=== PATIENT | female | born 1940 | race Caucasian/White ===

== ENCOUNTER 2024-03-09 16:19 | Emergency (ER) | payer MEDICARE, SELFPAY ==
--- NOTE | ~2024-03-09 | CT_ITS ---
EXAMINATION: CT head/brain wo IV con, CT cervical spine wo IV con INDICATION INFORMATION: fell hit head COMPARISON: Noncontrast head CT 12/12/2018 TECHNIQUE: Separate noncontrast CT examinations of the head and cervical spine were performed. Coronal and sagittal images were created for each examination at the technologist workstation. This CT examination was performed using dose optimization techniques as appropriate, variously including the following: *Automated exposure control *Adjustment of mA and/or kV according to patient size (this includes techniques or standardized protocols for targeted exams where dose is matched to indication/reason for exam; i.e. extremities or head) *Use of iterative reconstruction technique DLP: 750.62 mGy-cm FINDINGS: Head: Small left parietal scalp hematoma without subjacent calvarial fracture. The mastoid air cells and visualized portions of the paranasal sinuses are well aerated. There is no evidence of acute intracranial hemorrhage or territorial infarction. No abnormal mass effect or midline shift is seen. [place] to white matter differentiation is well preserved. No extra-axial fluid collections are identified. No hydrocephalus. No significant volume loss. Patchy periventricular and deep white matter hypoattenuation is consistent with mild small vessel ischemic changes. Cervical spine: There is no evidence of acute cervical spine fracture. Vertebral bodies remain normal in height. Exaggeration of the usual cervical lordosis with mild dextroconvex curvature. Mild, grade 1, 2 mm anterolisthesis of C3 on C4 and grade 2, 5 mm anterolisthesis of C4 on C5, likely secondary to moderate to severe left-sided facet arthropathy.. Multilevel loss of disc space height, moderate at C4-C5 and C5-C6. No areas of significant osseous spinal canal narrowing. No pre- or paravertebral soft tissue abnormality is identified. Mild biapical pleural-parenchymal scarring. Visualized portions of the lung apices are otherwise unremarkable. The thyroid gland is unremarkable. CT/CT cervical spine wo IV con IMPRESSION: 1. Small left parietal scalp hematoma without subjacent calvarial fracture. No other acute traumatic abnormality of the brain or cervical spine. 2. Moderate multilevel degenerative cervical spondylosis, most pronounced at C4-C5, where there is moderate anterolisthesis and disc space height loss.
--- NOTE | 2024-03-09 16:35 | ED.FALL ---
HPI - Fall General Chief Complaint: Fall Stated Complaint: fell hit head Time Seen by Provider: 03/09/24 18:26 Source: patient and family Mode of arrival: ambulatory Limitations: no limitations History of Present Illness HPI Narrative: 84 year old female with no significant past medical history presents emergency department, with family, for evaluation after fall. She reports that she hit the side of her head while trying to open a door when she lost her balance causing her to fall to the floor and her head hit the wall which is concrete. Denies LOC or headache. States that she has pain in her posterior head where she has a 'lump'. On baby aspirin but no other anticoagulants. Pertinent positives and negatives discussed in HPI Related Data Allergies Allergy/AdvReac Type Severity Reaction Status Date / Time nut - unspecified [NUTS] Allergy Severe ANAPHYLAXIS Verified 03/09/24 16:42 nitrofurantoin Allergy Unknown ITCHING Verified 03/09/24 16:42 [From MACROBID] Review of Systems Review of Systems: Yes all other systems are reviewed and are negative [facility] Social History Social History Advance Directives: Yes Advance Directives Information Provided: No Advance Directives on File: No Do you have a plan to hurt others: No Plan Physical Exam Vital Signs: Vital Signs: Last Vital Signs Temp 97.8 F 03/09/24 19:23 Pulse 67 03/09/24 19:23 Resp 18 03/09/24 19:23 BP 150/45 H 03/09/24 19:23 Pulse Ox 98 03/09/24 19:23 O2 Del Method Room Air 03/09/24 19:23 BMI result Body Mass Index 15.1 Nursing notes and vital signs reviewed. GENERAL APPEARANCE: A&0 x 4, generally well appearing, no acute distress HENMT: Normal to inspection face symmetrical. Normal external ears, nose. 8 mm superficial laceration at left parietal scalp with controlled bleeding EYE: PERRLA, EOM intact, structures appear normal NECK: Supple without stiffness or restricted ROM. HEART: Normal rate and regular rhythm, normal S1/S2, no M/R/G LUNGS: LS CTA, moving air well. Able to speak in complete sentences. No crackles, wheezes, or rhonchi auscultated BACK: No CVAT, no obvious deformity EXTREMITIES: Moving all extremities without difficulty. Normal capillary refill. NEUROLOGICAL: Alert and oriented, moving all 4 extremities with equal strength. CN not formally tested but appearing grossly intact. Observed to ambulate with normal gait. Cognition normal SKIN: Warm and dry without any lesions, rash, or visible sores Medical Decision Making Medical Decision Making MDM Narrative: Old records reviewed for previous imaging, lab studies, ECGs, and notes and additionally HPI obtained from patient's daughter. Patient was assessed the emergency department with no acute distress or toxicity noted. CT head and C-spine completed, which have independently interpreted, is negative for intracranial injury, fractures, or dislocations. Radiologist remarks on the parietal hematoma without fracturing. Patient's wound cleansed patient educated to keep wound clean and dry to prevent infection. Patient is safe for discharge at this time with plan for [id number] Tylenol and/or NSAID such as ibuprofen or naproxen for fever/discomfort with dosing as per packaging. HPI, PE, diagnostics, and plan discussed with patient and family with no unanswered questions at this time. Strict return precautions given to return to the emergency department with new, worsening, or concerning emergent symptoms. Recommended to follow-up with there primary care provider in 24-48 hours for further treatment and management. Differential Diagnosis Differential Diagnoses: The differential diagnosis associated with the presentation includes But not limited to fall, contusion fracture, dislocation, intracranial hemorrhage or injury, hematoma Independent Interpretation I performed an independent interpretation of an: CT Scan Independent Historian Clinical information obtained from an independent historian. History obtained from or confirmed by: Other Daughter Discharge Plan Discharge Clinical Impression: Fall, Left parietal scalp hematoma Patient Disposition: Home, Self-Care Instructions: Fall Prevention for Older Adults (ED), Scalp Contusion in Adults (ED) Additional Instructions: Your seen in the emergency department for evaluation after a fall. Your head and neck CT scan showed no evidence of bleeding inside the head or neck fractures or dislocations. Please rest and use ice for comfort You are safe for discharge at this time with plan for management of fever or discomfort with [id number] Tylenol and/or NSAID such as ibuprofen or naproxen with dosing as per packaging. Please return to the emergency department with new, worsening, or concerning emergent symptoms. Recommended to follow-up with your primary care provider in 24-48 hours for further treatment and management. Thank you for choosing [facility]. Referrals: [facility] [place]] [facility] [place]] [facility] [place]] Interventions: ED Discharge Assessment Last Done: 03/09/24 19:23 Discharge Date/Time: 03/09/24 19:24 Print Language: Faroese
[2024-03-09 16:36] VITALS: BP 144/87; PULSE 89; RESP 18; TEMP 36.5; O2SAT 99; BMI 15.1
[2024-03-09 18:17] VITALS: BP 146/88; PULSE 74; RESP 18; TEMP 36.6; O2SAT 99
[2024-03-09 18:58] VITALS: BP 150/45; PULSE 67; RESP 18; TEMP 36.6; O2SAT 98
--- NOTE | 2024-03-09 19:22 | PC.NURSE ---
this nurse did not see this patient, the patient was seen and discharged by the provider
[2024-03-09 19:23] VITALS: BP 150/45; PULSE 67; RESP 18; TEMP 36.6; O2SAT 98
== END 2024-03-09 19:24 | disposition home or self-care (01) ==
PROVIDERS: Emergency Provider Emergency Medicine; PCP Family Medicine
DX: S00.03XA Contusion of scalp, initial encounter (principal); W18.30XA Fall on same level, unspecified, initial encounter; Y93.9 Activity, unspecified; Y92.9 Unspecified place or not applicable; Y99.9 Unspecified external cause status
CPT/HCPCS: 70450; 72125; 99282; 99284

== ENCOUNTER 2024-08-21 11:26 | Emergency (ER) | payer MEDICARE, SELFPAY ==
--- NOTE | ~2024-08-21 | CT_ITS ---
EXAMINATION: CT HEAD WITHOUT CONTRAST CT FACIAL BONES WITHOUT CONTRAST CT CERVICAL SPINE WITHOUT CONTRAST CLINICAL INFORMATION: Fall. Right-sided facial pain. Head strike. COMPARISON: CT head from 03/09/2024. TECHNIQUE: Imaging was performed from the skull base to vertex without intravenous administration of contrast. In addition, helical noncontrast CT imaging was acquired through the cervical spine and facial bones and source images were reviewed along with axial reconstructions and sagittal and coronal MPRs. This CT examination was performed using dose optimization techniques as appropriate, variously including the following: *Automated exposure control. *Adjustment of mA and/or kV according to patient size (this includes techniques or standardized protocols for targeted exams where dose is matched to indication/reason for exam; i.e. extremities or head). *Use of iterative reconstruction technique. DLP: 1036 mGy-cm FINDINGS: Head: Chronic lacunar infarcts of the right lentiform nucleus and right thalamus.. No additional loss of kumar-white matter differentiation. No evidence of acute intracranial hemorrhage. Scattered and partially confluent hypoattenuation in the periventricular and deep white matter are consistent with moderate microangiopathy. Proportional prominence of the ventricles and sulcal spaces without evidence of obstructive hydrocephalus. No abnormal mass effect or midline shift. No extra-axial fluid collections. Calcific atherosclerotic disease of the intracranial internal carotid and vertebral arteries. No hyperdense vessel sign. No acute soft tissue or osseous abnormalities. Maxillofacial Bones: No evidence of maxillofacial bone fractures. The zygomatic arches remain intact. No nasal bone fracture. The nasal septum remains midline. No evidence of mandibular or maxillary fracture. The mandibular condyles remain well-seated in their respective temporal articular grooves. Moderate degenerative arthropathy of the left temporal mandibular joint. Normal appearance of the intraconal and extraconal fat. No evidence of traumatic injury to the extraocular musculature or globes. Mild mucosal thickening of the paranasal sinuses. The mastoid air cells and middle ear cavities are clear. No layering fluid collections. The patient is edentulous. Cervical Spine: The atlantooccipital and atlantoaxial articulations remain well aligned. Mild degenerative arthropathy of the atlantodental articulation. Moderate degenerative anterolisthesis of C4 on C5. Otherwise, there is anatomic alignment of the vertebral bodies and posterior elements. No evidence of acute fracture or subluxation. The vertebral body heights are maintained. Advanced degenerative disc disease at C4-C5. Moderate degenerative disc disease at C3-C4 and C5-C6. There is no prevertebral soft tissue swelling. The thyroid gland and remaining cervical soft tissues are within normal limits. The lung apices demonstrate no abnormalities. CT/CT cervical spine wo IV con IMPRESSION: 1. No evidence of acute intracranial hemorrhage or edematous territorial infarction. 2. No evidence of acute fracture or traumatic subluxation of the cervical spine. 3. No evidence of acute fracture of the maxillofacial bones. 4. Moderate underlying microangiopathy and generalized cerebral volume loss. Chronic lacunar infarcts of the right-sided deep nuclei. 5. Moderate multilevel degenerative spondyloarthropathy of the cervical spine. Electronically signed by: Calvin Santos DO 08/21/2024 03:56 PM EDT
[2024-08-21 11:34] VITALS: BP 134/81; PULSE 67; RESP 16; TEMP 36.3; O2SAT 100; BMI 16.8
--- NOTE | 2024-08-21 11:35 | ED.FALL ---
HPI - Fall General Chief Complaint: Head Injury Stated Complaint: Fall - head injury? Time Seen by Provider: 08/21/24 12:10 Source: patient and family Mode of arrival: ambulatory Limitations: no limitations History of Present Illness ED Provider: DOUGLAS HPI Narrative: 84 yo female with PMH of HTN, HLD, GERD, stage IV CKD here with c/o fall about 1.5 weeks ago states she tripped using her walker hit the side of fridge and struck L side of head. No LOC was not on the ground. Has brusing to L side of face. Denies any other injury. Since then has been more confused per family. She has fallen one other time. Family states she has refused to be seen until today. One daughter took her shopping and she was just saying odd things. The family has been more concerned and brought her in today. MD complaint: fall Onset (ago): week(s) (1) Fall from: standing Fall witnessed: no Place fall occurred: home Loss of consciousness: none Prolonged down time: no Symptoms prior to fall: none Context: tripped/slipped Location of injury: head and face Severity: mild Associated symptoms (after fall): confusion Related Data Allergies Allergy/AdvReac Type Severity Reaction Status Date / Time nut - unspecified [NUTS] Allergy Severe ANAPHYLAXIS Verified 08/21/24 11:41 nitrofurantoin Allergy Unknown ITCHING Verified 08/21/24 11:41 [From MACROBID] Review of Systems Review of Systems: Constitutional : No Fever, No Chills, No Fatigue ENT/Mouth : No sore throat, No Rhinorrhea Eyes: No Eye Pain, No Swelling, No Redness Cardiovascular : No Chest Pain, No SOB, No Dyspnea on Exertion Respiratory : No Cough, No Sputum Gastrointestinal : No Nausea, No Vomiting, No Diarrhea, No abdominal Pain Genitourinary : No Dysuria, No Urinary Frequency, No Hematuria, Musculoskeletal : No joint pain, No Myalgias, No Joint Swelling Skin : No Skin Lesions, No rash Neuro : No Weakness, No Numbness, No Dizziness, positive Headache Psych : No Anxiety/Panic, No Depression All other systems reviewed and are negative PMFSH Past Medical History Attestation statement: The following information was validated with the patient. Source: old records reviewed Medical History CKD (chronic kidney disease) stage 4, GFR 15-29 ml/min GERD (gastroesophageal reflux disease) Hyperlipidemia HTN (hypertension) Social History Social History (Updated 08/21/24 @ 13:09 by Leyla Strickland DO) Patient Tobacco Use Status: Tobacco use Unknown Advance Directives: No Advance Directives Information Provided: Yes Physical Exam Vital Signs: Vital Signs: Last Vital Signs Temp 97.4 F 08/21/24 15:30 Pulse 67 08/21/24 15:30 Resp 16 08/21/24 15:30 BP 135/60 08/21/24 15:30 Pulse Ox 99 08/21/24 15:30 O2 Del Method Room Air 08/21/24 15:30 BMI result Body Mass Index 16.8 Appearance: Alert. Oriented X3 - aware of hospital, month and person did have a hard time with time initially but was able to answer. No acute distress. Eyes: L pupils ERRL, R pupil cataract noted ENT: Pharynx normal. L eyebrow old contusion and abrasion noted Neck: Normal inspection. Neck supple. CVS: Normal heart rate and rhythm. Pulses normal. Respiratory: No respiratory distress. Breath sounds normal. Abdomen: Soft and nontender. Back: no trauma noted Skin: Skin warm and dry. Normal skin color. Normal skin turgor. Extremities: No lower extremity edema. Neuro: Oriented X 3. No motor deficit. No sensory deficit. had some difficulty following commands but no deficits noted Course Course Course Narrative: This is an RME: Additional HPI, ROS, PE not included below will be deferred to primary provider. RME assessment and note performed by: Jazzy Jean Baptiste PA-C This is a 84 year old female who presents to the ER with complaints of fall and concerns for abrasion on her left face. Family reports that there is a question of a head injury due to a fall that occurred 1 week ago. Family reports that it is unclear what caused her fall and if she did fall. Family reports that patient had stated that she struck her face on a freezer door however it is unclear if this is the mechanism. She lives at home alone. She is a poor historian. Family reports concerns for confusion. Pt denies any pain, she reports no weakness. She is alert and oriented x3, unsure of the year. Family member reports that she has had frequent falls over the last year. Left orbital ecchymosis and healing superficial abrasion noted. Good strength bilaterally, symmetric smile, no pronator drift, She is ambulatory with steady gait. She does have slumping posture noted on the left however family reports that this is chronic for her Plan: Labs, CT, EKG, further ER evaluation needed Reevaluation(s) Reevaluation #1: baseline Cr 1.75 mild bump today with elevated BUN dose 500 NS Medications Administered Generic Name Dose Route Start Last Admin Trade Name Freq PRN Reason Stop Dose Admin Sodium Chloride 500 mls @ 500 mls/hr 08/21/24 15:47 08/21/24 15:59 Ns IV 08/21/24 16:46 500 mls/hr .Q1H ONE Administration Medical Decision Making Medical Decision Making [facility] Narrative: 84 yo female with PMH of HTN, HLD, GERD, stage IV CKD here with c/o fall about a week ago now family noting confusion at this time will need basic labs, CT head/cspine/face, UA, EKG - her Cr is 2 but she has CKD stage 4 suspect this is her baseline. 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 08/21/24 12:30 08/21/24 12:30 Labs: Lab Results 08/21/24 08/21/24 Range/Units 12:30 12:46 WBC 5.6 (4.8-10.8) X10*3/uL RBC 3.37 L (4.20-5.50) X10*6/uL Hgb 10.8 L (12.0-16.0) g/dl Hct 32.8 L (37.0-47.0) % MCV 97.3 (80.0-98.0) fL MCH 32.0 (27.0-33.0) pg MCHC 32.9 (31.0-35.0) g/dl RDW 13.3 (11.0-16.0) % Plt Count 269 (160-400) X10*3/uL MPV 10.8 (9.4-12.3) fL Immature Gran % (Auto) 0.2 (0.0-0.4) % Neut % (Auto) 60.0 (45-73) % Lymph % (Auto) 27.8 (20-40) % [place] % (Auto) 7.5 (2-11) % Eos % (Auto) 3.4 (0-4) % Baso % (Auto) 1.1 (0-2) % Lymph # (Auto) 1.6 (1.2-4.9) X10*3/uL [place] # (Auto) 0.4 (0.1-1.2) X10*3/uL Eos # (Auto) 0.2 (0.0-0.4) X10*3/uL Baso # (Auto) 0.1 (0.0-0.2) X10*3/uL Abs Immat Gran (auto) 0.01 (0.00-0.03) X10*3/uL Absolute Neuts (auto) 3.4 (2.0-8.3) x10*3/uL Absolute Nucleated RBC 0.000 (0.0-0.012) X10*3/uL Nucleated RBC % (auto) 0.0 (0.0-0.2) /100WBC Sodium 142 (135-145) mmol/L Potassium 5.0 (3.3-5.1) mmol/L Chloride 114 H (96-108) mmol/L Carbon Dioxide 23 (22-29) mmol/L Anion Gap 10 L (12-20) BUN 42 H (9-16) mg/dL Creatinine 2.03 H (0.5-1.4) mg/dL Estim Creat Clear Calc 11.4 Estimated GFR 23 Random Glucose 81 (60-115) mg/dL Calcium 9.5 (8.4-10.2) mg/dL Magnesium 2.4 (1.6-2.6) mg/dL Total Bilirubin 0.2 (0.0-1.0) mg/dL Direct Bilirubin < 0.2 (0.0-0.5) mg/dL AST 28 (5-31) U/L ALT 13 (0-31) U/L Alkaline Phosphatase 68 (39-117) U/L Total Creatine Kinase 49 (26-140) U/L Troponin I High Sens 3.4 (<3.5-17.0) ng/L Total Protein 6.6 (6.5-8.0) g/dL Albumin 4.0 (3.5-5.0) g/dL Urine Color Yellow Urine Appearance Clear Urine pH 5.5 (5.0-9.0) Ur Specific [place] 1.015 (1.005-1.025) Urine Protein Negative (Neg-Trace) mg/dL Urine Glucose (UA) Negative (Negative) mg/dL Urine Ketones Negative (Negative) mg/dL Urine Blood Negative (Negative) Urine Nitrite Negative (Negative) Ur Leukocyte Esterase Negative (Negative) Independent Interpretation I performed an independent interpretation of an: EKG and CT Scan (no trauma) Interpretation: Rate: 64 Rhythm: NSR [place]: left Normal P waves. Normal MANISHA. Normal QRS complex. ST T wave : normal no ANDREA qTC: 404 prior studies: no acute ischemia The study has been interpreted contemporaneously by me. . Radiology Impression Discussion of test interpretation with radiology: I have reviewed the radiologist's reading. Independent Historian Clinical information obtained from an independent historian. History obtained from or confirmed by: Other (daughter) External Record Review External record reviewed: Prior outpatient labs Discharge Plan Discharge Clinical Impression: Acute dehydration Closed head injury Qualifiers: Encounter type: initial encounter Qualified Code(s): S09.90XA - Unspecified injury of head, initial encounter Patient Disposition: Still a Patient Print Language: Kazakh
--- NOTE | 2024-08-21 11:42 | ECG_ITS ---
Test Reason : FALL Blood Pressure : / mmHG Vent. Rate : 064 BPM Atrial Rate : 064 BPM P-R Int : 136 ms QRS Dur : 076 ms QT Int : 392 ms P-R-T Axes : 049 -06 045 degrees QTc Int : 404 ms Normal sinus rhythm Normal ECG When compared with ECG of 06-MAR-2020 09:11, Nonspecific T wave abnormality no longer evident in Lateral leads Referred By: Jazzy Jean Baptiste Electronically Signed By:Alessandro Ge
[2024-08-21 12:36] LABS: MANUAL DIFF FLAG NO
[2024-08-21 12:40] LABS: Basophils Absolute Auto 0.1 X10*3/uL (0.0-0.2); Basophils Percent Auto 1.1 % (0-2); Eosinophils Absolute Auto 0.2 X10*3/uL (0.0-0.4); Eosinophils Percent Auto 3.4 % (0-4); Hematocrit 32.8 % (37.0-47.0); Hemoglobin 10.8 g/dl (12.0-16.0); Imm Gran Abs Auto 0.01 X10*3/uL (0.00-0.03); Imm Gran Pct Auto 0.2 % (0.0-0.4); Lymphocytes Absolute Auto 1.6 X10*3/uL (1.2-4.9); Lymphocytes Percent Auto 27.8 % (20-40); Mean Corpuscular HGB Conc 32.9 g/dl (31.0-35.0); Mean Corpuscular Volume 97.3 fL (80.0-98.0); Mean Platelet Volume 10.8 fL (9.4-12.3); Monocytes Absolute Auto 0.4 X10*3/uL (0.1-1.2); Monocytes Percent Auto 7.5 % (2-11); Neutrophils Absolute Auto 3.4 x10*3/uL (2.0-8.3); Platelet Count 269 X10*3/uL (160-400); Red Blood Count 3.37 X10*6/uL (4.20-5.50); Red Cell Distribution Width 13.3 % (11.0-16.0); White Blood Count 5.6 X10*3/uL (4.8-10.8)
[2024-08-21 12:49] VITALS: BP 134/54; PULSE 59; RESP 14; TEMP 36.6; O2SAT 98
[2024-08-21 12:51] LABS: Alanine Aminotransferase 13 U/L (0-31); Alkaline Phosphatase 68 U/L (39-117); Anion Gap 10 (12-20); Aspartate Amino Transferase 28 U/L (5-31); Bilirubin Direct < 0.2 mg/dL (0.0-0.5); Bilirubin Total 0.2 mg/dL (0.0-1.0); Blood Urea Nitrogen 42 mg/dL (9-16); Calcium 9.5 mg/dL (8.4-10.2); Carbon Dioxide 23 mmol/L (22-29); Chloride 114 mmol/L (96-108); Creatinine Clr Calc Pharmacy 11.4; Estimated Glomerular Filt Rate 23; Glucose Random 81 mg/dL (60-115); Magnesium 2.4 mg/dL (1.6-2.6); Sodium 142 mmol/L (135-145); Total Protein 6.6 g/dL (6.5-8.0)
[2024-08-21 12:53] LABS: Appearance Urine Clear; Color Urine Yellow; Glucose Urine UA Negative (Negative); Leukocyte Esterase Urine Negative (Negative); Nitrite Urine Negative (Negative); PH 5.5 (5.0-9.0); Specific Gravity - Urine 1.015 (1.005-1.025); Urine Blood Negative (Negative); Urine Ketones Negative (Negative); Urine Protein Negative (Neg-Trace)
[2024-08-21 12:58] LABS: Troponin-I High Sensitivity 3.4 ng/L (<3.5-17.0)
[2024-08-21 15:30] VITALS: BP 135/60; PULSE 67; RESP 16; TEMP 36.3; O2SAT 99
[2024-08-21] MEDS: 0.9 % Sodium Chloride 500 ML IV (15:59)
--- NOTE | 2024-08-21 16:16 | PC.NURSE ---
22# placed in patients left FA, plan for patient to stay CM, family and patient aware of plan
--- NOTE | 2024-08-21 17:33 | PC.NURSE ---
Dinner tray ordered. Dunbar, brussel sprouts, and rice pilaf.
[2024-08-21 17:34] VITALS: BP 144/65; PULSE 58; RESP 16; TEMP 35.6; O2SAT 98
[2024-08-21 20:00] VITALS: BP 128/64; PULSE 93; RESP 18; TEMP 36.6; O2SAT 95
[2024-08-21 21:54] VITALS: BP 127/64; PULSE 79; RESP 16; TEMP 36.4; O2SAT 96
--- NOTE | 2024-08-21 23:17 | PC.NURSE ---
This RN received report and took of care of patient at this time.
--- NOTE | 2024-08-22 00:39 | PC.NURSE ---
Pt ambulate to and from the restroom with walker, strong steady gait
--- NOTE | 2024-08-22 02:45 | PC.NURSE ---
Pt asleep, resting comfortably
[2024-08-22 04:47] VITALS: BP 157/65; PULSE 88; RESP 16; TEMP 37; O2SAT 96
[2024-08-22 08:00] VITALS: BP 142/63; PULSE 98; RESP 16; TEMP 36.7; O2SAT 99
--- NOTE | 2024-08-22 08:47 | MHC.EDTECH ---
Pt ate 50% of her breakfast. Apple juice left at bedside
--- NOTE | 2024-08-22 10:02 | PHA.MEDREC ---
Pharmacy Consult ? Medication Reconciliation Pharmacy has reviewed the medication reconciliation completed by nursing.
[2024-08-22 10:23] VITALS: BP 142/63
[2024-08-22] MEDS: Losartan Potassium 50 MG TABLET 100 MG PO (10:23)
[2024-08-22] MEDS: amLODIPine Besylate 5 MG TABLET PO (10:23)
[2024-08-22 10:36] VITALS: BP 142/63; PULSE 98
[2024-08-22] MEDS: Metoprolol Tartrate 50 MG TABLET PO (10:36)
[2024-08-22 11:54] VITALS: BP 139/71; PULSE 73; RESP 18; TEMP 37.2; O2SAT 99
--- NOTE | 2024-08-22 11:58 | MHC.CM.ED ---
Received case management consult overnight. Patient came to the ER after a fall. Work up essentially negative. Physical therapy eval completed. Home with services is recommended. Met with patient and daughter, Paty, in regards to discharge planning. Patient lives alone, ambulates with a rollator and had no services prior to coming to the ER. PCP verified. Copy of HCP verified to be on file. Patient has received physical therapy from [facility] in the past and is requesting referral to their agency. Referral made for physcial therapy. Patient's daughter, Paty will transport patient home. Patient, Paty, Sandy MENSAH and Geno REYES aware. Continue to monitor for d/c needs.
== END 2024-08-22 12:16 | disposition home or self-care (01) ==
PROVIDERS: Physician Assistant Medical; Emergency Provider Emergency Medicine; PCP Family Medicine
DX: E86.0 Dehydration (principal); S09.90XA Unspecified injury of head, initial encounter; W01.198A Fall on same level from slipping, tripping and stumbling with subsequent striking against other object, initial encounter; Z91.81 History of falling; I12.9 Hypertensive chronic kidney disease with stage 1 through stage 4 chronic kidney disease, or unspecified chronic kidney disease; N18.4 Chronic kidney disease, stage 4 (severe); Y93.89 Activity, other specified; Y92.030 Kitchen in apartment as the place of occurrence of the external cause; Y99.9 Unspecified external cause status
CPT/HCPCS: 36415; 70450; 70486; 72125; 80048; 80076; 81003; 82550; 83735; 84484; 85025; 93005; 96360; 97161; 99285

== ENCOUNTER → 2024-08-21 11:42 | Outpatient (BNV) | payer MEDICARE, SELFPAY | PROVIDERS: Emergency Provider Emergency Medicine; PCP Family Medicine; Visit Provider Internal Medicine Cardiovascular Disease | DX: I10 Essential (primary) hypertension (principal) | CPT/HCPCS: 93010 ==

== ENCOUNTER 2024-10-05 17:27 | Inpatient (IN) | payer MEDICARE, SELFPAY ==
[2024-10-05] VITALS (9 sets, daily range): BP systolic 117–165; BP diastolic 54–85; PULSE 75–116; RESP 16–20; TEMP 36.4–36.9; O2SAT 94–100; BMI 15.8
--- NOTE | ~2024-10-05 | CT_ITS ---
EXAMINATION: CT HEAD WITHOUT CONTRAST CLINICAL INFORMATION: Difficulty speaking. COMPARISON: CT head from 08/21/2024. TECHNIQUE: Contiguous axial imaging was performed from the skull base to vertex without intravenous administration of contrast. This CT examination was performed using dose optimization techniques as appropriate, variously including the following: *Automated exposure control. *Adjustment of mA and/or kV according to patient size (this includes techniques or standardized protocols for targeted exams where dose is matched to indication/reason for exam; i.e. extremities or head). *Use of iterative reconstruction technique. DLP: 604 mGy-cm FINDINGS: There is no evidence of acute intracranial hemorrhage or edematous territorial infarction. Landeros-white matter differentiation is preserved. Scattered and partially confluent hypoattenuation in the periventricular and deep white matter are consistent with moderate microangiopathy. Proportional prominence of the ventricles and sulcal spaces without evidence of obstructive hydrocephalus. No abnormal mass effect or midline shift. No extra-axial fluid collections. Calcific atherosclerotic disease of the intracranial internal carotid and vertebral arteries. No hyperdense vessel sign. No acute soft tissue or osseous abnormalities. Mild mucosal thickening of the paranasal sinuses. Mild leftward nasal septal deviation. The mastoid air cells and middle ear cavities are clear. CT/CT head for STROKE IMPRESSION: 1. No evidence of acute intracranial hemorrhage or edematous territorial infarction. 2. Moderate underlying microangiopathy and generalized cerebral volume loss. Electronically signed by: Calvin Santos DO 10/05/2024 05:49 PM [facility]
--- NOTE | ~2024-10-05 | MR_ITS ---
EXAMINATION: MR BRAIN WITHOUT CONTRAST CLINICAL INFORMATION: Slurred speech. COMPARISON: CT head from 10/05/2024. TECHNIQUE: MRI of the brain was obtained using routine sequences without contrast. FINDINGS: No focal restricted diffusion is demonstrated to suggest acute or subacute cerebral ischemia. No evidence of acute or chronic hemorrhagic products on heme-sensitive imaging. Scattered and partially confluent periventricular, deep white matter, and brainstem T2 FLAIR hyperintensities consistent with moderate underlying microangiopathy. Proportional prominence of the ventricles and sulcal spaces without evidence of obstructive hydrocephalus. No abnormal mass effect. No midline shift. Normal appearance of the pituitary gland. Normal positioning of the cerebellar tonsils. Normal arterial and venous vascular flow voids are present. Normal, homogeneous marrow signal. Mild mucosal thickening of the paranasal sinuses. No signal abnormalities within the mastoids. MR/MR head/brain wo con IMPRESSION: 1. No acute intracranial abnormalities. 2. Moderate underlying microangiopathy and generalized cerebral volume loss. Electronically signed by: Calvin Santos DO 10/06/2024 05:35 PM [facility]
[2024-10-05 17:37] LABS: Prothrombin Time Whole Bld POC 12.8 sec (11.1-13.5); ~PT, ~INR - Anti Coag Clinic 1.1 (0.9-1.1)
--- NOTE | 2024-10-05 17:37 | ECG_ITS ---
Test Reason : ?STROKE Blood Pressure : / mmHG Vent. Rate : 094 BPM Atrial Rate : 094 BPM P-R Int : 142 ms QRS Dur : 070 ms QT Int : 326 ms P-R-T Axes : 052 -11 034 degrees QTc Int : 407 ms Normal sinus rhythm Normal ECG When compared with ECG of 21-AUG-2024 12:08, No significant change was found Referred By: Mathew Reece Electronically Signed By:Alessandro Ge
[2024-10-05 17:38] LABS: Glucose, Whole Blood 161 mg/dL (60-115)
--- NOTE | 2024-10-05 17:51 | ED_ITS ---
HPI - Neuro Symptoms/Deficit General Chief Complaint: Stroke Stated Complaint: STROKE ALERT Time Seen by Provider: 10/05/24 17:36 History of Present Illness ED Provider: Shanell ESPAÑA Narrative: The patient is an 84-year-old woman who lives alone in her own apartment. She normally gets around with a walker. Yesterday she was doing fairly well and she went out for lunch with her daughter. Today the daughter spoke on the phone with the patient and she seemed to have very garbled speech. The daughter went to see her and felt that her speech was still somewhat garbled. The daughter wanted her to come to the hospital and initially attempted to bring her by herself but the patient seemed more unsteady on her feet than usual and so her daughter called 911. The patient was called in his a stroke alert. Paramedics said that patient had quite garbled speech when they arrived but that her speech improved EN route to the hospital. The patient was last seemed to be at her baseline yesterday. There is no report of any fever, sweats, chills. The patient denies headache, chest pain, shortness of breath, abdominal pain, nausea, vomiting. Related Data Home Medications ?Medication ?Instructions ?Recorded ?Confirmed amlodipine 5 mg tablet 5 mg PO DAILY 08/22/24 08/22/24 atorvastatin 80 mg tablet 80 mg PO DAILY 08/22/24 08/22/24 losartan 100 mg tablet 100 mg PO DAILY 08/22/24 08/22/24 metoprolol tartrate 50 mg tablet 50 mg PO BID 08/22/24 08/22/24 Allergies Allergy/AdvReac Type Severity Reaction Status Date / Time nut - unspecified [NUTS] Allergy Severe ANAPHYLAXIS Verified 10/05/24 17:41 nitrofurantoin Allergy Unknown ITCHING Verified 10/05/24 17:41 [From MACROBID] Review of Systems 2 Review of Systems: Yes all other systems are reviewed and are negative PENDING SALE TO [facility] Past Medical History Medical History (Updated 10/05/24 @ 20:35 by Mathew Reece MD) Chronic anemia CKD (chronic kidney disease) stage 4, GFR 15-29 ml/min GERD (gastroesophageal reflux disease) Hyperlipidemia HTN (hypertension) Social History Social History (Updated 08/21/24 @ 13:09 by Leyla Strickland DO) Patient Tobacco Use Status: Former Tobacco user Smoked in Last 30 Days: No Use of substances other than those prescribed or required for medical reasons: No Advance Directives: Yes Advance Directives Information Provided: No Advance Directives on File: No Do you have a plan to hurt others: No Plan Nutrition Risks: No Nutritional Risk Physical Exam 2 Vital Signs: Vital Signs: Last Vital Signs Temp 97.6 F 10/05/24 21:50 Pulse 62 10/06/24 01:43 Resp 20 10/06/24 01:43 BP 122/56 L 10/06/24 01:43 Pulse Ox 98 10/06/24 01:43 O2 Del Method Room Air 10/06/24 01:43 BMI result Body Mass Index 15.8 Const: Other: The patient is a small, frail looking 84-year-old. She is awake and alert. She has a very pleasant demeanor. She does not seem in distress. HEENT: Other: No definite facial asymmetry. Tongue is midline. Eyes: Other: Pupils are round equal, lateral gaze is intact bilaterally. Visual gorman are intact to confrontation. Neck: Neck: Yes no JVD Resp: Effort & Inspection: normal respiratory effort Auscultation: clear to auscultation bilaterally Cardio: Rate: regular rate Heart sounds: S2 normal heart sound present GI: Other: Abdomen is soft and nontender Skin: Other: Skin is dry and unremarkable Neuro: Other: The patient is awake and alert. She is pleasant and does not seem to have an obvious neurological deficit. She is poorly oriented however and could not give me her correct age or the correct month. Eye movements are intact. Visual gorman are intact. Her speech does not show dysarthria. She is able to speak fluently but frequently does not seem to be able to find the words he wants to say. This causes a holding to her speech. There may be some minimal right pronator drift. I also felt that her right leg seemed weaker than the left leg. NIH stroke scale is about 5. Extrem: Other: No peripheral edema Medications Administered Generic Name Dose Route Start Last Admin Trade Name Freq PRN Reason Stop Dose Admin Sodium Chloride 3 ml 10/06/24 00:00 10/06/24 01:42 0.9 % Sodium Chloride Flush 3 Ml Syringe IVFLUSH 3 ml QSHIFT CHILO Administration Discontinued Medications Generic Name Dose Route Start Last Admin Trade Name Freq PRN Reason Stop Dose Admin Aspirin 325 mg 10/05/24 19:25 10/05/24 19:58 Aspirin 325 Mg Tablet PO 10/05/24 19:26 325 mg ONCE ONE Administration Metoprolol Tartrate 50 mg 10/05/24 19:33 10/05/24 19:58 Metoprolol Tartrate 50 Mg Tablet PO 10/05/24 19:34 50 mg ONCE ONE Administration Protocol Medical Decision Making Medical Decision Making MDM Narrative: The patient is an 84-year-old woman whose daughter feels has had an abrupt change in her ability to express herself. The daughter says her symptoms were worse before arriving at the hospital. The daughter describes garbled speech. Here in the emergency room the patient's speech is not garbled but she seems poorly oriented and has some trouble with word finding. I think she might have some very slight weakness of the right arm in the right leg. It is possible this is a stroke or TIA syndrome. Noncontrast head CT is negative. The patient is not a thrombolytic therapy candidate because her last known well time was yesterday. The patient has a history of renal disease and so a CT angiogram was deferred. The patient's symptoms has been improving. The patient will be admitted for further care and possible stroke workup. Lab Data 10/05/24 18:05 10/05/24 18:05 Labs: Lab Results 10/05/24 10/05/24 10/05/24 Range/Units 17:29 17:31 18:05 WBC 9.2 (4.8-10.8) X10*3/uL RBC 3.32 L (4.20-5.50) X10*6/uL Hgb 10.5 L (12.0-16.0) g/dl Hct 32.0 L (37.0-47.0) % MCV 96.4 (80.0-98.0) fL MCH 31.6 (27.0-33.0) pg MCHC 32.8 (31.0-35.0) g/dl RDW 13.1 (11.0-16.0) % Plt Count 235 (160-400) X10*3/uL MPV 11.0 (9.4-12.3) fL Immature Gran % (Auto) 0.3 (0.0-0.4) % Neut % (Auto) 70.1 (45-73) % Lymph % (Auto) 18.3 L (20-40) % Reagan % (Auto) 9.2 (2-11) % Eos % (Auto) 1.6 (0-4) % Baso % (Auto) 0.5 (0-2) % Lymph # (Auto) 1.7 (1.2-4.9) X10*3/uL [place] # (Auto) 0.9 (0.1-1.2) X10*3/uL Eos # (Auto) 0.2 (0.0-0.4) X10*3/uL Baso # (Auto) 0.1 (0.0-0.2) X10*3/uL Abs Immat Gran (auto) 0.03 (0.00-0.03) X10*3/uL Absolute Neuts (auto) 6.4 (2.0-8.3) x10*3/uL Absolute Nucleated RBC 0.000 (0.0-0.012) X10*3/uL Nucleated RBC % (auto) 0.0 (0.0-0.2) /100WBC PT 11.3 (10.9-12.4) SEC Whole Blood PT 12.8 (11.1-13.5) sec INR 1.0 (0.9-1.1) Whole Blood INR 1.1 (0.9-1.1) APTT 28.2 (26.0-36.8) SEC Sodium 143 (135-145) mmol/L Potassium 4.9 (3.3-5.1) mmol/L Chloride 110 H (96-108) mmol/L Carbon Dioxide 23 (22-29) mmol/L Anion Gap 15 (12-20) BUN 38 H (9-16) mg/dL Creatinine 1.96 H (0.5-1.4) mg/dL Estim Creat Clear Calc 11.9 Estimated GFR 24 POC Glucose 161 H (60-115) mg/dL Random Glucose 128 H (60-115) mg/dL Calcium 9.4 (8.4-10.2) mg/dL Troponin I High Sens 15.0 D (<3.5-17.0) ng/L Triglycerides 75 (<150) mg/dL Cholesterol 148 (<200) mg/dL LDL Cholesterol, Calc 73 (<100) mg/dL HDL Cholesterol 60 (>40) mg/dL Independent Interpretation I performed an independent interpretation of an: EKG Interpretation: EKG at 17:50 shows normal sinus rhythm at 94 beats per minute. No acute ischemic changes Discharge Plan Discharge Clinical Impression: Altered mental status Patient Disposition: Admitted As Inpatient
[2024-10-05 18:09] LABS: MANUAL DIFF FLAG NO
[2024-10-05 18:13] LABS: Basophils Absolute Auto 0.1 X10*3/uL (0.0-0.2); Basophils Percent Auto 0.5 % (0-2); Eosinophils Absolute Auto 0.2 X10*3/uL (0.0-0.4); Eosinophils Percent Auto 1.6 % (0-4); Hemoglobin 10.5 g/dl (12.0-16.0); Imm Gran Abs Auto 0.03 X10*3/uL (0.00-0.03); Imm Gran Pct Auto 0.3 % (0.0-0.4); Lymphocytes Absolute Auto 1.7 X10*3/uL (1.2-4.9); Lymphocytes Percent Auto 18.3 % (20-40); Mean Corpuscular HGB Conc 32.8 g/dl (31.0-35.0); Mean Corpuscular Hemoglobin 31.6 pg (27.0-33.0); Mean Corpuscular Volume 96.4 fL (80.0-98.0); Monocytes Absolute Auto 0.9 X10*3/uL (0.1-1.2); Monocytes Percent Auto 9.2 % (2-11); Neutrophils Absolute Auto 6.4 x10*3/uL (2.0-8.3); Neutrophils Percent Auto 70.1 % (45-73); Platelet Count 235 X10*3/uL (160-400); Red Blood Count 3.32 X10*6/uL (4.20-5.50); Red Cell Distribution Width 13.1 % (11.0-16.0); White Blood Count 9.2 X10*3/uL (4.8-10.8)
[2024-10-05 18:17] LABS: Prothrombin Time 11.3 SEC (10.9-12.4)
[2024-10-05 18:19] LABS: Partial Thromboplastin Time 28.2 SEC (26.0-36.8)
[2024-10-05 18:25] LABS: Anion Gap 15 (12-20); Blood Urea Nitrogen 38 mg/dL (9-16); Calcium 9.4 mg/dL (8.4-10.2); Carbon Dioxide 23 mmol/L (22-29); Chloride 110 mmol/L (96-108); Cholesterol 148 mg/dL (<200); Creatinine Clr Calc Pharmacy 11.9; Estimated Glomerular Filt Rate 24; Glucose Random 128 mg/dL (60-115); HDL Cholesterol 60 mg/dL (>40); LDL Cholesterol Calculated 73 mg/dL (<100); Potassium 4.9 mmol/L (3.3-5.1); Sodium 143 mmol/L (135-145); Triglycerides 75 mg/dL (<150)
[2024-10-05 18:26] LABS: Stroke Lab Use COMPLETE
--- NOTE | 2024-10-05 19:33 | P.HPHOSP_ITS ---
History of Present Illness Date of Service: 10/05/24 Attending physician on admission: Jm Cole Chief Complaint: Slurred speech Concha Garcia is 84 years old woman with past medical history significant for brain aneurysm (no requiring interventions), hypertension and hyperlipidemia was brought to the emergency department via EMS after she was noted to have slurred speech around 4 pm (today). One of her daughters were talking with her over the phone and noticed the patient had incomprehensible speech. Daughter went to patient's house to check on her and noted that she was also very confused and was unable to walk well. Patient's symptoms resolved upon arrival to the ED. Focal weakness or facial droop was not reported. Patient did not report any pain did not complain of any acute cardiopulmonary or gastrointestinal symptoms. Also, she did not report any headache or dizziness. The patient takes a baby aspirin daily and statin. There is no history of tobacco smoking. In the ED, she was found to have stable vital signs. Last blood pressure is 130/71. Blood workup showed no leukocytosis, hemoglobin is at baseline and platelets are normal. There are no significant electrolyte imbalances. BUN is 38 and creatinine is 1.96 (around baseline). Troponin is 15. LFTs are normal. Head CT scan without contrast showed no acute intracranial hemorrhage or infarction. Head and neck CTA was not performed due to patient's current renal function. ECG showed normal sinus rhythm, heart rate 94 beats per minute and no acute ischemic changes. ED tx: none Review of Systems 2 Review of Systems: All 12 systems were reviewed and normal except as noted in HPI. [facility] Medical History (Updated 10/05/24 @ 19:49 by Jm Cole MD) Chronic anemia CKD (chronic kidney disease) stage 4, GFR 15-29 ml/min GERD (gastroesophageal reflux disease) Hyperlipidemia HTN (hypertension) Social History (Updated 08/21/24 @ 13:09 by Leyla Strickland DO) Patient Tobacco Use Status: Tobacco use Unknown Smoked in Last 30 Days: No Use of substances other than those prescribed or required for medical reasons: No Advance Directives: Yes Advance Directives Information Provided: No Advance Directives on File: No Do you have a plan to hurt others: No Plan Meds Allergies Allergy/AdvReac Type Severity Reaction Status Date / Time nut - unspecified [NUTS] Allergy Severe ANAPHYLAXIS Verified 10/05/24 17:41 nitrofurantoin Allergy Unknown ITCHING Verified 10/05/24 17:41 [From MACROBID] Active Medications: Current Medications Acetaminophen (Acetaminophen 325 Mg Tablet) 975 mg PO Q6H PRN PRN Reason: Pain, Mild (Pain Scale 1-3), fever or headache Aspirin (Aspirin Enteric Coated 81 Mg Tablet.Dr) 81 mg PO DAILY CHILO Calcium Carbonate (Calcium Carbonate 750 Mg Tab.Chew) 750 mg PO Q4H PRN PRN Reason: Heartburn Heparin Sodium (Porcine) (Heparin Sodium,Porcine 5,000 Unit/Ml Vial) 5,000 unit SUBCUT Q12H CHILO Magnesium Hydroxide (Milk Of Magnesia 30 Ml Oral.Susp) 30 ml PO DAILY PRN PRN Reason: Constipation Melatonin (Melatonin 3 Mg Tablet) 6 mg PO BEDTIME PRN PRN Reason: Insomnia Sodium Chloride (0.9 % Sodium Chloride Flush 3 Ml Syringe) 3 ml IVFLUSH QSHIFT CHILO Home Medications ?Medication ?Instructions ?Recorded ?Confirmed ?Last Taken ?Type amlodipine 5 mg tablet 5 mg PO DAILY 08/22/24 08/22/24 Unknown History atorvastatin 80 mg tablet 80 mg PO DAILY 08/22/24 08/22/24 Unknown History losartan 100 mg tablet 100 mg PO DAILY 08/22/24 08/22/24 Unknown History metoprolol tartrate 50 mg tablet 50 mg PO BID 08/22/24 08/22/24 Unknown History Physical Exam 2 Vital Signs and Narrative: Vital Signs: Last Vital Signs Temp 98.3 F 10/05/24 18:26 Pulse 88 10/05/24 19:05 Resp 20 10/05/24 19:05 BP 130/71 10/05/24 19:05 Pulse Ox 100 10/05/24 19:05 O2 Del Method Room Air 10/05/24 19:05 BMI result Body Mass Index 15.8 Constitutional - Awake and Alert, No apparent distress. Cooperative. Pleasant. HEENT - PER, EOMI. Heart - RRR, (+) murmur. Lungs - Normal lung expansion, Normal respiratory effort, No respiratory distress, CTA bilaterally Abdomen - non tender Extremities - no calf tenderness bilaterally, no swelling Musculoskeletal - Normal inspection, normal ROM Skin - Warm/Dry Neurological - Alert & oriented x2, CN III-XII in tact, 4/5 strength BUE and BLE Psychological - Appropriate affect Results Labs 10/05/24 18:05 10/05/24 18:05 Labs: Laboratory Results - last 24 hr 10/05/24 10/05/24 10/05/24 17:29 17:31 18:05 MCV 96.4 MCH 31.6 MCHC 32.8 RDW 13.1 Plt Count 235 MPV 11.0 Immature Gran % (Auto) 0.3 Neut % (Auto) 70.1 Lymph % (Auto) 18.3 L Ross % (Auto) 9.2 Eos % (Auto) 1.6 Baso % (Auto) 0.5 Lymph # (Auto) 1.7 Ross # (Auto) 0.9 Eos # (Auto) 0.2 Baso # (Auto) 0.1 Abs Immat Gran (auto) 0.03 Absolute Neuts (auto) 6.4 Absolute Nucleated RBC 0.000 Nucleated RBC % (auto) 0.0 PT 11.3 Whole Blood PT 12.8 INR 1.0 Whole Blood INR 1.1 APTT 28.2 Anion Gap 15 Estim Creat Clear Calc 11.9 Estimated GFR 24 POC Glucose 161 H Random Glucose 128 H Calcium 9.4 Troponin I High Sens 15.0 D Triglycerides 75 Cholesterol 148 LDL Cholesterol, Calc 73 HDL Cholesterol 60 Imaging Radiologist's Impressions: Impressions Head CT 10/05/24 17:36 IMPRESSION: 1. No evidence of acute intracranial hemorrhage or edematous territorial infarction. 2. Moderate underlying microangiopathy and generalized cerebral volume loss. Electronically signed by: Calvin Santos DO 10/05/2024 05:49 PM EST Assessment and Plan (1) Slurred speech: Status: Acute Plan Concha Garcia is 84 y/o woman with PMHx significant for brain aneurysm (no requiring interventions) presents with: * Slurred speech, suspected TIA. Observation under hospitalist service. Telemetry. Neuro checks every 4 hours. Continue aspirin and statin. Brain MRI without contrast. TTE. Check urinalysis. Neurologic consult. * Essential hypertension. Continue metoprolol and losartan. * Hyperlipidemia. Continue statin (already taking 80 mg of atorvastatin daily). * Chronic anemia. Continue to monitor. * CKD, advanced. Creatinine stable. Avoid nephrotoxic agents. Continue to monitor renal function. * Protein calorie malnutrition. BMI 15.8 kg/m2. Dietary consult. DVT prophylaxis: Heparin Code status: Full Quality Stroke Does the patient have a stroke diagnosis?: No VTE Prior VTE?: No VTE Risk Level:: Medical - moderate - high VTE Device Contraindication: Treatment Not Indicated VTE Drug Contraindication: N/A - Med Ordered
[2024-10-05] MEDS: Aspirin 325 MG TABLET PO (19:58)
[2024-10-05] MEDS: Metoprolol Tartrate 50 MG TABLET PO (19:58)
[2024-10-05 20:24] LABS: Appearance Urine Clear; Color Urine Yellow; Glucose Urine UA Negative (Negative); Leukocyte Esterase Urine Negative (Negative); Nitrite Urine Negative (Negative); PH 5.5 (5.0-9.0); Specific Gravity - Urine 1.015 (1.005-1.025); Urine Blood Negative (Negative); Urine Ketones Negative (Negative); Urine Protein Negative (Neg-Trace)
--- NOTE | 2024-10-05 20:29 | PC.NURSE ---
pt medicated per DEC. UA collected via straight cath. pt tolerated well. family at bedside, food provided per request. call jim w/in reach
[2024-10-06] VITALS (7 sets, daily range): BP systolic 122–149; BP diastolic 56–88; PULSE 62–96; RESP 14–22; TEMP 36.4–37.3; O2SAT 96–99; BMI 16.0
[2024-10-06] MEDS: 0.9 % Sodium Chloride Flush 3 ML SYRINGE IVFLUSH (01:42)
[2024-10-06 05:48] LABS: Hematocrit 32.5 % (37.0-47.0); Hemoglobin 10.6 g/dl (12.0-16.0); Mean Corpuscular HGB Conc 32.6 g/dl (31.0-35.0); Mean Corpuscular Hemoglobin 31.6 pg (27.0-33.0); Platelet Count 231 X10*3/uL (160-400); Red Blood Count 3.35 X10*6/uL (4.20-5.50); White Blood Count 7.4 X10*3/uL (4.8-10.8)
--- NOTE | 2024-10-06 06:00 | ECG_ITS ---
Test Reason : REPEAT Blood Pressure : / mmHG Vent. Rate : 066 BPM Atrial Rate : 066 BPM P-R Int : 116 ms QRS Dur : 072 ms QT Int : 386 ms P-R-T Axes : 021 -07 028 degrees QTc Int : 404 ms Normal sinus rhythm Normal ECG When compared with ECG of 05-OCT-2024 17:50, No significant change was found Referred By: Jm Cole Electronically Signed By:Alessandro Ge
--- NOTE | 2024-10-06 06:03 | PC.NURSE ---
admission note: pt BIBA for slurred speech, confusion and difficulty walking. all altered from baseline per daughter. sx resolved upon arrival to the ED. Head CT scan w/out contrast showed no acute intracranial hemorrhage or infarction. Head and neck CTA was not performed due to pt's renal function. ADMIT: altered speech/suspected TIA. 20g LAC. VSS, NSR on tele. neuros intact. passed nursing swallow exam. pt is A/O x4 but does forget to use call fernandez after being instructed, needs reteaching about purewick, etc. pt is calm and cooperative with care, ambulatory with assist or walker. MRI today
[2024-10-06 06:06] LABS: Anion Gap 14 (12-20); Blood Urea Nitrogen 44 mg/dL (9-16); Calcium 9.4 mg/dL (8.4-10.2); Carbon Dioxide 23 mmol/L (22-29); Chloride 111 mmol/L (96-108); Cholesterol 144 mg/dL (<200); Creatinine Clr Calc Pharmacy 10.8; Estimated Glomerular Filt Rate 22; Glucose Random 99 mg/dL (60-115); HDL Cholesterol 61 mg/dL (>40); LDL Cholesterol Calculated 71 mg/dL (<100); Potassium 5.2 mmol/L (3.3-5.1); Sodium 143 mmol/L (135-145); Triglycerides 64 mg/dL (<150)
--- NOTE | 2024-10-06 07:23 | PC.NURSE ---
patient sitting up eating breakfast, awake and alert. patient VSS, neuros intact, speech clear
[2024-10-06] MEDS: Heparin Sodium,Porcine 5,000 UNIT/ML VIAL 5000 UNIT SUBCUT (08:51)
[2024-10-06] MEDS: Aspirin Enteric Coated 81 MG TABLET.DR PO (08:51)
--- NOTE | 2024-10-06 08:58 | PC.NURSE ---
patient unable to do MRI form, attempted to call family x2 with no answer
--- NOTE | 2024-10-06 09:32 | PHA.MEDREC ---
Addendum entered by Latisha Ang RPh 10/06/24 09:54: reviewed Original Note: Pharmacy Consult ? Medication Reconciliation Pharmacy has completed the medication reconciliation. Spoke to patient to confirm med list. Patient was able to tell me what medications she takes. patient last took her medication 10/05/24.
--- NOTE | 2024-10-06 09:35 | P.PNIM_ITS ---
Subjective Subjective Date of Service: 10/06/24 Interval History: feels back to normal Physical Exam 2 Vital Signs: Vital Signs: Last Vital Signs Temp 98.9 F 10/06/24 07:22 Pulse 85 10/06/24 07:22 Resp 20 10/06/24 07:22 BP 148/67 H 10/06/24 07:22 Pulse Ox 98 10/06/24 07:22 O2 Del Method Room Air 10/06/24 07:22 BMI result Body Mass Index 15.8 General: AO X 3, no acute distress, frail appearing Resp: CTA bilateral, no accessory muscles used CVS: S1,S2,RRR GI: soft, non tender, non distended Neuro: motor grossly intact, alert Objective Data Active Medications Acetaminophen (Acetaminophen 325 Mg Tablet) 975 mg PO Q6H PRN PRN Reason: Pain, Mild (Pain Scale 1-3), fever or headache Aspirin (Aspirin Enteric Coated 81 Mg Tablet.Dr) 81 mg PO DAILY [facility] Last Admin: 10/06/24 08:51 Dose: 81 mg Documented By: KAYLEN Atorvastatin Calcium (Atorvastatin Calcium 80 Mg Tablet) 80 mg PO BEDTIME [facility] Calcium Carbonate (Calcium Carbonate 750 Mg Tab.Chew) 750 mg PO Q4H PRN PRN Reason: Heartburn Heparin Sodium (Porcine) (Heparin Sodium,Porcine 5,000 Unit/Ml Vial) 5,000 unit SUBCUT Q12H [facility] Last Admin: 10/06/24 08:51 Dose: 5,000 unit Documented By: KAYLEN Magnesium Hydroxide (Milk Of Magnesia 30 Ml Oral.Susp) 30 ml PO DAILY PRN PRN Reason: Constipation Melatonin (Melatonin 3 Mg Tablet) 6 mg PO BEDTIME PRN PRN Reason: Insomnia Sodium Chloride (0.9 % Sodium Chloride Flush 3 Ml Syringe) 3 ml IVFLUSH QSHIFT [facility] Last Admin: 10/06/24 07:28 Dose: Not Given Documented By: KAYLEN Non-Admin Reason: See Note Labs 10/06/24 05:40 10/06/24 05:40 Labs: Laboratory Results - last 24 hr 10/05/24 10/05/24 10/05/24 17:29 17:31 18:05 MCV 96.4 MCH 31.6 MCHC 32.8 RDW 13.1 Plt Count 235 MPV 11.0 Immature Gran % (Auto) 0.3 Neut % (Auto) 70.1 Lymph % (Auto) 18.3 L [place] % (Auto) 9.2 Eos % (Auto) 1.6 Baso % (Auto) 0.5 Lymph # (Auto) 1.7 [place] # (Auto) 0.9 Eos # (Auto) 0.2 Baso # (Auto) 0.1 Abs Immat Gran (auto) 0.03 Absolute Neuts (auto) 6.4 Absolute Nucleated RBC 0.000 Nucleated RBC % (auto) 0.0 PT 11.3 Whole Blood PT 12.8 INR 1.0 Whole Blood INR 1.1 APTT 28.2 Anion Gap 15 Estim Creat Clear Calc 11.9 Estimated GFR 24 POC Glucose 161 H Random Glucose 128 H Calcium 9.4 Troponin I High Sens 15.0 D Triglycerides 75 Cholesterol 148 LDL Cholesterol, Calc 73 HDL Cholesterol 60 Urine Color Urine Appearance Urine pH Ur Specific [place] Urine Protein Urine Glucose (UA) Urine Ketones Urine Blood Urine Nitrite Ur Leukocyte Esterase 10/05/24 10/06/24 20:12 05:40 MCV 97.0 MCH 31.6 MCHC 32.6 RDW 13.0 Plt Count 231 MPV 11.0 Immature Gran % (Auto) Neut % (Auto) Lymph % (Auto) [place] % (Auto) Eos % (Auto) Baso % (Auto) Lymph # (Auto) [place] # (Auto) Eos # (Auto) Baso # (Auto) Abs Immat Gran (auto) Absolute Neuts (auto) Absolute Nucleated RBC 0.000 Nucleated RBC % (auto) 0.0 PT Whole Blood PT INR Whole Blood INR APTT Anion Gap 14 Estim Creat Clear Calc 10.8 Estimated GFR 22 POC Glucose Random Glucose 99 Calcium 9.4 Troponin I High Sens Triglycerides 64 Cholesterol 144 LDL Cholesterol, Calc 71 HDL Cholesterol 61 Urine Color Yellow Urine Appearance Clear Urine pH 5.5 Ur Specific [place] 1.015 Urine Protein Negative Urine Glucose (UA) Negative Urine Ketones Negative Urine Blood Negative Urine Nitrite Negative Ur Leukocyte Esterase Negative Assessment and Plan (1) Slurred speech: Status: Acute Plan 84F PMH CKD 4, brain aneurysm, hypertension, hyperlipidemia presented with slurred speech. Slurred speech Rule out TIA/CVA Check MRI, neuro eval Continue aspirin statin Hypertension Permissive hypertension for now Moderate protein calorie malnutrition Encourage p.o. intake DVT prophylaxis with heparin Full code reason for continued hospitalization: Awaiting neuro workup Quality Stroke Does the patient have a stroke diagnosis?: No VTE Prior VTE?: No VTE Risk Level:: Medical - moderate - high VTE Device Contraindication: Treatment Not Indicated VTE Drug Contraindication: N/A - Med Ordered
--- NOTE | 2024-10-06 09:59 | PC.NURSE ---
mri form completed with patients daughter wisam over the phone
[2024-10-06] MEDS: LORazepam 2 MG/ML VIAL 1 MG IVPUSH (11:22)
--- NOTE | 2024-10-06 12:04 | P.CNNE_ITS ---
History of Present Illness Data of Consult Service Date: 10/06/24 Primary Care Provider: Markus Hopper MD HPI Reason for consult: Encephalopathy 84 years old woman who was brought to hospital with change in mental status. Apparently her daughter was communicating with her and found problem with her speech. When she arrived, mother was noted to be confused and talking about things that did not make sense like she was repeatedly saying that water was coming out of her phone. There was no sign of any trauma. She had not taken any new medicine and did not drink alcohol or any other drugs. Review of Systems 2 Review of Systems: No recent cold or flu-like illness PMFSH Past Medical History Medical History (Updated 10/06/24 @ 12:07 by Conrad Reyna MD) Chronic anemia CKD (chronic kidney disease) stage 4, GFR 15-29 ml/min GERD (gastroesophageal reflux disease) Hyperlipidemia HTN (hypertension) Social History Social History (Updated 08/21/24 @ 13:09 by Leyla Strickland DO) Patient Tobacco Use Status: Former Tobacco user Smoked in Last 30 Days: No Use of substances other than those prescribed or required for medical reasons: No Advance Directives: Yes Advance Directives Information Provided: No Advance Directives on File: No Advance Directives Date on File: 10/06/24 Do you have a plan to hurt others: No Plan Nutrition Risks: No Nutritional Risk Meds Allergies Allergy/AdvReac Type Severity Reaction Status Date / Time nut - unspecified [NUTS] Allergy Severe ANAPHYLAXIS Verified 10/05/24 17:41 nitrofurantoin Allergy Unknown ITCHING Verified 10/05/24 17:41 [From MACROBID] Active Medications: Current Medications Acetaminophen (Acetaminophen 325 Mg Tablet) 975 mg PO Q6H PRN PRN Reason: Pain, Mild (Pain Scale 1-3), fever or headache Aspirin (Aspirin Enteric Coated 81 Mg Tablet.) 81 mg PO DAILY [facility] Last Admin: 10/06/24 08:51 Dose: 81 mg Atorvastatin Calcium (Atorvastatin Calcium 80 Mg Tablet) 80 mg PO BEDTIME [facility] Calcium Carbonate (Calcium Carbonate 750 Mg Tab.Chew) 750 mg PO Q4H PRN PRN Reason: Heartburn Heparin Sodium (Porcine) (Heparin Sodium,Porcine 5,000 Unit/Ml Vial) 5,000 unit SUBCUT Q12H [facility] Last Admin: 10/06/24 08:51 Dose: 5,000 unit Lorazepam (Lorazepam 2 Mg/Ml Vial) 1 mg IVPUSH ONCE PRN PRN Reason: mri Last Admin: 10/06/24 11:22 Dose: 1 mg Magnesium Hydroxide (Milk Of Magnesia 30 Ml Oral.Susp) 30 ml PO DAILY PRN PRN Reason: Constipation Melatonin (Melatonin 3 Mg Tablet) 6 mg PO BEDTIME PRN PRN Reason: Insomnia Sodium Chloride (0.9 % Sodium Chloride Flush 3 Ml Syringe) 3 ml IVFLUSH QSHIFT [facility] Last Admin: 10/06/24 07:28 Dose: Not Given Home Medications ?Medication ?Instructions ?Recorded ?Confirmed ?Last Taken ?Type amlodipine 5 mg tablet 5 mg PO DAILY 08/22/24 10/06/24 10/05/24 History atorvastatin 80 mg tablet 80 mg PO DAILY 08/22/24 10/06/24 10/05/24 History losartan 100 mg tablet 100 mg PO DAILY 08/22/24 10/06/24 10/05/24 History metoprolol tartrate 50 mg tablet 50 mg PO BID 08/22/24 10/06/24 10/05/24 History famotidine 20 mg tablet 20 mg PO BID PRN heartburn 10/06/24 10/06/24 Unknown History fluticasone propionate 50 1 spray intranasal DAILY 10/06/24 10/06/24 10/05/24 History mcg/actuation nasal spray,suspension Physical Exam 2 Vital Signs: Vital Signs: Last Vital Signs Temp 98.2 F 10/06/24 11:11 Pulse 78 10/06/24 11:11 Resp 17 10/06/24 11:11 BP 142/61 H 10/06/24 11:11 Pulse Ox 98 10/06/24 11:11 O2 Del Method Room Air 10/06/24 11:11 BMI result Body Mass Index 16.0 Neuro: Other: She is alert and awake with normal spontaneity and fluency of speech. She is following simple commands. Vision was limited. Face was symmetrical. There was no obvious focal arm or leg weakness. Results Labs 10/06/24 05:40 10/06/24 05:40 Labs: Short CBC 10/05/24 10/06/24 Range/Units 18:05 05:40 WBC 9.2 7.4 (4.8-10.8) X10*3/uL Hgb 10.5 L 10.6 L (12.0-16.0) g/dl Hct 32.0 L 32.5 L (37.0-47.0) % Plt Count 235 231 (160-400) X10*3/uL BMP 10/05/24 10/06/24 18:05 05:40 Sodium 143 143 Potassium 4.9 5.2 H Chloride 110 H 111 H Carbon Dioxide 23 23 BUN 38 H 44 H Creatinine 1.96 H 2.17 H Calcium 9.4 9.4 Urine 10/05/24 Range/Units 20:12 Urine Color Yellow Urine Appearance Clear Urine pH 5.5 (5.0-9.0) Ur Specific [place] 1.015 (1.005-1.025) Urine Protein Negative (Neg-Trace) mg/dL Urine Glucose (UA) Negative (Negative) mg/dL MRI of brain did not reveal any acute lesion. Moderate chronic microvascular ischemic changes were noted. Assessment and Plan (1) Altered mental status: Qualifiers: Altered mental status type: transient alteration of awareness Qualified Code(s): R40.4 - Transient alteration of awareness Status: Acute 84 years old woman with transient encephalopathy. MRI did not reveal any acute lesion. Seizure disorder was the probable cause. I recommend an EEG. Procedures Date of Service Date of Service: 10/06/24
--- NOTE | 2024-10-06 16:07 | MHC.CM.PN ---
Addendum entered by Lola Stein 10/06/24 16:24: COPY OF HCP FOUND IN [facility], NOW ON CHART Addendum entered by Lola Stein 10/06/24 16:21: PTS DAUGHTER REPORTS THEY HAVE COMPLETED HCP'S HERE MORE THAN ONCE IN THE PAST, CM UNABLE TO LOCATE ON ON FILE Original Note: PATRICIO MET WITH PTS DAUGHTER, LUCIANA, AT BEDSIDE SHE REPORTS THE PT LIVES ALONE BUT HAS BEEN INCREASINGLY CONFUSED SHE USES A ROLLATOR AT [facility], HOWEVER THEY ARE WAITING FOR PCP TO ORDER A NEW ONE COPY OF HCP REQUESTED PCP: TESHA SHIN OBSERVATION NOTICE DELIVERED DCP TBD: FAMILY DOES NOT BELIEVE PT IS SAFE AT HOME IN HER CURRENT CONDITION REFERRAL MADE TO [facility] TO DETERMINE IF SHE IS ELIGIBLE FOR MH FOR HOME SERVICES/SNF PLACEMENT [facility] INVOLVED AND PROVIDING [facility] ONLY DCP PENDING FURTHER WORK UP / RECOVERY
[2024-10-06] MEDS: Haloperidol Lactate 5 MG/ML VIAL 2.5 MG IM (20:17)
[2024-10-07 03:11] VITALS: BP 132/59; PULSE 98; RESP 14; TEMP 36.6; O2SAT 97
--- NOTE | 2024-10-07 07:00 | EEG_ITS ---
FINDINGS: The waking background activity consists of a moderate voltage, diffuse 6 hertz theta. Photic stimulation is without activation. Hyperventilation was omitted. No sleep stages are identified. IMPRESSION: This is an abnormal EEG due to diffuse background slowing consistent with a diffuse encephalopathic process. MD ELISEO Ruiz/COMPAL / [id number]
[2024-10-07 08:00] VITALS: BP 121/60; PULSE 106; RESP 16; TEMP 36.6; O2SAT 94
--- NOTE | 2024-10-07 09:12 | P.DS_ITS ---
DS: Providers Provider Date of Service: 10/07/24 Date of admission: 10/05/24 19:26 Date of discharge: 10/07/24 Primary care physician: Markus Hopper MD Consults: 10/05/24 19:30 Consult to Neurology Routine Consulting Provider: Conrad Reyna Reason for consultation: Slurred speech Has provider been notified: No 10/07/24 02:17 Consult to Wound Care Routine Reason for consultation: coccyx, redness with skin starting to split. DS: Diagnosis Discharge Diagnosis (1) Altered mental status: Status: Acute DS: Summary Hospital Course Hospital Course: from initial hpi: Concha Garcia is 84 years old woman with past medical history significant for brain aneurysm (no requiring interventions), hypertension and hyperlipidemia was brought to the emergency department via EMS after she was noted to have slurred speech around 4 pm (today). One of her daughters were talking with her over the phone and noticed the patient had incomprehensible speech. Daughter went to patient's house to check on her and noted that she was also very confused and was unable to walk well. Patient's symptoms resolved upon arrival to the ED. Focal weakness or facial droop was not reported. Patient did not report any pain did not complain of any acute cardiopulmonary or gastrointestinal symptoms. Also, she did not report any headache or dizziness. The patient takes a baby aspirin daily and statin. There is no history of tobacco smoking. In the ED, she was found to have stable vital signs. Last blood pressure is 130/71. Blood workup showed no leukocytosis, hemoglobin is at baseline and platelets are normal. There are no significant electrolyte imbalances. BUN is 38 and creatinine is 1.96 (around baseline). Troponin is 15. LFTs are normal. Head CT scan without contrast showed no acute intracranial hemorrhage or infarction. Head and neck CTA was not performed due to patient's current renal function. ECG showed normal sinus rhythm, heart rate 94 beats per minute and no acute ischemic changes. ED tx: none hospital course: Patient was observed for slurred speech. MRI ruled out TIA, was seen by Neurology who recommended EEG to rule out seizure, this was done and report should be followed up outpatient. Was seen by physical therapy recommended short term rehab to which she will be discharged. For hypertension her meds were held to allow for permissive hypertension while ruling out CVA. For moderate protein calorie malnutrition p.o. intake was encouraged. Time Attestation Discharge Coordination Time (in mins): 35 Quality: Safe Use of Opioids Does Pt have an Active Cancer Diagnosis on the Problem List?: No Quality: Stroke Does the patient have a stroke diagnosis?: No Physical Exam Vital Signs: Vital Signs: Last Vital Signs Temp 97.9 F 10/07/24 08:00 Pulse 106 H 10/07/24 08:00 Resp 16 10/07/24 08:00 BP 121/60 10/07/24 08:00 Pulse Ox 94 10/07/24 08:00 O2 Del Method Room Air 10/07/24 08:00 BMI result Body Mass Index 16.0 General: AO X 3, no acute distress, frail appearing Resp: CTA bilateral, no accessory muscles used CVS: S1,S2,RRR GI: soft, non tender, non distended Neuro: motor grossly intact, alert Psych: appropriate affect, poor insight Neuro: Other: She is alert and awake with normal spontaneity and fluency of speech. She is following simple commands. Vision was limited. Face was symmetrical. There was no obvious focal arm or leg weakness. Discharge Plan Discharge Anticipated Discharge Date/Time: 10/07/24 09:10 Discharge Diagnosis: slurred speech, ?seizure [facility] - [facility] Week Conrad Reyna MD [Physician] - 1 Week Markus Hopper MD [Primary Care Provider] - 1 Week Discharge Medications: Continued atorvastatin 80 mg tablet 80 mg PO DAILY amlodipine 5 mg tablet 5 mg PO DAILY metoprolol tartrate 50 mg tablet 50 mg PO BID losartan 100 mg tablet 100 mg PO DAILY famotidine 20 mg tablet 20 mg PO BID PRN (Reason: heartburn) fluticasone propionate 50 mcg/actuation spray,suspension 1 spray intranasal DAILY Diet: Advance to usual diet Activity on Discharge: As tolerated Stand Alone Forms: Patient Portal Discharge page Print Language: Niuean Other Ambulatory Orders: EEG electroencephalogram (Routine) Timeframe: 1 Day Facility: [facility] - Location: Radiology Ordered By: Nilson Hammer Care Plan Goals: diagnose cause of ams Health Concerns: episode of ams Plan of Treatment: outpatient EEG, follow up neuro Assessment: see above
--- NOTE | 2024-10-07 09:14 | W.MHC.F2F ---
Service Date Service Date: 10/07/24 Encounter Date of encounter: 10/07/24 Reasons for Services Signs and symptoms assessed: frail appearing, difficulty ambulating Reason for correction: medication management, medication treatment and teach disease management Reason for physical therapy: home safety and mobility and therapeutic exercises Homebound: Leaving the home is medically contraindicated at this time without the asist of a device and/or another person due th the listed conditions above and below. Reason homebound: unsteady gait / fall risk Certification: Based on the above findings, I certify that this patient is confined to the home and needs intermittent correction care, physical therapy and/or speech therapy, or continues to need occupational therapy. The patient is under my care, and I have initiated the establishment of the plan of care. The patient will be followed by a physician who will periodically review the plan of care. Time Spent With Patient Time: Total time managing care of this patient today ____ minutes.
[2024-10-07] MEDS: Aspirin Enteric Coated 81 MG TABLET.DR PO (09:15)
[2024-10-07] MEDS: Heparin Sodium,Porcine 5,000 UNIT/ML VIAL 5000 UNIT SUBCUT ×2 (09:15→19:58)
[2024-10-07] MEDS: 0.9 % Sodium Chloride Flush 3 ML SYRINGE IVFLUSH ×3 (09:15→19:56)
[2024-10-07] MEDS: Milk of Magnesia 30 ML ORAL.SUSP PO (09:23)
[2024-10-07] MEDS: Ibuprofen 400 MG TABLET PO (09:23)
--- NOTE | 2024-10-07 09:40 | MHC.CM.PN ---
Patient has been medically cleared for dc to home today, with services. A referral has been made to [facility], who has been made aware of today's dc.
[2024-10-07 11:26] VITALS: BP 142/67; PULSE 105; RESP 18; TEMP 36.4; O2SAT 96
--- NOTE | 2024-10-07 13:01 | MHC.SP.ADU ---
Referring provider: Jm Virk Reason for Referral: Speech/Language Cognition Eval Type of Treatment: 16883 Standardized Cognitive Performance Testing, per hour Date of Plan of Treatment: 10/07/24 Onset of Symptoms/Illness: 10/05/24 Date Treatment Started: 10/07/24 Medical Diagnosis: Transient encephalopathy Primary Speech Language Diagnosis: R41.841 Cognitive communication disorder Secondary Speech Language Diagnosis: History 84 y/o woman PMH significant for brain aneurysm (no requiring interventions), HTN, HLD brought to ED via EMS d/t episode of slurred speech, confusion and difficulty ambulating. Symptoms resolved upon arrival to ED. MD notes: Focal weakness or facial droop was not reported. Patient did not report any pain did not complain of any acute cardiopulmonary or gastrointestinal symptoms. Also, she did not report any headache or dizziness. The patient takes a baby aspirin daily and statin. There is no history of tobacco smoking. In the ED, she was found to have stable vital signs. Last blood pressure is 130/71. Blood workup showed no leukocytosis, hemoglobin is at baseline and platelets are normal. There are no significant electrolyte imbalances. Head CT scan without contrast showed no acute intracranial hemorrhage or infarction. ECG showed normal sinus rhythm, heart rate 94 beats per minute and no acute ischemic changes. Medical History: Other: PMH significant for brain aneurysm (no requiring interventions), HTN, HLD Recent Hospitalizations: No Respiratory Needs: Room Air Patient Orientation: Alert & Oriented x 4 Social History: Current Living Situation: pt lives alone in independent 55+ community Assistive Devices in use: Comment: Past Speech Language Therapy: none reported Other Therapies Seen in Current Calendar Year: none reported Other: Swallowing History: Dysphagia Specific: Within Functional Limits Comments: Pre-eval Risk for Aspiration: Reduced Cognition Pre-evaluation Dietary Consistencies: Pre-eval Liquid Intake: Pre-eval Medication Intake: Pt passed SN bedside swallow screen Reported Speech, Language, Cognition difficulties: Understanding Memory Problem Solving Comments: Pt alert and oriented x4, youngest daughter at bedside. During orientation questions, pt responded immediately with efficiency: she knew her name, current month, current year, where she lived, where she is right now, and why she is here. Pt unable to identify day of the week, and experienced episode of anomia in naming her daughter. With semantic cue (first letter of daughter's name), pt stated Gabrielle! Pt able to recall 1/3 words in STM task. Pt identified correct numerical value for simple addition (related to shopping) but was unable to subtract (in determining change). Pt phrase length, use of grammatical constructions and prosodic features of connected speech WFL. Auditory comprehension decreased d/t mildly delayed processing speed. Pt aware she needed repetitions when she missed auditory information and asked for clarification. Pt exhibited excellent attention in structured and unstructured communication tasks. Pt used sarcasm and humor appropriately, with good association of self to others. Education provided to pt daughter on recommendations for intermittent supervision, specifically in situations where pt may experience difficulties secondary to mild cognitive deficits (i.e. getting change at the store, understanding complex/new information). Recc for direct intervention discussed. MD notified. Pt and dtr in agreement with recc POC. No further visits indicated inpatient. Quality of Life: Pt resides in 55+ independent community. Family discussing options with hospital team as pt may require more supervision d/t physical and cognitive challenges. [employer] intervention indicated at time of d/c d/t nature of cognitive/communication difficulties. Patient Stated Goal of Speech-Language Therapy: Assessment Speech Production: Aphasic: Fluent Clinical Impression: Intact Observations: Informal Voice Assessment: Voice Loudness: Normal Voice Nasal Resonance: Normal Voice Oral Resonance: Normal Voice Phonatory-based Quality: Normal Voice Pitch: Normal Voice Other Observations: Clinical Impression: Intact Clinicial Observations: Tests of Speech & Lang Adults: BDAE Clinical Impression: Impaired Observations: conversational and expository speech WFL auditory comprehension mildly to moderately impaired, characterized by slowed processing speed oral expression mildly to moderately impaired, characterized by anomia syntax, morphology, phonology and semantics WFL Tests of Cognition: Clinical Impression: Observations: Mini Mental Status Exam: Mild deficit Augmentative and Alternative Communication: Did Not Test Observations: Impressions and Recommendations Summary: Impact on Daily Function/Activity Limitations: Daily Activities: Moderate Interpersonal Interactions: Education: Employment: Community: Moderate Prognosis for Improvement: Good Comment: Recommendation for Speech Therapy: Speech Therapy through [facility] Speech Therapy through Rehab Facility Recommended Referrals to be Discussed with Primary Care Provider: Patient Education: Yes Completed: Yes, education recc to be ongoing as needed Patient/Caregiver Education: Described Results of Evaluation Family/Caregivers expressed understanding of results Patient requires further education on strategies Comments/Barriers to Learning: Gang Supervisor Pipe Lines Clinican/Clinical Fellow: No Supervisory Statement: N/A Speech Language Pathologist: Candace Pandya M.S., [facility]
--- NOTE | 2024-10-07 13:33 | MHC.CM.PN ---
Per MD, family is not comfortable with Patient returning home. PT did recommend STR VS 22/05; CM will begin a SNF bed search for STR.
[2024-10-07 13:53] VITALS: BMI 16.0
--- NOTE | 2024-10-07 14:00 | MHC.CLN ---
PT IS MODERATELY MALNOURISHED PT WITH MILDLY DEPLETED SUBCUTANEOUS FAT AND MUSCLE MASS WITH BMI 16 AND POOR PO INTAKE CARDIAC DIET RECOMMEND ADDING ENSURE BID TO INCREASE KCALS SUPP TO PROVIDE 700KCALS, 40G PROTEIN MONITOR PO INTAKE AND ENCOURAGE SUPPLEMENT SEE ALSO FULL CLINICAL NUTRITION ASSESSMENT
--- NOTE | 2024-10-07 14:02 | P.PNIM_ITS ---
Subjective Subjective Date of Service: 10/07/24 Interval History: confused Physical Exam 2 Vital Signs: Vital Signs: Last Vital Signs Temp 97.6 F 10/07/24 11:26 Pulse 105 H 10/07/24 11:26 Resp 18 10/07/24 11:26 BP 142/67 H 10/07/24 11:26 Pulse Ox 96 10/07/24 11:26 O2 Del Method Room Air 10/07/24 11:26 BMI result Body Mass Index 16.0 Neuro: Other: She is alert and awake with normal spontaneity and fluency of speech. She is following simple commands. Vision was limited. Face was symmetrical. There was no obvious focal arm or leg weakness. Objective Data Active Medications Acetaminophen (Acetaminophen 325 Mg Tablet) 975 mg PO Q6H PRN PRN Reason: Pain, Mild (Pain Scale 1-3), fever or headache Aspirin (Aspirin Enteric Coated 81 Mg Tablet.) 81 mg PO DAILY [facility] Last Admin: 10/07/24 09:15 Dose: 81 mg Documented By: SAGE Atorvastatin Calcium (Atorvastatin Calcium 80 Mg Tablet) 80 mg PO BEDTIME [facility] Last Admin: 10/06/24 20:25 Dose: Not Given Documented By: HARMONY Non-Admin Reason: Patient Refused Calcium Carbonate (Calcium Carbonate 750 Mg Tab.Chew) 750 mg PO Q4H PRN PRN Reason: Heartburn Heparin Sodium (Porcine) (Heparin Sodium,Porcine 5,000 Unit/Ml Vial) 5,000 unit SUBCUT Q12H [facility] Last Admin: 10/07/24 09:15 Dose: 5,000 unit Documented By: SAGE Lorazepam (Lorazepam 2 Mg/Ml Vial) 1 mg IVPUSH ONCE PRN PRN Reason: mri Last Admin: 10/06/24 11:22 Dose: 1 mg Documented By: AKRAN Magnesium Hydroxide (Milk Of Magnesia 30 Ml Oral.Susp) 30 ml PO DAILY PRN PRN Reason: Constipation Last Admin: 10/07/24 09:23 Dose: 30 ml Documented By: SAGE Melatonin (Melatonin 3 Mg Tablet) 6 mg PO BEDTIME PRN PRN Reason: Insomnia Sodium Chloride (0.9 % Sodium Chloride Flush 3 Ml Syringe) 3 ml IVFLUSH QSHIFT [facility] Last Admin: 10/07/24 09:15 Dose: 3 ml Documented By: SAGE Labs 10/06/24 05:40 10/06/24 05:40 Assessment and Plan (1) Slurred speech: Status: Acute Plan 84F PMH CKD 4, brain aneurysm, hypertension, hyperlipidemia presented with slurred speech. Slurred speech mri negative neuro recommending eeg likely unspecified dementia with acute delerium check b12, folate, tsh monitor Hypertension amlodipine Moderate protein calorie malnutrition Encourage p.o. intake, ensure DVT prophylaxis with heparin Full code reason for continued hospitalization: delerium Quality Stroke Does the patient have a stroke diagnosis?: No VTE Prior VTE?: No VTE Risk Level:: Medical - moderate - high VTE Device Contraindication: Treatment Not Indicated VTE Drug Contraindication: N/A - Med Ordered
--- NOTE | 2024-10-07 14:04 | HO.WOUND ---
Wound Consult: Initial 84yr old?female admitted to [facility] on 10/05/24 - See progress notes and H&P for detailed history.? Wound consult placed for Sacrum.? Patient agreeable to assessment and photo documentation.? Patient denies pain and tenderness to the area. Sacrum / Coccyx Etiology: Stage 1 Pressure Injury ??Present on Admission Measurements: 3cm x 2cm x 0cm Wound Bed: pink nonblanchable intact tissue Drainage / Odor: none Edges: ? defined Melissa wound: intact ? No Induration, Fluctuance or Warmth noted Pain: denies Goals of Treatment: ? Foam dressing and off load pressure with Q2hr turns Recommendations: 1. Turn and Reposition every 2 hours and as needed for patient comfort.? Use pillows or wedges to support off loading positions. 2. Off Load all bony prominences with use of pillows and heel boots if needed.? Apply Preventative foams where needed. ? 3. Monitor for incontinence and moisture control, use barrier creams when needed for prevention and treatment. 4. Provide adequate and supplemental nutrition.? 5. Order low air loss mattress. 6. When applicable maintain blood glucose levels per Providers order. 7. Sacrum / Coccyx - Routine cleansing. Apply sacral foam dressing peel back and assess skin, change every 3 days and PRN. Re-consult wound care Nurse for wound deterioration or wound changes.
--- NOTE | 2024-10-07 14:13 | MHC.CM.PN ---
Patient has been changed to INPATIENT. CM attempted to call Daughter/HCP/Rbecca @ [phone], but reached Daughter/Jeanne instead; IMM was addressed with Jeanne(original to be mailed certified letter to Jeanne and a copy has been placed on the chart).
[2024-10-07 16:00] VITALS: BP 124/63; PULSE 103; RESP 18; TEMP 36.5; O2SAT 96
[2024-10-07 19:26] VITALS: BP 126/65; PULSE 107; RESP 16; TEMP 37.1; O2SAT 96
[2024-10-07] MEDS: Metoprolol Tartrate 50 MG TABLET PO (19:52)
[2024-10-07] MEDS: Atorvastatin Calcium 80 MG TABLET PO (19:54)
[2024-10-07] MEDS: Acetaminophen 325 MG TABLET 975 MG PO (19:54)
[2024-10-07 23:49] VITALS: BP 119/57; PULSE 73; RESP 16; TEMP 37; O2SAT 96
[2024-10-08 02:55] VITALS: BP 130/60; PULSE 63; RESP 16; TEMP 36.5; O2SAT 97
[2024-10-08 07:25] VITALS: BP 146/64; PULSE 73; RESP 18; TEMP 37.1; O2SAT 97
[2024-10-08 08:10] LABS: Hematocrit 30.3 % (37.0-47.0); Hemoglobin 10.1 g/dl (12.0-16.0); Mean Corpuscular HGB Conc 33.3 g/dl (31.0-35.0); Mean Corpuscular Hemoglobin 32.4 pg (27.0-33.0); Mean Corpuscular Volume 97.1 fL (80.0-98.0); Mean Platelet Volume 11.4 fL (9.4-12.3); Platelet Count 228 X10*3/uL (160-400); Red Blood Count 3.12 X10*6/uL (4.20-5.50); Red Cell Distribution Width 12.9 % (11.0-16.0); White Blood Count 6.1 X10*3/uL (4.8-10.8)
[2024-10-08] MEDS: Heparin Sodium,Porcine 5,000 UNIT/ML VIAL 5000 UNIT SUBCUT ×2 (08:44→20:05)
[2024-10-08] MEDS: Metoprolol Tartrate 50 MG TABLET PO ×2 (08:45→20:04)
[2024-10-08] MEDS: Losartan Potassium 50 MG TABLET 100 MG PO (08:45)
[2024-10-08] MEDS: Aspirin Enteric Coated 81 MG TABLET.DR PO (08:45)
[2024-10-08] MEDS: amLODIPine Besylate 5 MG TABLET PO (08:45)
[2024-10-08] MEDS: 0.9 % Sodium Chloride Flush 3 ML SYRINGE IVFLUSH ×3 (08:45→23:57)
[2024-10-08 08:50] LABS: Anion Gap 14 (12-20); Blood Urea Nitrogen 44 mg/dL (9-16); Calcium 9.1 mg/dL (8.4-10.2); Carbon Dioxide 21 mmol/L (22-29); Chloride 110 mmol/L (96-108); Creatinine Clr Calc Pharmacy 12.8; Estimated Glomerular Filt Rate 26; Glucose Random 95 mg/dL (60-115); Potassium 4.7 mmol/L (3.3-5.1); Sodium 140 mmol/L (135-145)
--- NOTE | 2024-10-08 08:51 | P.PNIM_ITS ---
Subjective Subjective Date of Service: 10/08/24 Interval History: more oriented today, no complaints Physical Exam 2 Vital Signs: Vital Signs: Last Vital Signs Temp 98.8 F 10/08/24 07:25 Pulse 73 10/08/24 07:25 Resp 18 10/08/24 07:25 BP 146/64 H 10/08/24 07:25 Pulse Ox 97 10/08/24 07:25 O2 Del Method Room Air 10/08/24 07:25 BMI result Body Mass Index 16.0 General: AO X 3, no acute distress, frail appearing Resp: CTA bilateral, no accessory muscles used CVS: S1,S2,RRR GI: soft, non tender, non distended Neuro: motor grossly intact, alert Psych: appropriate affect, poor insight Objective Data Active Medications Acetaminophen (Acetaminophen 325 Mg Tablet) 975 mg PO Q6H PRN PRN Reason: Pain, Mild (Pain Scale 1-3), fever or headache Last Admin: 10/07/24 19:54 Dose: 650 mg Documented By: HARMONY Comments: pt. requesting on two tablets. Amlodipine Besylate (Amlodipine Besylate 5 Mg Tablet) 5 mg PO DAILY [facility]; Protocol Last Admin: 10/08/24 08:45 Dose: 5 mg Documented By: SAGE Aspirin (Aspirin Enteric Coated 81 Mg Tablet.) 81 mg PO DAILY [facility] Last Admin: 10/08/24 08:45 Dose: 81 mg Documented By: SAGE Atorvastatin Calcium (Atorvastatin Calcium 80 Mg Tablet) 80 mg PO BEDTIME [facility] Last Admin: 10/07/24 19:54 Dose: 80 mg Documented By: HARMONY Calcium Carbonate (Calcium Carbonate 750 Mg Tab.Chew) 750 mg PO Q4H PRN PRN Reason: Heartburn Heparin Sodium (Porcine) (Heparin Sodium,Porcine 5,000 Unit/Ml Vial) 5,000 unit SUBCUT Q12H [facility] Last Admin: 10/08/24 08:44 Dose: 5,000 unit Documented By: SAGE Lorazepam (Lorazepam 2 Mg/Ml Vial) 1 mg IVPUSH ONCE PRN PRN Reason: mri Last Admin: 10/06/24 11:22 Dose: 1 mg Documented By: KARAN Losartan Potassium (Losartan Potassium 50 Mg Tablet) 100 mg PO DAILY [facility]; Protocol Last Admin: 12/10/24 08:45 Dose: 100 mg Documented By: SAGE Magnesium Hydroxide (Milk Of Magnesia 30 Ml Oral.Susp) 30 ml PO DAILY PRN PRN Reason: Constipation Last Admin: 10/07/24 09:23 Dose: 30 ml Documented By: SAGE Melatonin (Melatonin 3 Mg Tablet) 6 mg PO BEDTIME PRN PRN Reason: Insomnia Metoprolol Tartrate (Metoprolol Tartrate 50 Mg Tablet) 50 mg PO BID [facility]; Protocol Last Admin: 10/08/24 08:45 Dose: 50 mg Documented By: SAGE Sodium Chloride (0.9 % Sodium Chloride Flush 3 Ml Syringe) 3 ml IVFLUSH QSHIFT [facility] Last Admin: 10/08/24 08:45 Dose: 3 ml Documented By: SAGE Labs 10/08/24 07:25 10/08/24 07:25 Labs: Laboratory Results - last 24 hr 10/08/24 07:25 MCV 97.1 MCH 32.4 MCHC 33.3 RDW 12.9 Plt Count 228 MPV 11.4 Absolute Nucleated RBC 0.000 Nucleated RBC % (auto) 0.0 Anion Gap 14 Estim Creat Clear Calc 12.8 Estimated GFR 26 Random Glucose 95 Calcium 9.1 Assessment and Plan (1) Slurred speech: Status: Acute Plan 84F PMH CKD 4, brain aneurysm, hypertension, hyperlipidemia presented with slurred speech. Slurred speech mri negative neuro recommending eeg likely unspecified dementia with acute delerium check b12, folate, tsh monitor delerium improved today Hypertension amlodipine Moderate protein calorie malnutrition Encourage p.o. intake, ensure DVT prophylaxis with heparin Full code dispo - SNF preferred reason for continued hospitalization: safe dispo Quality Stroke Does the patient have a stroke diagnosis?: No VTE Prior VTE?: No VTE Risk Level:: Medical - moderate - high VTE Device Contraindication: Treatment Not Indicated VTE Drug Contraindication: N/A - Med Ordered
[2024-10-08 09:06] LABS: TSH reflex Free T4 0.96 uIU/mL (0.32-4.0)
[2024-10-08 09:20] LABS: Folate 11.6 ng/mL (> or = 4.0); Vitamin B12 638 pg/mL (200-900)
[2024-10-08 10:55] VITALS: BP 123/58; PULSE 77; RESP 18; TEMP 36.9; O2SAT 96
--- NOTE | 2024-10-08 11:40 | MHC.CM.PN ---
This CM met with the pt and her 2 daughters present at bedside to discuss discharge plan. Per pt and her daughters they would like her to go to a rehab prior to returning home. Local facilities reviewed with pt and family. Their first choice is [facility] and [facility]. They would not like her going to [facility] [place]. Referrals placed accordingly, awaiting a STR bed offer.
--- NOTE | 2024-10-08 12:52 | MHC.SL.SOA ---
Referring Provider: Jm Virk Reason for Referral: Speech/Language Cognition Eval Date of Plan of Treatment:10/07/24 Onset of Symptoms/Illness:10/05/24 Date Treatment Started:10/07/24 Medical Diagnosis:Transient encephalopathy Primary Speech Language Diagnosis:R41.841 Cognitive communication disorder Reason for Visit:57387 Individual Treatment Subjective: Pt is in her room with her Daughter's present. She is openly agreeable to participate in Cognitive Screening. Objective: Pt participate in the MoCA - Blind Form. We attempted the Basic Form, however Pt left her glasses at home. She scored a 6 out of 22. The criterion cut-off is 19. Assessment: Her score is well below and concerning for Dementia process over an above Mild Cognitive Impairment. This will help guide her disposition planning and approaches to rehabilitation at her next level of care. It should be noted that the MoCA forms are not a replacement for a full neuropsychological exam, however they have been shown to identify patient's who are at increased risk for progressive memory loss. Notes: Pt presents with mild to moderate receptive and expressive language deficits but is stimulable to compensatory techniques to promote improved processing and word retrieval. Recc direct STAFF M[employer] WAR[employer] OFFICER intervention after d/c to support pt and caregiver use of strategies in functional communication. Plan: Goal # : Pt will participate in on-going diagnostic treatment to inform treatment goals at her next level of care. Status of Goal: New Goal Seen by: Graduate/Clinical Fellow: No Supervisory Statement: f_Reg Query Last Value , MHC.AU.SIGNATUR Speech Language Pathologist: Nicholas Gaona M.A., CCC-STAFF [employer] OFFICER
[2024-10-08] MEDS: Ibuprofen 400 MG TABLET PO (15:04)
[2024-10-08 16:00] VITALS: BP 122/65; PULSE 102; RESP 18; TEMP 36.7; O2SAT 96
[2024-10-08] MEDS: Acetaminophen 325 MG TABLET 975 MG PO (16:37)
[2024-10-08 19:13] VITALS: BP 116/56; PULSE 81; RESP 18; TEMP 36.3; O2SAT 96
[2024-10-08] MEDS: Atorvastatin Calcium 80 MG TABLET PO (20:04)
[2024-10-09] VITALS (7 sets, daily range): BP systolic 94–122; BP diastolic 50–59; PULSE 63–105; RESP 14–20; TEMP 36.1–36.8; O2SAT 96–98
[2024-10-09] MEDS: Aspirin Enteric Coated 81 MG TABLET.DR PO (08:38)
[2024-10-09] MEDS: Metoprolol Tartrate 50 MG TABLET PO ×2 (08:38→21:31)
[2024-10-09] MEDS: Losartan Potassium 50 MG TABLET 100 MG PO (08:38)
[2024-10-09] MEDS: amLODIPine Besylate 5 MG TABLET PO (08:39)
[2024-10-09] MEDS: Heparin Sodium,Porcine 5,000 UNIT/ML VIAL 5000 UNIT SUBCUT ×2 (08:39→21:32)
[2024-10-09] MEDS: 0.9 % Sodium Chloride Flush 3 ML SYRINGE IVFLUSH ×3 (08:40→23:43)
--- NOTE | 2024-10-09 10:32 | MHC.CLN ---
F/U PT IS MODERATELY MALNOURISHED SEE FULL CLINICAL NUTRITION ASSESSMENT DATED 10/07/24 WT STABLE DIET RX: CARDIAC DIET-CAN LIBERALIZE TO INCREASE VARIETY AND IMPROVE PO INTAKE IF NEEDED PT RECEIVING ENSURE BID TO INCREASE KCALS SUPP PROVIDES 700KCALS, 40G PROTEIN MONITOR PO INTAKE AND ENCOURAGE SUPPLEMENT
--- NOTE | 2024-10-09 10:54 | MHC.CM.PN ---
Per ROUNDS, Patient is not yet medically cleared for dc (EGD results are pending); STR is the goal and CM will follow.
--- NOTE | 2024-10-09 12:19 | P.PNIM_ITS ---
Subjective Subjective Date of Service: 10/09/24 Interval History: Seen and evaluated this morning feels comfortable, less confused bedtime Denies any weakness or speech problem no other events Review of Systems Review of Systems: Yes all other systems are reviewed and are negative Physical Exam 2 Vital Signs: Vital Signs: Last Vital Signs Temp 97.0 F 10/09/24 04:00 Pulse 86 10/09/24 07:44 Resp 20 10/09/24 07:44 BP 121/51 L 10/09/24 07:44 Pulse Ox 98 10/09/24 07:44 O2 Del Method Room Air 10/09/24 07:44 BMI result Body Mass Index 16.0 Const: Other: Constitutional : Awake, interactive, not in distress Neck : Normal inspection, Supple Cardiovascular : RRR, no JVP, no lower extremity edema Respiratory : good bilateral air entry, no crackles, wheezes or rhonchi Gastrointestinal: soft, lax, Normal bowel sounds, Non tender Skin : Warm, Dry Neurological : Alert & oriented to time and place, No focal deficit Objective Data Active Medications Acetaminophen (Acetaminophen 325 Mg Tablet) 975 mg PO Q6H PRN PRN Reason: Pain, Mild (Pain Scale 1-3), fever or headache Last Admin: 10/08/24 16:37 Dose: 975 mg Documented By: SAGE Amlodipine Besylate (Amlodipine Besylate 5 Mg Tablet) 5 mg PO DAILY [facility]; Protocol Last Admin: 10/09/24 08:39 Dose: 5 mg Documented By: ABENA Aspirin (Aspirin Enteric Coated 81 Mg Tablet.) 81 mg PO DAILY [facility] Last Admin: 10/09/24 08:38 Dose: 81 mg Documented By: ABENA Atorvastatin Calcium (Atorvastatin Calcium 80 Mg Tablet) 80 mg PO BEDTIME [facility] Last Admin: 10/08/24 20:04 Dose: 80 mg Documented By: RIKA Calcium Carbonate (Calcium Carbonate 750 Mg Tab.Chew) 750 mg PO Q4H PRN PRN Reason: Heartburn Heparin Sodium (Porcine) (Heparin Sodium,Porcine 5,000 Unit/Ml Vial) 5,000 unit SUBCUT Q12H [facility] Last Admin: 10/09/24 08:39 Dose: 5,000 unit Documented By: ABENA Lorazepam (Lorazepam 2 Mg/Ml Vial) 1 mg IVPUSH ONCE PRN PRN Reason: mri Last Admin: 10/06/24 11:22 Dose: 1 mg Documented By: KARAN Losartan Potassium (Losartan Potassium 50 Mg Tablet) 100 mg PO DAILY [facility]; Protocol Last Admin: 10/09/24 08:38 Dose: 100 mg Documented By: ABENA Magnesium Hydroxide (Milk Of Magnesia 30 Ml Oral.Susp) 30 ml PO DAILY PRN PRN Reason: Constipation Last Admin: 10/07/24 09:23 Dose: 30 ml Documented By: SAGE Melatonin (Melatonin 3 Mg Tablet) 6 mg PO BEDTIME PRN PRN Reason: Insomnia Metoprolol Tartrate (Metoprolol Tartrate 50 Mg Tablet) 50 mg PO BID [facility]; Protocol Last Admin: 10/09/24 08:38 Dose: 50 mg Documented By: ABENA Sodium Chloride (0.9 % Sodium Chloride Flush 3 Ml Syringe) 3 ml IVFLUSH QSHIFT [facility] Last Admin: 10/09/24 08:40 Dose: 3 ml Documented By: ABENA Labs 10/08/24 07:25 10/08/24 07:25 Assessment and Plan (1) Altered mental status: Status: Acute (2) Slurred speech: Status: Acute (3) Physical deconditioning: Status: Acute Plan 84F PMH CKD 4, brain aneurysm, hypertension, hyperlipidemia presented with slurred speech. Slurred speech mri negative neuro input appreciated EEG showing general slowing but no seizure activity PT\OT eval unspecified dementia with acute delerium normal b12, folate, tsh delerium improved redirection Hypertension amlodipine Moderate protein calorie malnutrition Encourage p.o. intake, ensure DVT prophylaxis with heparin Full code dispo - SNF preferred reason for continued hospitalization: safe dispo Quality Stroke Does the patient have a stroke diagnosis?: No VTE Prior VTE?: No VTE Risk Level:: Medical - moderate - high VTE Device Contraindication: Treatment Not Indicated VTE Drug Contraindication: N/A - Med Ordered
--- NOTE | 2024-10-09 14:05 | MHC.SP.ADU ---
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 Symptoms resolved upon arrival to ED. MD notes: Focal weakness or facial droop was not reported. Patient did not report any pain did not complain of any acute cardiopulmonary or gastrointestinal symptoms. Also, she did not report any headache or dizziness. The patient takes a baby aspirin daily and statin. There is no history of tobacco smoking. In the ED, she was found to have stable vital signs. Last blood pressure is 130/71. Blood workup showed no leukocytosis, hemoglobin is at baseline and platelets are normal. There are no significant electrolyte imbalances. Head CT scan without contrast showed no acute intracranial hemorrhage or infarction. ECG showed normal sinus rhythm, heart rate 94 beats per minute and no acute ischemic changes. Medical History: Other: PMH significant for brain aneurysm (no requiring interventions), HTN, HLD Medication List: Recent Hospitalizations: No Respiratory Needs: Room Air Patient Orientation: Alert & Oriented x 4 Social History: Employment Status: Highest level of education obtained: Current Living Situation: Assistive Devices in use: Comment: Past Speech Language Therapy: Other Therapies Seen in Current Calendar Year: Other: Swallowing History: Dysphagia Specific: Within Functional Limits Comments: Pre-eval Risk for Aspiration: Reduced Cognition Pre-evaluation Dietary Consistencies: Pre-eval Liquid Intake: Pre-eval Medication Intake: Reported Speech, Language, Cognition difficulties: Understanding Memory Problem Solving At time of eval, recc for direct intervention discussed. MD notified. Pt and dtr in agreement with recc POC. MoCA administered 10/08, results falling in the mild to moderate range for dementia. SAMPLE CUTTER tx 10/09: Pt with 80% accurate with word finding, 70% accurate processing verbal information at the word level, 60% accurate in identifying/describing assoications at the phrase level, and 50% accurate in abstract reasoning at the sentence level. Pt oriented to self, situation, persons in the room and recalled some events surrounding moments prior to hospitalization. Quality of Life: Pt resides in 55+ independent community. Family discussing options with hospital team as pt may require more supervision d/t physical and cognitive challenges. SAMPLE CUTTER intervention indicated at time of d/c d/t nature of cognitive/communication difficulties. Patient Stated Goal of Speech-Language Therapy: Assessment Speech Production: Aphasic: Fluent Clinical Impression: Intact Observations: Informal Voice Assessment: Voice Loudness: Normal Voice Nasal Resonance: Normal Voice Oral Resonance: Normal Voice Phonatory-based Quality: Normal Voice Pitch: Normal Voice Other Observations: Clinical Impression: Intact Clinicial Observations: Tests of Speech & Lang Adults: BDAE Clinical Impression: Impaired Observations: conversational and expository speech WFL auditory comprehension mildly to moderately impaired, characterized by slowed processing speed oral expression mildly to moderately impaired, characterized by anomia syntax, morphology, phonology and semantics WFL Tests of Cognition: Clinical Impression: Observations: Mini Mental Status Exam: Mild deficit Augmentative and Alternative Communication: Did Not Test Observations: Impressions and Recommendations Summary: Impact on Daily Function/Activity Limitations: Daily Activities: Moderate Interpersonal Interactions: Education: Employment: Community: Moderate Prognosis for Improvement: Good Comment: Recommendation for Speech Therapy: Speech Therapy through [facility] Speech Therapy through Rehab Facility Frequency/Duration: Date Range for Service Requested: Time to Reassess: Instrument Man Goals: Short Term Goals: Goal # : Pt will participate in on-going diagnostic treatment to inform treatment goals at her next level of care. Goal Status: Goal Continued Goal# : Goal Status: Goal # : Goal Status: Goal # : Goal Status: Recommended Referrals to be Discussed with Primary Care Provider: Patient Education: Completed: Yes Patient/Caregiver Education: Described Results of Evaluation Family/Caregivers expressed understanding of results Patient requires further education on strategies Comments/Barriers to Learning: Position Description Manager Clinican/Clinical Fellow: No Supervisory Statement: N/A Speech Language Pathologist: Candace Pandya M.S., [facility]
[2024-10-09] MEDS: Atorvastatin Calcium 80 MG TABLET PO (21:32)
[2024-10-10 03:31] VITALS: BP 122/57; PULSE 70; RESP 18; TEMP 36.5; O2SAT 97
[2024-10-10 08:00] VITALS: BP 132/69; PULSE 69; RESP 20; TEMP 36.2; O2SAT 95
[2024-10-10] MEDS: Metoprolol Tartrate 50 MG TABLET PO (08:35)
[2024-10-10] MEDS: amLODIPine Besylate 5 MG TABLET PO (08:36)
[2024-10-10] MEDS: Heparin Sodium,Porcine 5,000 UNIT/ML VIAL 5000 UNIT SUBCUT (08:36)
[2024-10-10] MEDS: Aspirin Enteric Coated 81 MG TABLET.DR PO (08:36)
[2024-10-10] MEDS: Losartan Potassium 50 MG TABLET PO (08:36)
[2024-10-10] MEDS: 0.9 % Sodium Chloride Flush 3 ML SYRINGE IVFLUSH (08:37)
--- NOTE | 2024-10-10 10:28 | PM.DS ---
DS: Providers Provider Date of Service: 10/10/24 Date of admission: 10/07/24 14:02 Date of discharge: 10/10/24 Primary care physician: Markus Hopper MD Consults: 10/05/24 19:30 Consult to Neurology Routine Consulting Provider: Conrad Reyna Reason for consultation: Slurred speech Has provider been notified: No 10/07/24 02:17 Consult to Wound Care Routine Reason for consultation: coccyx, redness with skin starting to split. DS: Diagnosis Discharge Diagnosis (1) Altered mental status: Status: Acute (2) Slurred speech: Status: Acute (3) Physical deconditioning: Status: Acute (4) Dementia: Status: Acute DS: Summary Hospital Course Hospital Course: from initial hpi: Concha Garcia is 84 years old woman with past medical history significant for brain aneurysm (no requiring interventions), hypertension and hyperlipidemia was brought to the emergency department via EMS after she was noted to have slurred speech around 4 pm (today). One of her daughters were talking with her over the phone and noticed the patient had incomprehensible speech. Daughter went to patient's house to check on her and noted that she was also very confused and was unable to walk well. Patient's symptoms resolved upon arrival to the ED. Focal weakness or facial droop was not reported. Patient did not report any pain did not complain of any acute cardiopulmonary or gastrointestinal symptoms. Also, she did not report any headache or dizziness. The patient takes a baby aspirin daily and statin. There is no history of tobacco smoking. In the ED, she was found to have stable vital signs. Last blood pressure is 130/71. Blood workup showed no leukocytosis, hemoglobin is at baseline and platelets are normal. There are no significant electrolyte imbalances. BUN is 38 and creatinine is 1.96 (around baseline). Troponin is 15. LFTs are normal. Head CT scan without contrast showed no acute intracranial hemorrhage or infarction. Head and neck CTA was not performed due to patient's current renal function. ECG showed normal sinus rhythm, heart rate 94 beats per minute and no acute ischemic changes. hospital course: Patient was observed for slurred speech. MRI ruled out TIA, was seen by Neurology who recommended EEG which was done showing no evidence of seizure activity. Was seen by physical therapy recommended short term rehab to which she will be discharged. For hypertension her meds were held to allow for permissive hypertension while ruling out CVA. For moderate protein calorie malnutrition p.o. intake was encouraged. Time Attestation Discharge Coordination Time (in mins): 42 Quality: Safe Use of Opioids Does Pt have an Active Cancer Diagnosis on the Problem List?: No Quality: Stroke Does the patient have a stroke diagnosis?: No Physical Exam Vital Signs: Vital Signs: Last Vital Signs Temp 97.2 F 10/10/24 08:00 Pulse 69 10/10/24 08:00 Resp 20 10/10/24 08:00 BP 132/69 10/10/24 08:00 Pulse Ox 95 10/10/24 08:00 O2 Del Method Room Air 10/10/24 08:00 BMI result Body Mass Index 16.0 Const: Other: Constitutional : Awake, interactive, not in distress Neck : Normal inspection, Supple Cardiovascular : RRR, no JVP, no lower extremity edema Respiratory : good bilateral air entry, no crackles, wheezes or rhonchi Gastrointestinal: soft, lax, Normal bowel sounds, Non tender Skin : Warm, Dry Neurological : Alert & oriented to time and place, No focal deficit DS: Data Imaging MRI - head: Radiologist's impression: ITS Impressions Head CT 10/05/24 17:36 IMPRESSION: 1. No evidence of acute intracranial hemorrhage or edematous territorial infarction. 2. Moderate underlying microangiopathy and generalized cerebral volume loss. Electronically signed by: Calvin Santos DO 10/05/2024 05:49 PM EST RP Brain MRI 10/06/24 06:00 IMPRESSION: 1. No acute intracranial abnormalities. 2. Moderate underlying microangiopathy and generalized cerebral volume loss. Electronically signed by: Calvin Santos DO 10/06/2024 05:35 PM EST RP Discharge Plan Discharge Anticipated Discharge Date/Time: 10/10/24 10:28 Patient Disposition: Xfer SNF Discharge Diagnosis: slurred speech, ?seizure [facility]errals[facility] [Outside[facility] - 1 Week [facility] [Outside] - 1 Week Conrad Reyna MD [Physician] - 1 Week Markus Hopper MD [Primary Care Provider] - 1 Week Discharge Medications: Continued atorvastatin 80 mg tablet 80 mg PO DAILY amlodipine 5 mg tablet 5 mg PO DAILY metoprolol tartrate 50 mg tablet 50 mg PO BID losartan 100 mg tablet 100 mg PO DAILY famotidine 20 mg tablet 20 mg PO BID PRN (Reason: heartburn) fluticasone propionate 50 mcg/actuation spray,suspension 1 spray intranasal DAILY Discharge Orders: Discharge Order (Routine); Ordered 10/10/24 Ordered By: Jaycob Costello Diet: Advance to usual diet Activity on Discharge: As tolerated Stand Alone Forms: Patient Portal Discharge page Print Language: Swedish Care Plan Goals: diagnose cause of ams dementia with delerium No evidence of seizure Health Concerns: episode of ams Plan of Treatment: follow up neuro rehab Assessment: see above
--- NOTE | 2024-10-10 10:48 | MHC.CM.PN ---
Second IMM given 10/10. Pt is medically cleared for discharge to STR today. Pt and her family have accepted a STR bed offer at [facility], she will transport there via BLS/[facility].
[2024-10-10 12:00] VITALS: BP 125/58; PULSE 77; RESP 20; TEMP 36.9; O2SAT 99
== END 2024-10-10 13:50 | disposition skilled nursing facility (03) | DRG 92 ==
LOC: HO.ED 20:35 → HO.EDOVER 20:46 → HO.IMC 10-06 09:00
PROVIDERS: Internal Medicine; Admitting Provider Internal Medicine; Emergency Provider Emergency Medicine; PCP Family Medicine; Visit Provider Student in an Organized Health Care Education/Training Program
DX: R47.81 Slurred speech (principal); E44.0 Moderate protein-calorie malnutrition; N18.4 Chronic kidney disease, stage 4 (severe); Z68.1 Body mass index [BMI] 19.9 or less, adult; F05 Delirium due to known physiological condition; I12.9 Hypertensive chronic kidney disease with stage 1 through stage 4 chronic kidney disease, or unspecified chronic kidney disease; F03.90 Unspecified dementia, unspecified severity, without behavioral disturbance, psychotic disturbance, mood disturbance, and anxiety; Z87.891 Personal history of nicotine dependence; Z79.51 Long term (current) use of inhaled steroids; Z79.899 Other long term (current) drug therapy
CPT/HCPCS: 36415; 70450; 70551; 80048; 80061; 81003; 82607; 82746; 82947; 84443; 84484; 85025; 85027; 85610; 85730; 92507; 93005; 95816; 96125; 97112; 97116; 97162; 97166; 97530; 99222; 99285; J1630; J1644; J2060

== ENCOUNTER → 2024-10-05 17:37 | Outpatient (BNV) | payer MEDICARE, SELFPAY | PROVIDERS: Admitting Provider Internal Medicine; Emergency Provider Emergency Medicine; PCP Family Medicine; Visit Provider Internal Medicine Cardiovascular Disease | DX: G45.9 Transient cerebral ischemic attack, unspecified (principal) | CPT/HCPCS: 93010 ==

== ENCOUNTER → 2024-10-05 18:39 | Outpatient (BNV) | payer MEDICARE, SELFPAY | PROVIDERS: Emergency Provider Emergency Medicine; PCP Family Medicine; Visit Provider Internal Medicine | DX: R47.81 Slurred speech (principal) | CPT/HCPCS: 99222; 99232 ==

== ENCOUNTER 2024-10-05 19:26 | Outpatient (BNV) | payer MEDICARE, SELFPAY | END 2024-10-06 06:00 | PROVIDERS: Admitting Provider Internal Medicine; Emergency Provider Emergency Medicine; PCP Family Medicine; Visit Provider Internal Medicine Cardiovascular Disease | DX: G45.9 Transient cerebral ischemic attack, unspecified (principal) | CPT/HCPCS: 93010 ==

== ENCOUNTER → 2024-10-05 19:26 | Outpatient (BNV) | payer MEDICARE, SELFPAY | PROVIDERS: Admitting Provider Internal Medicine; Emergency Provider Emergency Medicine; PCP Family Medicine; Visit Provider Psychiatry & Neurology Neurology | DX: R40.4 Transient alteration of awareness (principal) | CPT/HCPCS: 99222 ==

== ENCOUNTER 2024-11-21 08:20 | Emergency (ER) | payer MEDICARE, SELFPAY ==
--- NOTE | ~2024-11-21 | XR_ITS ---
EXAMINATION: XR SACRUM AND COCCYX CLINICAL INFORMATION: pain, s/p fall COMPARISON: None available. TECHNIQUE: 2 views of the sacrum and 2 views of the coccyx were obtained. FINDINGS: There are no fractures. No bone, joint or soft tissue abnormality is demonstrated. XR/XR sacrum coccyx min 2V IMPRESSION: Unremarkable sacrum examination. Electronically signed by: Samson Coelho MD 11/21/2024 10:27 AM [facility]
--- NOTE | ~2024-11-21 | XR_ITS ---
EXAMINATION: XR LUMBOSACRAL SPINE CLINICAL INFORMATION: fall COMPARISON: None available. Correlation made with CT abdomen and pelvis 03/06/2020. TECHNIQUE: Three views of the lumbosacral spine. FINDINGS: Diffuse osteopenia. Moderate right convex scoliosis, apex at L3. No acute fracture, acute compression deformity, or suspicious bone lesion evident. Mild concavity of the superior endplate of L3 appears chronic. Sagittal alignment evaluation is limited due to mild rotation and scoliosis. There appears to be a minimal degenerative anterolisthesis of L4 on L5. Significant disc degeneration present L1-2 and L2-3. Normal facet alignment with degenerative facet changes most notable L4-S1. Sacrum appears grossly intact. SI joints appear normal. Soft tissues demonstrate vascular calcifications diffusely. There is a stent in the right heart. XR/XR lumbar spine 2-3V IMPRESSION: 1. No acute fracture or subluxation identified. Osteopenia. 2. Moderate right convex scoliosis with degenerative spondylosis. Electronically signed by: Mason Burgos MD 11/21/2024 10:24 AM [facility]
--- NOTE | ~2024-11-21 | XR_ITS ---
Examination: Left hip with AP pelvis. 3 views. CLINICAL INDICATION: Fall. COMPARISON: None. FINDINGS: AP pelvis: There is normal symmetry of bilateral hip joints and SI joints with maintained joint space. There is no fracture involving the pelvic bones. There is a small radiopaque density in the soft tissues inferior to right ischium. There is moderate stool in the right colon. Left hip: 2 views of left hip reveal no visible acute fracture, dislocation or subluxation seen. The soft tissues are normal. XR/XR hip LT w PEL 1V IMPRESSION: No acute fracture or dislocation left hip or AP pelvis. There is a small radiopaque foreign body in the soft tissues inferior to right ischium. Electronically signed by: Samson Coelho MD 11/21/2024 10:26 AM J[facility]US
[2024-11-21 08:22] VITALS: BP 162/79; PULSE 75; RESP 16; TEMP 36.1; O2SAT 96; BMI 25.4
--- NOTE | 2024-11-21 10:42 | ED_ITS ---
HPI - Fall General Chief Complaint: Fall Stated Complaint: fall Time Seen by Provider: 11/21/24 09:29 History of Present Illness HPI Narrative: Patient complains of left hip pain and low back pain after a fall last night where she fell onto her lower back from standing as she was trying to ambulate with her walker, she did not hit her head she has no neck pain no extremity pains outside of the hip, and is able to bear weight and ambulate with her walker She was awake and alert for the whole time she had no preceding symptoms of dizziness headache chest pain palpitations or shortness of breath, no syncope no feeling faint Related Data Home Medications ?Medication ?Instructions ?Recorded ?Confirmed amlodipine 5 mg tablet 5 mg PO DAILY 08/22/24 10/06/24 atorvastatin 80 mg tablet 80 mg PO DAILY 08/22/24 10/06/24 losartan 100 mg tablet 100 mg PO DAILY 08/22/24 10/06/24 metoprolol tartrate 50 mg tablet 50 mg PO BID 08/22/24 10/06/24 famotidine 20 mg tablet 20 mg PO BID PRN heartburn 10/06/24 10/06/24 fluticasone propionate 50 1 spray intranasal DAILY 10/06/24 10/06/24 mcg/actuation nasal spray,suspension Allergies Allergy/AdvReac Type Severity Reaction Status Date / Time nut - unspecified [NUTS] Allergy Severe ANAPHYLAXIS Verified 11/21/24 08:22 nitrofurantoin Allergy Unknown ITCHING Verified 11/21/24 08:22 [From MACROBID] [facility] Past Medical History Source: nursing notes reviewed Medical History (Updated 11/21/24 @ 10:44 by ERIC William) Chronic anemia CKD (chronic kidney disease) stage 4, GFR 15-29 ml/min GERD (gastroesophageal reflux disease) Hyperlipidemia HTN (hypertension) Social History Social History (Updated 08/21/24 @ 13:09 by Leyla Strickland DO) Patient Tobacco Use Status: Former Tobacco user Smoked in Last 30 Days: No Use of substances other than those prescribed or required for medical reasons: No Advance Directives: Yes Advance Directives on File: Yes Advance Directives Date on File: 10/06/24 Do you have a plan to hurt others: No Plan service: No Physical Exam Vital Signs: Vital Signs: Last Vital Signs Temp 96.9 F 11/21/24 08:22 Pulse 75 11/21/24 08:22 Resp 16 11/21/24 08:22 BP 162/79 H 11/21/24 08:22 Pulse Ox 96 11/21/24 08:22 O2 Del Method Room Air 11/21/24 08:22 BMI result Body Mass Index 25.4 General appearance is cheerful cooperative no acute distress Head is normocephalic atraumatic Neck is supple with full range motion nontender The chest had no chest wall tenderness no rib tenderness no respiratory distress Abdomen soft nontender The back had very mild paraspinal soft tissue tenderness on both sides in the lower lumbar area and in the upper buttock area on the left, but no focal bony tenderness The extremities is full range of motion x4 including left leg left hip left knee left ankle, there was no discomfort with full range of motion Other extremities are normal Neuro exam motor is 5/5 x4 sensation in distal extremities is intact and symmetrical, interaction comprehension and expression were normal Course Course Course Narrative: Well-appearing patient with full range of motion in the left hip who normally ambulates with a walker had fall last night and is bearing weight home X-rays of left hip pelvis lumbar spine and sacrum were all negative for acute fracture and patient is discharged home Discharge Plan Discharge Clinical Impression: Fall, Back strain Patient Disposition: Home, Self-Care Additional Instructions: X-rays of your hip and lower back were without signs of broken bone, there was some arthritis On exam you move the hip easily and fully Follow with primary doctor as needed Return any time any worse condition or any concerns Prescriptions: No Action atorvastatin 80 mg tablet 80 mg PO DAILY amlodipine 5 mg tablet 5 mg PO DAILY metoprolol tartrate 50 mg tablet 50 mg PO BID losartan 100 mg tablet 100 mg PO DAILY famotidine 20 mg tablet 20 mg PO BID PRN (Reason: heartburn) fluticasone propionate 50 mcg/actuation spray,suspension 1 spray intranasal DAILY Print Language: Romanian
[2024-11-21 11:01] VITALS: BP 162/79; PULSE 75; RESP 16; TEMP 36.1; O2SAT 96
== END 2024-11-21 11:02 | disposition home or self-care (01) ==
PROVIDERS: Emergency Provider Emergency Medicine; PCP Family Medicine
DX: S39.012A Strain of muscle, fascia and tendon of lower back, initial encounter (principal); W18.30XA Fall on same level, unspecified, initial encounter; Y93.9 Activity, unspecified; Y92.9 Unspecified place or not applicable; Y99.9 Unspecified external cause status; M25.552 Pain in left hip; I12.9 Hypertensive chronic kidney disease with stage 1 through stage 4 chronic kidney disease, or unspecified chronic kidney disease; N18.4 Chronic kidney disease, stage 4 (severe); K21.9 Gastro-esophageal reflux disease without esophagitis; Z79.899 Other long term (current) drug therapy
CPT/HCPCS: 72100; 72220; 73502; 99283; 99284

== ENCOUNTER 2024-12-08 08:49 | Emergency (ER) | payer MEDICARE, SELFPAY ==
--- NOTE | ~2024-12-08 | CT_ITS ---
CLINICAL HISTORY: posterior neck tenderness CT cervical spine without contrast Comparison: CT/AK/SR - CT CERVICAL SPINE WO IV CON - 08/21/24 12:00 EDT Findings: No evidence of cervical spine fracture. Vertebral body heights are maintained. The usual cervical lordosis is maintained. Similar degenerative anterolisthesis of C3 on C4 and C4 on C5. No other spondylolisthesis or facet dislocation. Mild cervical discogenic degenerative disease which is most conspicuous at C4-C5 and C5-C6. No significant osseous spinal canal narrowing. In combination with multilevel uncovertebral and facet osteoarthritis, this results in degenerative neural foraminal narrowing. The prevertebral soft tissues are not abnormally thickened. Mild biapical pulmonary scarring without focal consolidation. Calcific atherosclerosis, including mild to moderate bilateral carotid bulb calcifications. IMPRESSION: No acute cervical spine findings. This document has been electronically signed by: Carson Vogt DO on 12/08/2024 11:26:31
--- NOTE | ~2024-12-08 | CT_ITS ---
CLINICAL HISTORY: fall head injury CT head without contrast Comparison: CT/SR - CT HEAD FOR STROKE - 10/05/24 17:38 EST Findings: No acute intracranial hemorrhage or midline shift. The kumar-white matter differentiation is maintained. Bilateral carotid siphon and vertebrobasilar calcifications. Mild generalized cerebral involutional change. Moderate burden chronic small-vessel white matter ischemic change. Similar subcentimeter hypodensity within the right lentiform nucleus which may represent a prominent perivascular space or old lacunar infarct. The paranasal sinuses and mastoid air cells are clear. Cerumen/debris within the external auditory canals, right more than left. The calvarium is intact. Left temporomandibular joint osteoarthritis. IMPRESSION: No acute intracranial findings. This document has been electronically signed by: Carson Vogt DO on 12/08/2024 11:14:05
[2024-12-08 08:56] VITALS: BP 146/92; PULSE 96; O2SAT 97
--- NOTE | 2024-12-08 09:08 | ED.GENADULT ---
HPI - General Adult General Chief complaint: Fall Stated complaint: FALL DEMENTIA Time Seen by Provider: 12/08/24 09:08 History of Present Illness ED Provider: Shanell ESPAÑA narrative: The patient is an 84-year-old woman who lives alone. She lives in an apartment in an elderly housing complex. She was on the phone with her daughter today when suddenly her daughter heard the patient yelling ?I fell, I fell. The patient says that she fell off a chair. The daughter hypothesis is that the patient might have been using the chair to cruise around the kitchen and the chair may have fallen over and the patient may have fallen. There does not seem to have been loss of consciousness since the patient was on the phone at the time of the fall and yelled immediately. The daughter called 911 and the patient was brought to the hospital. The patient has obvious bruising to the left upper lip. She has had no mental status changes. Related Data Home Medications ?Medication ?Instructions ?Recorded ?Confirmed amlodipine 5 mg tablet 5 mg PO DAILY 08/22/24 10/06/24 atorvastatin 80 mg tablet 80 mg PO DAILY 08/22/24 10/06/24 losartan 100 mg tablet 100 mg PO DAILY 08/22/24 10/06/24 metoprolol tartrate 50 mg tablet 50 mg PO BID 08/22/24 10/06/24 famotidine 20 mg tablet 20 mg PO BID PRN heartburn 10/06/24 10/06/24 fluticasone propionate 50 1 spray intranasal DAILY 10/06/24 10/06/24 mcg/actuation nasal spray,suspension Allergies Allergy/AdvReac Type Severity Reaction Status Date / Time nut - unspecified [NUTS] Allergy Severe ANAPHYLAXIS Verified 12/08/24 09:22 nitrofurantoin Allergy Unknown ITCHING Verified 12/08/24 09:22 [From MACROBID] Review of Systems Review of Systems: Yes all other systems are reviewed and are negative PMFSH Past Medical History Medical History (Updated 12/08/24 @ 11:35 by Mathew Reece MD) Chronic anemia CKD (chronic kidney disease) stage 4, GFR 15-29 ml/min GERD (gastroesophageal reflux disease) Hyperlipidemia HTN (hypertension) Social History Social History (Updated 08/21/24 @ 13:09 by Leyla Strickland DO) Patient Tobacco Use Status: Former Tobacco user Advance Directives: Yes Advance Directives on File: Yes Advance Directives Date on File: 10/11/24 service: No Physical Exam ED Vital Signs: Vital Signs - 24 hr 12/08/24 09:15 12/08/24 09:21 Temperature 97.6 F 97.6 F Pulse Rate 73 73 Respiratory Rate 16 16 Blood Pressure 177/78 H 177/78 H Pulse Oximetry 100 100 Oxygen Delivery Method Room Air Room Air BMI result Body Mass Index 15.7 Const Other: The patient is a frail looking 84-year-old who was awake and alert. GCS 15. She has obvious bruising to to the skin above the left upper lip. HENMT Other: The patient has bruising in the region of the left upper lip. There is no intraoral laceration. No intraoral swelling. No significant soft tissue swelling associated with the bruising. Normal excursion of the jaw. Eyes Other: No signs of trauma around the eyes. Pupils are round equal, conjunctivae are clear, extraocular movements are intact, eyelids are unremarkable. Neck Other: The patient was moving her neck easily and without apparent discomfort but when I palpated her posterior C-spine she reported focal tenderness in the mid C spine. Chest Other: No chest wall tenderness. Resp Effort & Inspection: normal respiratory effort Auscultation: clear to auscultation bilaterally Cardio Rate: regular rate Rhythm: regular rhythm Heart sounds: S1 normal heart sound present and S2 normal heart sound present GI Other: Abdomen is soft and nontender Skin Other: There is bruising to the skin of the face in the region of the left upper lip. Skin is intact. Otherwise the skin is dry and unremarkable. Neuro Other: The patient is awake and alert with a GCS of 15. Cranial nerves are grossly intact. She moves her extremities symmetrically. No focal finding. Extrem Other: The patient can move her arms and her legs easily and without pain. Medical Decision Making Medical Decision Making MDM Narrative: The patient is an 84-year-old female who comes to the emergency room after having sustained what I suspect was a mechanical fall. She was conscious at the time and was on the phone talking to her daughter at the time of the fall. She either slipped off a chair or was using the chair to steady herself when the chair fell. She clearly landed on her face. She has a bruising in the region of the left upper lip. No other obvious signs of trauma although she has reported tenderness with palpation of the posterior C-spine. A head CT and a cervical spine CT are negative. She does not seem show other signs of injuries. She does not seem ill otherwise. The patient's daughter was concerned that the patient has had several falls recently. She lives in an elderly housing complex but has little supports in her apartment. Family is considering moving the patient into assisted living and the patient seems open to that idea. However at the moment I think she is safe for discharge. Discharge Plan Discharge Clinical Impression: Fall, Contusion of face Patient Disposition: Home, Self-Care Additional Instructions: Your testing today does not show any dangerous injury. Please continue your regular medications. Please follow up soon with your regular doctor. Please consider moving into an assisted living facility or other place where you may have more help than you currently have. Return to the emergency room if worse. Prescriptions: No Action atorvastatin 80 mg tablet 80 mg PO DAILY amlodipine 5 mg tablet 5 mg PO DAILY metoprolol tartrate 50 mg tablet 50 mg PO BID losartan 100 mg tablet 100 mg PO DAILY famotidine 20 mg tablet 20 mg PO BID PRN (Reason: heartburn) fluticasone propionate 50 mcg/actuation spray,suspension 1 spray intranasal DAILY Referrals: Markus Hopper MD [Primary Care Provider] - (fall) Print Language: Egyptian
[2024-12-08 09:15] VITALS: BP 177/78; PULSE 73; RESP 16; TEMP 36.4; O2SAT 100
[2024-12-08 09:21] VITALS: BP 177/78; PULSE 73; RESP 16; TEMP 36.4; O2SAT 100; BMI 15.7
--- OUTSIDE RECORDS SUMMARY | 2024-12-08 09:36 | XMS_ITS | Encounter Summary ---
Author Organization [facility] Address [address] [place] [address] Care Team Providers Care Petroleum Geologist Name Role Phone Markus Hopper MD Primary Care Pr ovider Encounter Details Date Type Department Care Team (Late st Contact Info) Description 12/02/2024 Telephone Adult Medicine [address] [phone] Markus Hopper MD [address] [place] [id number] Social History Tobacco Use Types Packs/Day Years Used Date Smoking Tobacco: Former Cigarettes 0.1 12 0 10/30/1955 - 10/30/1967 Smokeless Tobacco: Never Alcohol Use Standard Drinks/Week Comments No 0 (1 standard drink = 0.6 oz pur e alcohol) Comments Unknown Sex and Gender Information Value Date Recorded Sex Assigned at Not on file Legal Sex Female 8:44 PM EST Gender Identity Not on file Sexual Orientation Not on file documented as of this encounter Ordered Prescriptions Prescription Sig Dispense Quantity Refills Last Filled Start Date End Date losartan (Cozaar) 50 mg tabletIndications: Primary hypertension Take 1 tablet (50 mg total) by mouth 1 (one) time each day. 90 each 1 12/02/2024 05/31/2025 documented in this encounter Progress Notes * Lydia Stephens RN - 12/03/2024 8:43 AM EST Called and spoke to pt's daughter Paty. She was informed per Dr. Hopper; BP readings reviewed and elevated. Will recommend increasing the losartan to 50 mg daily. She can take#2 of the 25mg until she runs out. I have sent her the 50 mg tablet. Continue the same dose of metoprolol Follow-up in 1 month for blood pressure check. An appointment was made for the pt to be seen in the office on 01/03/25 at 12:[address] Hopperfor a BP check. She is in agreement with this plan. * Markus Hopper MD - 12/02/2024 6:25 PM EST Bp readings reviewed and elevated. Will recommend increasing the losartan to 50 mg daily. She can take#2 of the 25mg until she runs out. I have sent her the 50 mg tablet. Continue the same dose of metoprolol Follow-up in 1 month for blood pressure check. thank you documented in this encounter Plan of Treatment Upcoming Encounters Date Type Department Care Team (Late st Contact Info) Description 12/20/2024 2:15 PM EST Appointment Radiology Department - [address] [phone] 01/03/2025 12:30 PM EST Office Visit Adult Medicine [address] [phone] Markus Hopper MD [address] [place] [address] 01/21/2025 11:00 AM EDT Ancillary Procedure [facility] - [address] [place] [address] 02/11/2025 3:45 PM EDT Office Visit Orthopedic Surgery - [place] [address] [phone] Placido Marinelli, DPM [address] [phone] documented as of this encounter Visit Diagnoses Diagnosis Primary hypertension- Primary Unspecified essential hypertension documented in this encounter Discontinued Medications Medication Sig Discontinue Reason Start Date End Da te losartan (Cozaar) 25 mg tabletIndications:Primary hypertension Take 1 tablet (25 mg total) by mouth at bedtime. 11/11/2024 12/02/2024 documented as of this encounter Care Teams Petroleum Geologist Relationship Specialty Start Date End Date Markus Hopper MD [address] [place] [phone] PCP - General 12/23/22 documented as of this encounter
--- OUTSIDE RECORDS SUMMARY | 2024-12-08 09:36 | XMS_ITS | Encounter Summary ---
Author Organization [facility] Address [address] [place] [address] Care Team Providers Care Traffic Officer Name Role Phone Markus Hopper MD Primary Care Pr ovider Reason for Visit * Reason Onset Date Comments Hypertension 12/02/2024 Encounter Details Date Type Department Care Team (Late Contact Info) Description 12/02/2024 Telephone Adult Medicine [address] [phone] Markus Hopper MD [address] [place] [phone] Hypertension Social History Tobacco Use Types Packs/Day Years [...] on file documented as of this encounter Progress Notes * Mayra Wilson RN - 12/03/2024 8:57 AM EST Please see additional encounter dated 12/02/2024 for follow-up. Encounter closed. * Mayra Wilson RN - 12/02/2024 1:33 PM EST [employer] message forwarded to Dr. Hopper. * Mayra Wilson RN - 12/02/2024 11:48 AM EST Call to Paty, sending through [employer]. * Markus Hopper MD - 12/02/2024 11:45 AM EST Please find out what the specific BP readings are for the past 2 weeks. thanks * Mayra Wilson RN - 12/02/2024 11:29 AM EST Spoke with Paty, Pt's daughter. Pt's BP has been slowly increasing over the past couple weeks. Paty states Pt does not have symptoms from this. Paty is asking if Dr. Hopper would like to adjust medications. Forwarding to Dr. Hopper for review and consideration. * Ariana Caceres - 12/02/2024 9:39 AM EST Patient call requires triage: Symptoms patient is presenting: patient daughter Paty is calling for patient (health care proxy)- states her mothers blood pressure has been slowly creeping up - states she has monitored her the past 2wks and the lowest it has been is 148/69 and the highest 161/78 and 163/76 which was last night and this morning - states Losartan was decreased recently to 25mg and wonders if an adjustment to m edication maybe needed How long has patient had these symptoms?: past two weeks For ALL patients calling to schedule any appointment (routine, sick visit, follow up, consult, etc.) in the outpatient setting please ask the following questions: Do you have fever of higher than 101, sore throat with difficulty swallowing or severe shortness ofbreath? no If YES to any of these above symptoms, send a message to triage and do not book. Red dot. If no, an audio or video visit should be booked. Have you had close contact with someone with Coronavirus in the last 14 days? no Have you traveled abroad? no Have you traveled recently to another state outside of [place], [place], [place], [place], [place], [place], [place]? no o If yes, did you quarantine for 14 days or have a negative covid test? yes If yes to any of the above, patient is not to be scheduled in office until after 14 day quarantine or negative covid test. If pain or injury related was it due to an accident at work or from a motor vehicle accident? If yes, date of accident/Injury: No If yes, gather 3rd republican insurance information Third Democrat Information: not applicable PCP: Markus Hopper MD Payor: MEDICARE / Plan: MEDICARE PART A & B / Product Type: Medicare / documented in this encounter Plan of Treatment Upcoming Encounters Date Type Department Care Team (Late st Contact Info) Description 12/20/2024 2:15 PM EST Appointment Radiology Department [address] [phone] 01/03/2025 12:30 PM EST Office Visit Adult Medicine [address] [phone] Markus Hopper MD [address] [place] [address] 01/21/2025 11:00 AM EDT Ancillary Procedure [facility] [address] [place] [phone] 02/11/2025 3:45 PM EDT Office Visit Orthopedic Surgery - [place] [address] [phone] Placido Marinelli, DPM [address] [phone] documented as of this encounter Visit Diagnoses Not on filedocumented in this encounter Care Teams Traffic Officer Relationship Specialty Start Date End Date Markus Hopper MD [address] [place] [phone] PCP - General 12/23/22 documented as of this encounter
--- OUTSIDE RECORDS SUMMARY | 2024-12-08 09:36 | XMS_ITS | Encounter Summary ---
Author Organization [facility] Address [address] [place] [address] Care Team Providers Care Retail Pharmacist Name Role Phone Markus Hopper MD Primary Care Pr ovider Encounter Details Date Type Department Care Team (Latest Contact Info) Description 11/11/2024 12:12 PM EST - 11/11/2024 11:59 PM [facility] Hospital Encounter XRAY - [address] [place] [phone] Acute pain of left knee Discharge Disposition: Home or Self Care Social History Tobacco Use Types Packs/Day Years [...] on file documented as of this encounter Medications at Time of Discharge acetaminophen (Tylenol 8 Hour) 650 mg 8 hr tablet Take 1 tablet (650 mg total) by mouth every 8 (eight) hours if needed for mild pain. Do not crush, chew, or split. 180 tablet 09/02/2024 aspirin 81 mg EC tablet Take 1 Tab by mouth daily. 06/15/2011 cholecalciferol (VITAMIN D-3) 25 mcg (1,000 unit) capsule None Entered famotidine (Pepcid) 20 mg tablet Take 1 tablet (20 mg total) by mouth 2 (two) times a day if needed for heartburn. 180 each 1 09/02/2024 metoprolol tartrate (LOPRESSOR) 50 mg tablet TAKE 1 TABLET BY MOUTH TWICE A DAY 06/24/2024 nutritional drink (Ensure MAX Protein) liquid Take 1 Bottle by mouth 3 times daily (with meals). 01/19/2024 triamcinolone (KENALOG) 0.1 % ointment Apply small amounts to affected area every 12 hours. Do not use for more than 14 days at a time 01/19/2024 Vitamin C tablet Take 1 Tablet by mouth daily. atorvastatin (LIPITOR) 80 mg tablet Take 1 Tablet by mouth daily. 01/19/2024 losartan (Cozaar) 25 mg tabletIndications: Primary hypertension Take 1 tablet (25 mg total) by mouth at bedtime. 90 each 1 11/11/2024 documented as of this encounter Discharge Disposition Disposition Code Departure Means Destination Home or Self Care documented in this encounter Plan of Treatment Upcoming Encounters Date Type Department Care Team (Late st Contact Info) Description 12/20/2024 2:15 PM EST Appointment Radiology Department [address] [phone] 01/03/2025 12:30 PM EST Office Visit Adult Medicine [address] [phone] Markus Hopper MD [address] [place] [phone] 01/21/2025 11:00 AM EDT Ancillary Procedure [facility] [address] [facility] [address] [place] [id number] 02/11/2025 3:45 PM EDT Office Visit Orthopedic Surgery - [place] [address] [facility] [address] [place] [phone] Placido Marinelli, TAMEKA [address] [facility] [address] [place] [address] documented as of this encounter Procedures Procedure Name Priority Date/Time Associated Diagnosis Comments XR KNEE 4+ VIEWS LEFT Routine 11/11/2024 12:25 PM EST Acute pain of left knee documented in this encounter Results * XR Knee 4+ Views Left (11/11/2024 12:25 PM EST) Anatomical Region Laterality Modality Lower Extremities, Knee [facility] 11/11/2024 5:43 PM EST Impressions 11/11/2024 5:43 PM EST No fracture or dislocation. -------- FINAL REPORT -------- Dictated By: Dakota Miranda Dictated Date: 11/11/2024 17:43 ET Assigned Physician: Dakota Miranda Reviewed and Electronically Signed By: Dakota Miranda Signed Date: 11/11/2024 17:43 ET Workstation ID: [id number] Transcribed By: Self Edit Transcribed Date: 11/11/2024 17:43 ET Narrative 11/11/2024 5:43 PM EST XR KNEE 4+ VIEWS LEFT Reason: left knee pain Comparison: None FINDINGS: No fracture. ??Normal alignment. ??Normal joint spaces. ??No suprapatellar joint effusion. Procedure Note Dakota Miranda MD - 11/11/2024 XR KNEE 4+ VIEWS LEFT Reason: left knee pain Comparison: None FINDINGS: No fracture. Normal alignment. Normal joint spaces. No suprapatellarjoint effusion. IMPRESSION: No fracture or dislocation. -------- FINAL REPORT -------- Dictated By: Dakota Miranda Dictated Date: 11/11/2024 17:43 ET Assigned Physician: Dakota Miranda Reviewed and Electronically Signed By: Dakota Miranda Signed Date: 11/11/2024 17:43 ET Workstation ID: [id number] Transcribed By: Self Edit Transcribed Date: 11/11/2024 17:43 ET Markus Hopper MD IMG XR PROCEDURE S Final Result documented in this encounter Visit Diagnoses Diagnosis Acute pain of left knee documented in this encounter Care Teams Retail Pharmacist Relationship Specialty Start Date End Date Markus Hopper MD [address] [place] [phone] PCP - General 12/23/22 documented as of this encounter
--- OUTSIDE RECORDS SUMMARY | 2024-12-08 09:36 | XMS_ITS | Encounter Summary ---
Author Organization [facility] Address [address] [place] [address] Care Team Providers Care Securities Vault Supervisor Name Role Phone Markus Hopper MD Primary Care Pr ovid Reason for Referral * Consultation (Routine) - Authorized Specialty Diagnoses / Procedures Referred By Atiya padron Referred To Contact Gastroenterology Diagnoses Colitis Markus Hopper MD [address] [place] [id number] Phone: tel: fax: Gastroenterology [facility] 175 [facility] 175 [facility] [address] [place] [address] Phone: tel: fax: Referral ID Status Reason Start Date Expiration Date Visits Requested Visits Authorized [id number] Authorized Specialty Services Required 11/12/2024 11/12/2025 1 1 * Imaging (Routine) - Authorized Specialty Diagnoses / Procedures Referred By Atiya padron Referred To Contact Radiology Diagnoses Thyroid condition Procedures US Head Neck Soft Tissue Markus Hopper MD [address] [place] [address] Phone: tel: fax: [address] Phone: tel: Referral ID Status Reason Start Date Expiration Date V isits Requested Visits Authorized [id number] Authorized 11/12/2024 11/12/2025 1 1 * Consultation (Routine) - Authorized Specialty Diagnoses / Procedures Referred By Atiya t Referred To Contact Nephrology Diagnoses Stage 3b chronic kidney disease (CMS/HCC) Markus Hopper MD [address] [place] [address] Phone: tel: fax: [address] Phone: tel: fax: Referral ID Status Reason Start Date Expiration Date Visits Requested Visits Authorized [id number] Authorized Specialty Services Required 11/11/2024 11/11/2025 1 1 * Consultation (Routine) - Authorized Specialty Diagnoses / Procedures Referred By Atiya padron Referred To Contact Cardiology Diagnoses Ischemic cardiomyopathy Markus Hopper MD [address] [place] [address] Phone: tel: fax: [facility] - [address] [place] [address] [place] [phone] Phone: tel: fax: Referral ID Status Reason Start Date Expiration Date Visits Requested Visits Authorized [id number] Authorized Specialty Services Required 11/11/2024 11/11/2025 1 1 * Imaging (Routine) - Authorized Specialty Diagnoses / Procedures Referred By Atiya padron Referred To Contact Cardiology Diagnoses Ischemic cardiomyopathy Procedures Transthoracic echocardiogram (TTE) complete with PRN contrast, bubble, strain, and 3D order panel UT TTE W 2D IMAGE COMPLETE W DOPPLER ECHO & COLOR FLOW DOPPLER ECHO UT NATE 2D COMPLETE W/CONTRAST OR W & WO CONTRAST WITH DOPPLER Markus Hopper MD [address] [place] [address] Phone: tel: fax: [facility] Referral ID Status Reason Start Date Expiration Date V isits Requested Visits Authorized [id number] Authorized 11/11/2024 11/11/2025 1 1 * Consultation (Routine) - Closed Specialty Diagnoses / Procedures Referred By Atiya padron Referred To Contact Neurology Diagnoses Mild vascular dementia without behavioral disturbance, psychotic disturbance, mood disturbance, or anxiety (CMS/HCC) Markus Hopper MD [address] [place] [address] Phone: tel: fax: Geoff Schwarz MD [address] [place] [phone] Phone: tel: fax: Referral ID Status Reason Start Date Expiration Date V isits Requested Visits Authorized [id number] Closed Specialty Services Required 11/11/2024 11/11/2025 1 1 Reason for Visit * Reason Comments Hospital Follow-up Encounter Details Date Type Department Care Team (Late st Contact Info) Description 11/11/2024 10:30 AM EST Office Visit Adult Medicine [address] [phone] Markus Hoppere, MD [address] [place] [address] Hospital discharge follow-up (Primary Dx); Colitis; Normocytic anemia; History of MS (myocardial infarction); Primary hypertension; Ischemic cardiomyopathy; Mild vascular dementia without behavioral disturbance, psychotic disturbance, mood disturbance, or anxiety (CMS/HCC); Elevated lipase; Acute pain of left knee; Leg swelling; Thyroid condition; Stage 3b chronic kidney disease (CMS/HCC) Social History Tobacco Use Types Packs/Day Years Used Date Smoking Tobacco: Former Cigarettes 0.1 12 0 10/30/1955 - 10/30/1967 Smokeless Tobacco: Never Tobacco Cessation:Counseling Given: Not Answered Alcohol Use Standard Drinks/Week Comments No 0 (1 standard drink = 0.6 oz pur e alcohol) Comments Unknown Sex and Gender Information Value Date Recorded Sex Assigned at Not on file Legal Sex Female 8:44 PM EST Gender Identity Not on file Sexual Orientation Not on file documented as of this encounter Last Filed Vital Signs Vital Sign Reading Time Taken Comments Blood Pressure 135/80 11/11/2024 10:42 AM EST Pulse 80 11/11/2024 10:42 AM EST Temperature 36.4 ??C (97.5 ??F) 11/11/2024 10:[address] Respiratory Rate 15 11/11/2024 10:42 AM EST Oxygen Saturation - - Inhaled Oxygen Concentration - - Weight 35.8 kg (79 lb) 11/11/2024 10:42 AM EST Height 144.8 cm (4' 9 ) 11/11/2024 10:42 AM EST Body Mass Index 17.1 11/11/2024 10:42 AM EST documented in this encounter Ordered Prescriptions Prescription Sig Dispense Quantity Refills Last Filled Start Date End Date losartan (Cozaar) 25 mg tabletIndications: Primary hypertension Take 1 tablet (25 mg total) by mouth at bedtime. 90 each 1 11/11/2024 12/02/2024 documented in this encounter Progress Notes * Markus Hopper MD - 11/11/2024 10:30 AM ESTAssociated Problem(s): Normocytic anemia Likely 2/2 CKD stage 3b. She has agreed to establish care with a space physicist and a referral is placed Will update labs Orders: CBC and differential; Future * Markus Hopper MD - 11/11/2024 10:30 AM ESTAssociated Problem(s): History of MS (myocardial infarction) Continue aspirin and atorvastatin 80mg * Markus Hopper MD - 11/11/2024 10:30 AM ESTAssociated Problem(s): Hypertension BP today is stable but labile and mostly elevated at home. Goal BP is < 130/80. She will continue metoprolol 50mg BID and start decreased dose of losartan Monitor BP at home Report readings via mychart after a month to determine need for medication adjustment Orders: losartan (Cozaar) 25 mg tablet; Take 1 tablet (25 mg total) by mouth at bedtime. Comprehensive metabolic panel; Future * Markus Hopper MD - 11/11/2024 10:30 AM ESTAssociated Problem(s): Mild vascular dementia without behavioral disturbance, psychotic disturbance, mood disturbance, or anxiety ([facility]) Likely due to underlying Moderate underlying microangiopathy and generalized cerebral volume loss. Referred to neurology Orders: Ambulatory referral to Neurology; Future * Markus Hopper MD - 11/11/2024 10:30 AM ESTAssociated Problem(s): CKD (chronic kidney disease) stage 3, GFR 30-59 ml/min ([facility]) She is now amenable to seeing A space physicist. Counselled on the importance of this Orders: Ambulatory referral to Nephrology; Future * Markus Hopper MD - 11/11/2024 10:30 AM EST Images from the original note were not included. Patient Education High Blood Pressure: Care Instructions Overview It's normal for blood pressure to go up and down throughout the day. But if it stays up, you have high blood pressure. Another name for high blood pressure is hypertension. For diagnosis, the top number may be 130 to 140 or higher. The bottom number may be 80 to 90 or higher. Despite what a lot of people think, high blood pressure usually doesn't cause headaches or make youfeel dizzy or lightheaded. It usually has no symptoms. But it does increase your risk of stroke, heart attack, and other problems. You and your doctor will talk about your risks of these problems based on your blood pressure. Your doctor will give you a goal for your blood pressure. Your goal will be based on your health and your age. Lifestyle changes, such as eating healthy and being active, are always important to help lower blood pressure. You might also take medicine to reach your blood pressure goal. Follow-up care is a rangel part of your treatment and safety. Be sure to make and go to all appointments, and call your doctor if you are having problems. It's also a good idea to know your test resultsand keep a list of the medicines you take. How can you care for yourself at home? Medical treatment If you stop taking your medicine, your blood pressure will go back up. You may take one or more types of medicine to lower your blood pressure. Be safe with medicines. Take your medicine exactly as prescribed. Call your doctor if you think you are having a problem with your medicine. Talk to your doctor before you start taking aspirin every day. Aspirin can help certain people lower their risk of a heart attack or stroke. But taking aspirin isn't right for everyone, because it can cause serious bleeding. See your doctor regularly. You may need to see the doctor more often at first or until your blood pressure comes down. If you are taking blood pressure medicine, talk to your doctor before you take decongestants or anti-inflammatory medicine, such as ibuprofen. Some of these medicines can raise blood pressure. Learn how to check your blood pressure at home. Lifestyle changes Stay at a healthy weight. This is especially important if you put on weight around the waist. Losing even 10 pounds can help you lower your blood pressure. If your doctor recommends it, get more exercise. Walking is a good choice. Bit by bit, increase theamount you walk every day. Try for at least 30 minutes on most days of the week. You also may want to swim, bike, or do other activities. Avoid or limit alcohol. Talk to your doctor about whether you can drink any alcohol. Try to limit how much sodium you eat to less than 2,300 milligrams (mg) a day. Your doctor may ask you to try to eat less than 1,500 mg a day. Eat plenty of fruits (such as bananas and oranges), vegetables, legumes, whole grains, and low-fat dairy products. Lower the amount of saturated fat in your diet. Saturated fat is found in animal products such as milk, cheese, and meat. Limiting these foods may help you lose weight and also lower your risk for heart disease. Do not smoke. Smoking increases your risk for heart attack and stroke. If you need help quitting, talk to your doctor about stop-smoking programs and medicines. These can increase your chances of quitting for good. When should you call for help? Call 911 anytime you think you may need emergency care. This may mean having symptoms that suggest that your blood pressure is causing a serious heart or blood vessel problem. Your blood pressure maybe over 180/120. For example, call 911 if: You have symptoms of a heart attack. These may include: Chest pain or pressure, or a strange feeling in the chest. Sweating. Shortness of breath. Nausea or vomiting. Pain, pressure, or a strange feeling in the back, neck, jaw, or upper belly or in one or both shoulders or arms. Lightheadedness or sudden weakness. A fast or irregular heartbeat. You have symptoms of a stroke. These may include: Sudden numbness, tingling, weakness, or loss of movement in your face, arm, or leg, especially on only one side of your body. Sudden vision changes. Sudden trouble speaking. Sudden confusion or trouble understanding simple statements. Sudden problems with walking or balance. A sudden, severe headache that is different from past headaches. You have severe back or belly pain. Do not wait until your blood pressure comes down on its own. Get help right away. Call your doctor now or seek immediate care if: Your blood pressure is much higher than normal (such as 180/120 or higher), but you don't have symptoms. You think high blood pressure is causing symptoms, such as: Severe headache. Blurry vision. Watch closely for changes in your health, and be sure to contact your doctor if: Your blood pressure measures higher than your doctor recommends at least 2 times. That means the top number is higher or the bottom number is higher, or both. You think you may be having side effects from your blood pressure medicine. Where can you learn more? Scan the Okeyko code or Go to https://www.[employer].net/cornelchart Enter X567 in the search box to learn more about High Blood Pressure: Care Instructions. Current as of: August 22, 2023 Content Version: 14.2 ?? 2023 [facility] [employer]. Care instructions adapted under license by your healthcare professional. If you have questions about a medical condition or this instruction, always ask your healthcare professional. [employer] disclaims any warranty or liability for your use of this information. * Markus Hopper MD - 11/11/2024 10:30 AM EST Images from the original note were not included. TRANSITIONAL CARE MANAGEMENT NOTE Concha Cheng is a 84 y.o. (: 1940) female presents today for a transitional care appointment. The patient was discharged with a diagnosis of: altered mental status/slurred speech/dementia/deconditioning Admit Date: 10/05/24 Discharge Date: 10/10/24 Date of Service: 11/11/2024 Facility: [facility] Discharged to [facility] From [facility] Rehab she was sent to [facility] The patient was discharged with a diagnosis of: weakness, COVID 19, UTI Admit Date: 10/23/25 Discharge Date: 10/26/24 Facility: [facility] Date patient was contacted/or attempted to be contacted: 10/28/24 (Unless visit is 2 days from discharge) The discharge summary and/or Transitional Care Management documentation was reviewed. She is here with her daughter Dana Her initial Hospitalization at [facility] was for alterd mental status/slurred speech. One of her daughters was talking with her over the phone and noticed she had incomprehensible speech. The patient's daughter went to her house to check on her. She very confused and was also unable towalk. Her symptoms resolved upon arrival to the ED. Focal weakness or facial droop was not evident.The patient did not report any pain and did not complain of any acute cardiopulmonary or GI symptoms. She did not report any headache or dizziness. She does take a baby aspirin and statin. No historyof tobacco use. In the ED she was noted to have stable vital signs. Workup revealed no leukocytosis. CT of the head without contrast showed no acute intracranial hemorrhage or infarction. Troponin was 15. LFTs normal. EKG showed normal sinus rhythm, heart rate 94 bpm not ischemic changes. Brain MRI showed no acute intracranial abnormalities. Moderate underlying microangiopathy and generalized cerebral volume loss. Seen by neurology.EEG was done on 10/07/24, it was abnormal due to diffuse background slowing consistent with a diffuse encephalopathic process. I do not see that an echo was done from the Discharge summary She was discharged to [facility] rehab. While there, she fell and could not get up. Second hospitalization was at [facility] for weakness and delirium in the setting of colitis, COVID 19, dehydration and UTI She completed a 5 day course of paxlovid. She had diarrhea, stool cultures and C diff were negative Received 2 doses of ceftriaxone for Suspected UTI Losartan and amlodipine were held due to low Bps. Discharge Labs on 10/26 H/H 9.9/30.7, MCV 96.8; BUN/cr 44/1.7 Admission troponin was slightly elevated at [address] head: 1. No acute intracranial findings. 2. No acute fracture or traumatic malalignment of the cervical spine. Degenerative changes in the cervical spine. Other findings: Biapical pleuroparenchymal scarring and mild centrilobular emphysema in the upper lung. Heterogenous hyperattenuation of the thyroid lobe. Calcifications at bilateral carotid bifurcations Lipase [address] abdomen/pelvis: Circumferential wall thickening in the colon from transverse colon to mid descending colon, may represent ischemic or infectious colitis. Chest XRAY: Heart/Mediastinum: The heart is slightly enlarged. Bilateral pulmonary artery enlargement. I do not have any discharge records from the [facility] Patient reports she feels well. Only concern is some occasional left knee pain which started after the fall in the rehab and some occasional swelling in the ankles/lower legs. At home, her daughter notes she seems more confused in the morning and this gets better throughout the day. Her daughter check on her in the morning and at night and bring her meals. There is concern for dementia. Her BP athome on just the metoprolol tart 50mg BID has been labile. Range is in the 130s to 150s systolic per daughter. When they tried to resume losartan 100mg at home BP was in the low 100s systolic. Not taking amlodipine per DC instructions On metoprolol 50mg BID Losartan was stopped in [facility] due to low BP. Not taking amlodipine per DC instructions from [facility]. She has been getting home care services since discharge and her daughters are helping her set up [employer] services through [facility]. Has initial visit scheduled for this Monday. She continues on aspirin and atorvastatin 80mg nightly due to her hx of MS She has still not followed up/had initial visit with Nephrology despite multiple referrals due to hx of CKD stage 3b-> now stage 4 Patient Care Team: Markus Hopper MD as PCP - General Zayda Drew LPN as Arson Investigator (Care Management) Patient Active Problem List Diagnosis CAD (coronary artery disease) Aneurysm of middle cerebral artery Myocardial infarction (CMS/HCC) Hypertension Calculus of kidney CKD (chronic kidney disease) stage 3, GFR 30-59 ml/min ([facility]/HCC) Distal radial fracture Diverticulitis of colon without hemorrhage Dyslipidemia Gastroesophageal reflux disease History of MS (myocardial infarction) IBS (irritable bowel syndrome) Osteoporosis Prediabetes Sebaceous cyst Senile osteoporosis Sensorineural hearing loss (SNHL) of both ears Underweight Unspecified sinusitis (chronic) Osteoarthritis of cervical spine with myelopathy Normocytic anemia Mild vascular dementia without behavioral disturbance, psychotic disturbance, mood disturbance, or anxiety (CMS/HCC) Atherosclerosis of both carotid arteries Allergies Allergen Reactions Lorazepam Agitation, confusion Nitrofurantoin Hives Current Outpatient Medications Medication Sig Dispense Refill acetaminophen (Tylenol 8 Hour) 650 mg 8 hr tablet Take 1 tablet (650 mg total) by mouth every 8 (eight) hours if needed for mild pain. Do not crush, chew, or split. 180 tablet 0 aspirin 81 mg EC tablet Take 1 Tab by mouth daily. atorvastatin (LIPITOR) 80 mg tablet Take 1 Tablet by mouth daily. cholecalciferol (VITAMIN D-3) 25 mcg (1,000 unit) capsule None Entered famotidine (Pepcid) 20 mg tablet Take 1 tablet (20 mg total) by mouth 2 (two) times a day if neededfor heartburn. 180 each 1 metoprolol tartrate (LOPRESSOR) 50 mg tablet TAKE 1 TABLET BY MOUTH TWICE A DAY nutritional drink (Ensure MAX Protein) liquid Take 1 Bottle by mouth 3 times daily (with meals). triamcinolone (KENALOG) 0.1 % ointment Apply small amounts to affected area every 12 hours. Do not use for more than 14 days at a time Vitamin C tablet Take 1 Tablet by mouth daily. losartan (Cozaar) 25 mg tablet Take 1 tablet (25 mg total) by mouth at bedtime. 90 each 1 No current facility-administered medications for this visit. Past Medical History: Diagnosis Date Calculus of kidney 10/02/2006 DX:Calculus of kidney Distal radial fracture 08/10/2010 DX:Distal radial fracture Diverticulosis of colon (without mention of hemorrhage) 10/02/2006 DX:Diverticulosis of colon (without mention of hemorrhage) Essential hypertension, benign 08/03/2006 DX:Essential hypertension, benign Osteoporosis 09/18/2013 DX:Osteoporosis Personal history of colonic polyps 10/02/2006 DX:Personal history of colonic polyps Senile osteoporosis 10/02/2006 DX:Senile osteoporosis Past Surgical History: Procedure Laterality Date APPENDECTOMY PROCEDURE: UT APPENDECTOMY OTHER SURGICAL HISTORY 02/06/13 PROCEDURE: RENAL ARTERY DUPLEX; COMMENT: Normal Social History Tobacco Use Smoking status: Former Current packs/day: 0.00 Average packs/day: 0.1 packs/day for 12.0 years (1.2 ttl pk-yrs) Types: Cigarettes Start date: 10/30/1955 Quit date: 10/30/1967 Years since quittin.0 Smokeless tobacco: Never Substance Use Topics Alcohol use: No Drug use: No Family History Problem Relation Name Age of Onset Other (Other: bleeding ulcers) Mother Other (Other: dvt) Father Immunization History Administered Date(s) Administered Pneumococcal polysaccharide 23 valent (Pneumovax 23) 2yo and older 08/10/2010 Review of Systems Respiratory: Negative for chest tightness and shortness of breath. Cardiovascular: Positive for leg swelling. Negative for chest pain and palpitations. Gastrointestinal: Negative for abdominal pain, blood in stool, diarrhea, nausea and vomiting. As noted in HPI Objective BP 135/80 Pulse 80 Temp 36.4 ??C (97.5 ??F) (Temporal) Resp 15 Ht 1.448 m (57 ) Wt (!) 35.8 kg (79 lb) BMI 17.10 kg/m?? Physical Exam Constitutional: General: She is not in acute distress. Appearance: Normal appearance. She is not toxic-appearing. HENT: Head: Normocephalic. Cardiovascular: Pulses: Normal pulses. Heart sounds: Normal heart sounds. Comments: Non pitting bl ankle edema Pulmonary: Effort: Pulmonary effort is normal. No respiratory distress. Breath sounds: Normal breath sounds. Abdominal: Palpations: Abdomen is soft. Tenderness: There is no abdominal tenderness. Neurological: Mental Status: She is alert. Assessment & Plan Hospital discharge follow-up See HPI Colitis Circumferential wall thickening in the colon from transverse colon to mid descending colon, may represent ischemic or infectious colitis. Orders: Ambulatory referral to Gastroenterology; Future Normocytic anemia Likely 2/2 CKD stage 3b. She has agreed to establish care with a space physicist and a referral is placed Will update labs Orders: CBC and differential; Future History of MS (myocardial infarction) Continue aspirin and atorvastatin 80mg Primary hypertension BP today is stable but labile and mostly elevated at home. Goal BP is < 130/80. She will continue metoprolol 50mg BID and start decreased dose of losartan Monitor BP at home Report readings via [place]terhart after a month to determine need for medication adjustment Orders: losartan (Cozaar) 25 mg tablet; Take 1 tablet (25 mg total) by mouth at bedtime. Comprehensive metabolic panel; Future Ischemic cardiomyopathy Elevated bNP was noted on labs done at [facility]. Will update BNP, refer to cardiology and obtain ECHO She has some minimal ankle edema. Will trial compression stockings Orders: Transthoracic echocardiogram (TTE) complete with PRN contrast, bubble, strain, and 3D order panel; Future Ambulatory referral to Cardiology; Future B-type natriuretic peptide; Future Mild vascular dementia without behavioral disturbance, psychotic disturbance, mood disturbance, or anxiety (CMS/HCC) Likely due to underlying Moderate underlying microangiopathy and generalized cerebral volume loss. Referred to neurology Orders: Ambulatory referral to Neurology; Future Elevated lipase Noted on labs done at [facility]; will update lipase level. No evidence of pancreatitis on imaging /no reported symptoms Orders: Lipase; Future Acute pain of left knee Continue PT at home Orders: XR Knee 4+ Views Left; Future Leg swelling Orders: Compression stockings Thyroid condition Heterogenous hyperattenuation of the thyroid lobe. Will check TSH and US neck Orders: Thyroid stimulating hormone with reflex to free t4 and free t3; Future US Head Neck Soft Tissue; Future Stage 3b chronic kidney disease (CMS/HCC) She is now amenable to seeing A space physicist. Counselled on the importance of this Orders: Ambulatory referral to Nephrology; Future Advance Care Planning Advance care planning is the process of planning for future medical care in case you are unable to make your own medical decisions. It involves choosing a health care artist's representative and reviewing future health care directives. The patient does have advance directives and/or surrogate decision maker. Advance directives reviewed and/or discussed: MOLST/ POLST (Medical or Physician orders for Life-Sustaining Treatment) MOLST and HCP forms provided. She will bring completed forms to next visit The complexity of medical decision making for this patient's transitional care is moderate. As part of the TCM, I have: Reviewed discharge information, I.e.: discharge summary or [id number] documents, Reviewed the patient's need for, or follow-up on, diagnostic tests and treatments,Interacted with other health associate director career services who may assume or reassume care of the patient's system-specific problems, Educated the patient, family, guardian, or caregiver, and Established or re-establish referrals and arrange needed community resources Over 50 mins spent on this encounter reviewing discharge records, providing information to patient and caregiver and placing orders/ referrals and next steps for management Markus Hopper MD ADULT MEDICINE [address] Dept: [phone] Dept documented in this encounter Plan of Treatment Upcoming Encounters Date Type Department Care Team (Late st Contact Info) Description 12/20/2024 2:15 PM EST Appointment Radiology Department [address] [phone] 01/03/2025 12:30 PM EST Office Visit Adult Medicine [address] [phone] Markus Hopper MD [address] [place] [address] 01/21/2025 11:00 AM EDT Ancillary Procedure [facility] [address] [place] [address] [place] [phone] 02/11/2025 3:45 PM EDT Office Visit Orthopedic Surgery - [place] 250 175 [facility] 250 [place] [phone] Placido Marinelli, DPFrancine 175 [facility] 250 [place] [address] Scheduled Orders Name Type Priority Associated Diagnoses Orde r Schedule Transthoracic echocardiogram (TTE) complete with PRN contrast, bubble, strain, and 3D order panel Echocardiography Routine Ischemic cardiomyopathy 1 Occurrences starting 11/11/2024 until 11/11/2025 US Head Neck Soft Tissue Imaging Routine Thyroid condition Expected: 11/12/2024, Expires: 11/12/2025 Scheduled Referrals Name Type Priority Associated Diagnoses Orde r Schedule Ambulatory referral to Neurology Outpatient Referral Routine Mild vascular dementia without behavioral disturbance, psychotic disturbance, mood disturbance, or anxiety (CMS/HCC) 1 Occurrences starting 11/11/2024 until 11/11/2025 Ambulatory referral to Cardiology Outpatient Referral Routine Ischemic cardiomyopathy 1 Occurrences starting 11/11/2024 until 11/11/2025 Ambulatory referral to Nephrology Outpatient Referral Routine Stage 3b chronic kidney disease (CMS/HCC) 1 Occurrences starting 11/11/2024 until 11/11/2025 Ambulatory referral to Gastroenterology Outpatient Referral Routine Colitis Expected: 11/12/2024, Expires: 11/12/2025 documented as of this encounter Results * XR Knee 4+ Views Left (11/11/2024 12:25 PM EST) Anatomical Region Laterality Modality Lower Extremities, Knee Left Radiogra phic Imaging 11/11/2024 5:43 PM EST Impressions 11/11/2024 5:43 PM EST No fracture or dislocation. -------- FINAL REPORT -------- Dictated By: Dakota Miranda Dictated Date: 11/11/2024 17:43 ET Assigned Physician: Dakota Miranda Reviewed and Electronically Signed By: Dakota Miranda Signed Date: 11/11/2024 17:43 ET Workstation ID: [id number] Transcribed By: Self Edit Transcribed Date: 11/11/2024 [...] Signed Date: 11/11/2024 17:43 ET Workstation ID: [id number] Transcribed By: Self Edit Transcribed Date: 11/11/2024 17:43 ET Markus Hopper MD IMG XR PROCEDURE S Final Result * Thyroid stimulating hormone with reflex to free t4 and free t3 (11/11/2024 12:01 PM EST) [facility] TSH 0.61 0.40 - 4.00 mcIU/mL LAB CHEMISTRY METHOD 11/15/2024 10:54 AM EST [facility] Blood Venous blood specimen / Unknown Venipuncture / Unknown 11/11/2024 12:01 PM EST 11/11/2024 12:01 PM EST Markus Hopper MD LAB BLOOD ORDERA BLES Final Result [facility] [address] [place] [address], [place] [phone] * (ABNORMAL) Lipase (11/11/2024 12:01 PM EST) [facility] Lipase 87(H) 13 - 75 unit/L LAB CHEMISTRY METHOD 11/11/2024 4:35 PM EST [facility] Blood Venous blood specimen / Unknown Venipuncture / Unknown 11/11/2024 12:01 PM EST 11/11/2024 12:01 PM EST Markus Hopper MD LAB BLOOD ORDERA BLES Final Result Performing Organization Address City/[facility]/ZIP Co de Phone Number [facility] [address] [place] [address], [place] [phone] * (ABNORMAL) B-type natriuretic peptide (11/11/2024 12:01 PM EST) Pathologist [facility] BNP 158(H) <=100 pcg/mL LAB CHEMISTRY METHOD 11/11/2024 3:43 PM EST [facility] Blood Venous blood specimen / Unknown Venipuncture / Unknown 11/11/2024 12:01 PM EST 11/11/2024 12:01 PM EST Markus Hopper MD LAB BLOOD ORDERA BLES Final Result Performing Organization Address [facility]/ZIP Co de Phone Number [facility] [address] [place] [address], [place] [phone] * (ABNORMAL) Comprehensive metabolic panel (11/11/2024 12:01 PM EST) Pathologist [facility] Sodium 141 133 - 145 mmol/L LAB CHEMISTRY METHOD 11/11/2024 4:35 PM EST [facility] Potassium 4.8 3.5 - 5.5 mmol/L LAB CHEMISTRY METHOD 11/11/2024 4:35 PM EST [facility] Chloride 111(H) 96 - 110 mmol/L LAB CHEMISTRY METHOD 11/11/2024 4:35 PM EST [facility] CO2 20(L) 21 - 32 mmol/L LAB CHEMISTRY METHOD 11/11/2024 4:35 PM [facility] Anion Gap 10 3 - 11 LAB CHEMISTRY METHOD 11/11/2024 4:35 PM [facility] Glucose 96 70 - 100 mg/dL LAB CHEMISTRY METHOD 11/11/2024 4:35 PM [facility] BUN 31(H) 5 - 25 mg/dL LAB CHEMISTRY METHOD 11/11/2024 4:35 PM [facility] Creatinine 1.66(H) 0.50 - 1.10 mg/dL LAB CHEMISTRY METHOD 11/11/2024 4:35 PM [facility] eGFR 30(L) >=60 mL/min/1. 73m2 LAB CHEMISTRY METHOD 11/11/2024 4:35 PM [facility] Comment:Calculation based on the??Chronic Kidney Disease Epidemiology Collaboration (CKD-EPI) equation refit??without adjustment for race. BUN/Creatinine Ratio 18.7 LAB CHEMISTRY METHOD 11/11/2024 4:35 PM [facility] Calcium 9.0 8.5 - 10.5 mg/dL LAB CHEMISTRY METHOD 11/11/2024 4:35 PM [facility] AST (SGOT) 21 10 - 42 unit/L LAB CHEMISTRY METHOD 11/11/2024 4:35 PM [facility] ALT (SGPT) 23 10 - 60 unit/L LAB CHEMISTRY METHOD 11/11/2024 4:35 PM [facility] Alkaline Phosphatase 93 42 - 121 unit/L LAB CHEMISTRY METHOD 11/11/2024 4:35 PM [facility] Total Protein 6.9 6.0 - 8.0 g/dL LAB CHEMISTRY METHOD 11/11/2024 4:35 PM [facility] Albumin 3.7 3.2 - 5.0 g/dL LAB CHEMISTRY METHOD 11/11/2024 4:35 PM [facility] Total Bilirubin 0.3 0.0 - 1.4 mg/dL LAB CHEMISTRY METHOD 11/11/2024 4:35 PM EST [facility] Blood Venous blood specimen / Unknown Venipuncture / Unknown 11/11/2024 12:01 PM EST 11/11/2024 12:01 PM EST Markus Hopper MD LAB BLOOD ORDERA BLES Final Result [facility] [address] [place] [address], documented in this encounter Visit Diagnoses Diagnosis Hospital discharge follow-up- Primary Other follow-up examination Colitis Other and unspecified noninfectious gastroenteritis and colitis Normocytic anemia Unspecified anemia History of MS (myocardial infarction) Old myocardial infarction Primary hypertension Unspecified essential hypertension Ischemic cardiomyopathy Other specified forms of chronic ischemic heart disease Mild vascular dementia without behavioral disturbance, psychotic disturbance, mood disturbance, or anxiety (CMS/HCC) Elevated lipase Acute pain of left knee Leg swelling Swelling of limb Thyroid condition Unspecified disorder of thyroid Stage 3b chronic kidney disease (CMS/HCC) Acute pain of left knee documented in this encounter Discontinued Medications Medication Sig Discontinue Reason Start Date End Da te losartan (COZAAR) 100 mg tablet TAKE 1 TABLET BY MOUTH EVERY DAY 06/24/2024 11/11/2024 amLODIPine (NORVASC) 5 mg tablet Take 1 Tablet by mouth daily. Therapy completed 01/19/2024 11/11/2024 fluticasone propionate (FLONASE) 50 mcg/actuation nasal spray USE 1 SPRAY INTO EACH NOSTRIL TWICE A DAY Therapy completed 11/09/2024 11/11/2024 documented as of this encounter Orders General Supply Count Last Ordered Date First Or dered Date COMPRESSION STOCKINGS 1 11/11/2024 documented in this encounter Care Teams Securities Vault Supervisor Relationship Specialty Start Date End Date Markus Hopper MD [address] [place] [id number] PCP - General 12/23/22 documented as of this encounter
--- OUTSIDE RECORDS SUMMARY | 2024-12-08 09:37 | XMS_ITS | Clinical Summary ---
Author Organization [facility] Address [address] [place] [address] Care Team Providers Care Service Superintendent Name Role Phone Unavailable Primary Care Provider Unavailabl e Social History Tobacco Use Types Packs/Day Years Used Date Smoking Tobacco: Never Assessed Sex and Gender Information Value Date Recorded Sex Assigned at Not on file Gender Identity Not on file Sexual Orientation Not on file Plan of Treatment Not on file
--- OUTSIDE RECORDS SUMMARY | 2024-12-08 09:37 | XMS_ITS | Encounter Summary ---
Author Organization [facility] Address [address] [place] [address] Care Team Providers Care Deck Molder Name Role Phone Markus Hopper MD Primary Care Pr ovider Reason for Visit * Reason Comments HOME HEALTH CERT Encounter Details Date Type Department Care Team ([facility] Contact Info) Description 11/15/2024 Billing Patient Not Present Adult Medicine [address] [phone] Markus Hopper MD [address] [place] [phone] Dehydration (Primary Dx); Unspecified injury of head, subsequent encounter; Hypertensive chronic kidney disease with stage 1 through stage 4 chronic kidney disease, or unspecified chronic kidney disease; Chronic kidney disease, stage 4 (severe) (CMS/HCC); Hyperlipidemia, unspecified hyperlipidemia type; Atherosclerosis of algaaciq coronary artery without angina pectoris, unspecified whether algaaciq or transplanted heart; Old myocardial infarction; Gastro-esophageal reflux disease without esophagitis; Other spondylosis, cervical region; Age-related osteoporosis without current pathological fracture; Fall on same level from slipping, tripping and stumbling without subsequent striking against object, subsequent encounter; Personal history of nicotine dependence; residential (current) use of aspirin Social History Tobacco Use Types Packs/Day Years [...] as of this encounter Progress Notes * Wilma Celaya MA - 11/15/2024 2:24 PM EST Start of Care Date: 08/27/2024 Date of certification period: 08/27/2024-10/25/2024 Date of service = signature date 09/23/2024 Hospice patient: NO Home Care Agency: [address] [address] PHONE # [phone] FAX # [phone] Recertification Code [id number] Initial Code G0180 documented in this encounter Plan of Treatment Upcoming Encounters Date Type Department Care Team (Late st Contact Info) Description 12/20/2024 2:15 PM EST Appointment Radiology Department [address] [phone] 01/03/2025 12:30 PM EST Office Visit Adult Medicine [address] [phone] Markus Hopper MD [address] [place] [address] 01/21/2025 11:00 AM EDT Ancillary Procedure [facility] 101 300 [facility] [place] [address] [place] [address] 02/11/2025 3:45 PM EDT Office Visit Orthopedic Surgery - [place] [address] [phone] Placido Marinelli, DPM [address] [address] documented as of this encounter Visit Diagnoses Diagnosis Dehydration- Primary Unspecified injury of head, subsequent encounter Hypertensive chronic kidney disease with stage 1 through stage 4 chronic kidney disease, or unspecified chronic kidney disease Chronic kidney disease, stage 4 (severe) ([facility]) Hyperlipidemia, unspecified hyperlipidemia type Atherosclerosis of algaaciq coronary artery without angina pectoris, unspecified whether algaaciq or transplanted heart Old myocardial infarction Gastro-esophageal reflux disease without esophagitis Other spondylosis, cervical region Age-related osteoporosis without current pathological fracture Fall on same level from slipping, tripping and stumbling without subsequent striking against object, subsequent encounter Personal history of nicotine dependence intermediate frame tender (current) use of aspirin documented in this encounter Care Teams Deck Molder Relationship Specialty Start Date End Date Markus Hopper MD [address] [place] [address] PCP - General 12/23/22 documented as of this encounter
--- OUTSIDE RECORDS SUMMARY | 2024-12-08 09:37 | XMS_ITS | Clinical Summary ---
Author Organization [facility], Address [address] [place] [address] [place] [address] Phone Care Team Providers Care Cable Rigger Name Role Phone Markus Hopper Primary Care Provider Social History Tobacco Use Types Packs/Day Years Used Date Smoking Tobacco: Never Assessed Comments Unknown Sex and Gender Information Value Date Recorded Sex Assigned at Not on file Legal Sex Female 2:40 PM EDT Gender Identity Not on file Sexual Orientation Not on file Plan of Treatment Health Maintenance Due Date Last Done Comments Pneumococcal Vaccine: 65+ Ye ars (1 of 1 - PCV) 01/26/2005 Influenza Vaccine (#1) 2024 Hepatitis B Vaccine Aged Out No longe r eligible based on patient's age to complete this topic Insurance ., [address] [place] [address] MEDICARE , [address] [place] [id number] , [address] [place] [address] Care Teams Cable Rigger Relationship Specialty Start Date End Date Markus Hopper PCP - General 07/26/23
--- OUTSIDE RECORDS SUMMARY | 2024-12-08 09:37 | XMS_ITS | Encounter Summary ---
Author Organization [facility], Address [address] [place] [address] Phone Care Team Providers Care Employment Instructional Associate Name Role Phone Markus Hopper Primary Care Provider [phone] Encounter Details Date Type Department Care Team (Late st Contact Info) Description 07/26/2023 Documentation Only [facility], [address] [place] [address] Markus Hopper [address] [place] [phone] Social History Tobacco Use Types Packs/Day Years Used Date Smoking Tobacco: Never Assessed Comments Unknown Sex and Gender Information Value Date Recorded Sex Assigned at Not on file Legal Sex Female 2:40 PM EDT Gender Identity Not on file Sexual Orientation Not on file documented as of this encounter Plan of Treatment Not on file documented as of this encounter Visit Diagnoses Not on filedocumented in this encounter Care Teams Employment Instructional Associate Relationship Specialty Start Date End Date Markus Hopper PCP - General 07/26/23 documented as of this encounter
--- OUTSIDE RECORDS SUMMARY | 2024-12-08 09:37 | XMS_ITS | Encounter Summary ---
Author Organization [facility] Address [address] [place] [address] Care Team Providers Care Belt Glass Sander Name Role Phone Makrus Hopper MD Primary Care Pr ovider Reason for Visit * Reason Comments Fungus * Consultation (Routine) - Closed Specialty Diagnoses / Procedures Referred By Atiya padron Referred To Contact Podiatry Diagnoses Onychomycosis Hyperkeratosis of nail Markus Hopper MD [address] [place] [address] Phone: tel: fax: Referral ID Status Reason Start Date Expiration Date V isits Requested Visits Authorized [id number] Closed Consult and Treat 09/02/2024 09/02/2025 1 1 Encounter Details Date Type Department Care Team ([facility] st Contact Info) Description 11/13/2024 2:15 PM EST Consult Orthopedic Surgery - [place] [address] [phone] Placido Marinelli, DPFrancine [address] [address] Dermatophytosis of nail (Primary Dx); Onychomycosis; Hyperkeratosis of nail; Acquired hammer toe of right foot; Hammer toe of left foot; Pain in toe of right foot; Pain in toe of left foot; Tinea pedis of both feet; Difficulty walking; Bilateral femoral artery stenosis (CMS/HCC) Social History Tobacco Use Types Packs/Day [...] Sign Reading Time Taken Comments Blood Pressure - - Pulse - - Temperature - - Respiratory Rate - - Oxygen Saturation - - Inhaled Oxygen Concentration - - Weight 35.8 kg (79 lb) 11/13/2024 2:26 PM EST Height - - Body Mass Index 17.1 11/11/2024 10:42 AM EST documented in this encounter Progress Notes * Placido Marinelli DPM - 11/13/2024 2:15 PM EST Last PCP visit:Referring MD: Markus Hopper*11/07/2024 IDENTIFIER: fidelina Finch is a 84 y.o. year old female who presents for consultation. CC: Foot pain HPI: Patient presents today complaining of pain in her feet she suffers from cognitive deficits and dementia presents today with her daughter present has severely elongated painful thickened nails has itchy skin of both feet with worsening fungal infection of both feet patient states that it is with they think it is they have not tried any therapy they first found out about it after she came from the rehab facility and jail with a diagnosis of dementia patient daughter does note that she hasdifficulty walking secondary to pain discomfort in her feet ROS: GENERAL: Pt denies nausea, fever, vomiting, chills, or shortness of breath. Pt in NAD. CARDIOLOGY: pt denies chest pain, palpitations LUNGS: pt denies shortness of breath MUSCULOSKELETAL: See HPI, otherwise no joint pain or swelling, back pain, or muscle pain. SKIN: see HPI, otherwise no lesions, rash or itching NEURO: No persistent headache, weakness or numbness The remainder of the review of systems is noncontributory PAST MEDICAL HISTORY: Patient Active Problem List Diagnosis CAD (coronary artery disease) Aneurysm of middle cerebral artery Myocardial infarction (CMS/HCC) Hypertension Calculus of kidney CKD (chronic kidney disease) stage 3, GFR 30-59 ml/min (CMS/HCC) Distal radial fracture Diverticulitis of colon without hemorrhage Dyslipidemia Gastroesophageal reflux disease History of [place] (myocardial infarction) IBS (irritable bowel syndrome) Osteoporosis Prediabetes Sebaceous cyst Senile osteoporosis Sensorineural hearing loss (SNHL) of both ears Underweight Unspecified sinusitis (chronic) Osteoarthritis of cervical spine with myelopathy Normocytic anemia Mild vascular dementia without behavioral disturbance, psychotic disturbance, mood disturbance, or anxiety (CMS/HCC) Atherosclerosis of both carotid arteries SOCIAL HISTORY: Social History Tobacco Use Smoking status: Former Current packs/day: 0.00 Average packs/day: 0.1 packs/day for 12.0 years (1.2 ttl pk-yrs) Types: Cigarettes Start date: 10/30/1955 Quit date: 10/30/1967 Years since quittin.0 Smokeless tobacco: Never Substance Use Topics Alcohol use: No ACTIVE MEDICATIONS: No outpatient medications have been marked as taking for the 11/13/24 encounter (Consult) with Placido Marinelli DPM. ALLERGIES: Allergies Allergen Reactions Lorazepam Agitation, confusion Nitrofurantoin Hives PHYSICAL EXAM: Visit Vitals Wt (!) 35.8 kg (79 lb) BMI 17.10 kg/m?? Smoking Status Former BSA 1.21 m?? PODIATRIC EXAMINATION: GENERAL: Patient appears well nourished, with NAD. VASCULAR: Dorsalis pedis pulses are 1/4 bilaterally and Posterior tibial pulses are 0/4 bilaterally. Capillary filling time within normal limits the digits. No pallor on elevation or rubor on dependency. Positive hair growth. No varicosities. Denies rest pain or claudication pain. NEUROLOGICAL: Sharp/dull sensation intact, protective sensation intact 10/10 with 5.07 semmes rosetta bilaterally, vibratory sensation with tuning fork intact to the tibial tuberosity. ORTHOPEDIC: Good muscle strength 5/5 of all flexors and extensors. Dorsi flexion of ankle ,10 degrees, plantar flexion WNL. No muscle atrophy. DERMATOLOGICAL:. Toenails: Left Toenail(s) 1-5: Crumbling upon debridement, subungual debris, discoloration, dystrophy, elongation, mycotic appearance, onychomycosis, pain and thickening. Right Toenail(s) 1-5: Crumbling upon debridement, subungual debris, discoloration, dystrophy, elongation, mycotic appearance, onychomycosis, pain and thickening. Annular scaling bilateral feet moccasin distribution Skin thinning texture shiny appearance diffuse hyperpigmentation bilaterally pedal hair decreased BIOMECHANICS: Ankle ROM WNL, STJ ROM wnl, MTJ ROM wnl, 1st MPJ ROM wnl. Hammertoe contractures 2-5 bilateral rigid IMAGING: IMPRESSION: 1. Dermatophytosis of nail 2. Onychomycosis 3. Hyperkeratosis of nail 4. Acquired hammer toe of right foot 5. Hammer toe of left foot 6. Pain in toe of right foot 7. Pain in toe of left foot 8. Tinea pedis of both feet 9. Difficulty walking 10. Bilateral femoral artery stenosis (CMS/HCC) PLAN: Pt was seen and examined, history reviewed. Clotrimazole prescribed Other treatment options were discussed and reviewed Pedal deformities were discussed reviewed recommend accommodative shoe gear wider shoe gear shoes that have mesh silicone toe sleeves padding and tubular gauze Follow-up in 1 to 3 months Debridement of mycotic toenails 6-10: Verbal informed consent was obtained from the patient. Greater than 6 nails were aseptically debrided in thickness and length with nail nippers Placido Marinelli DPM documented in this encounter Plan of Treatment Upcoming Encounters Date Type Department Care Team (Late st Contact Info) Description 12/20/2024 2:15 PM EST Appointment Radiology Department - [address] [phone] 01/03/2025 12:30 PM EST Office Visit Adult Medicine [address] [phone] Markus Hopper MD [address] [place] [address] 01/21/2025 11:00 AM EDT Ancillary Procedure [facility] 101 300 [facility] 101 [place] [address] 02/11/2025 3:45 PM EDT Office Visit Orthopedic Surgery - [place] 250 175 [facility] [address] [place] [phone] Placido Marinelli, DPM [address] [address] documented as of this encounter Visit Diagnoses Diagnosis Dermatophytosis of nail- Primary Onychomycosis Dermatophytosis of nail Hyperkeratosis of nail Acquired hammer toe of right foot Hammer toe of left foot Pain in toe of right foot Pain in soft tissues of limb Pain in toe of left foot Pain in soft tissues of limb Tinea pedis of both feet Difficulty walking Difficulty in walking Bilateral femoral artery stenosis (CMS/HCC) Stricture of artery documented in this encounter Orders Outpatient Referral Count Last Ordered Date Fir st Ordered Date AMB REFERRAL TO PODIATRY 1 11/13/2024 documented in this encounter Care Teams Belt Glass Sander Relationship Specialty Start Date End Date Markus Hopper MD [address] [place] [address] PCP - General 12/23/22 documented as of this encounter
--- OUTSIDE RECORDS SUMMARY | 2024-12-08 09:37 | XMS_ITS ---
Author Organization [address] Address [address] [place] [phone] Phone Care Team Providers Care Electronic Warfare Operator Name Role Phone Markus Hopper MD Primary Care Pr ovid Transitional Care Management Status:Closed (Closed) Start date:10/26/2024 Enrollment date:10/26/2024 Enrollment reason:Identified using hospital discharge data End date:11/27/2024 Close reason:Completed program Continued Care and Services Coordination
--- OUTSIDE RECORDS SUMMARY | 2024-12-08 09:37 | XMS_ITS | Clinical Summary ---
Author Organization [address] Address [address] [place] [phone] Phone Care Team Providers Care Sanitary Chemist Name Role Phone Markus Hopper MD Primary Care Pr ovider Allergies Active Allergy Reactions Criticality Noted Date Comments Lorazepam 10/28/2024 Agitation, confusion Nitrofurantoin Hives 10/17/2005 Medications Vitamin C tablet Take 1 Tablet by mouth daily. Active aspirin 81 mg EC tablet Take 1 Tab by mouth daily. 06/15/20 11 Active cholecalciferol (VITAMIN D-3) 25 mcg (1,000 unit) capsule None Entered Act val metoprolol tartrate (LOPRESSOR) 50 mg tablet TAKE 1 TABLET BY MOUTH TWICE A DAY 06/24/20 24 Active triamcinolone (KENALOG) 0.1 % ointment Apply small amounts to affected area every 12 hours. Do not use for more than 14 days at a time 01/19/20 24 025 Active nutritional drink (Ensure MAX Protein) liquid Take 1 Bottle by mouth 3 times daily (with meals). 01/19/20 24 Active acetaminophen (Tylenol 8 Hour) 650 mg 8 hr tablet Take 1 tablet (650 mg total) by mouth every 8 (eight) hours if needed for mild pain. Do not crush, chew, or split. 180 tablet 09/02/20 24 Active famotidine (Pepcid) 20 mg tablet Take 1 tablet (20 mg total) by mouth 2 (two) times a day if needed for heartburn. 180 each 1 09/02/20 24 025 Active atorvastatin (LIPITOR) 80 mg tabletIndicatio ns:Atherosclero tic heart disease of [place] coronary artery without angina pectoris,Hyperl ipidemia, unspecified TAKE 1 TABLET BY MOUTH EVERY DAY 90 tablet 1 12/04/19 25 Active losartan (Cozaar) 50 mg tabletIndicatio ns:Primary hypertension Take 1 tablet (50 mg total) by mouth 1 (one) time each day. 90 each 1 12/02/19 25 025 Active amLODIPine (NORVASC) 5 mg tablet Take 1 Tablet by mouth daily. 01/19/20 24 025 Discontinued(T herapy completed) atorvastatin (LIPITOR) 80 mg tablet Take 1 Tablet by mouth daily. 01/19/20 24 025 Discontinued losartan (COZAAR) 100 mg tablet TAKE 1 TABLET BY MOUTH EVERY DAY 06/24/20 24 025 Discontinued fluticasone propionate (FLONASE) 50 mcg/actuation nasal spray Administer 1 spray into each nostril 2 (two) times a day. Shake gently. Before first use, prime pump. After use, clean tip and replace cap. 16 g 09/02/20 24 025 Discontinued fluticasone propionate (FLONASE) 50 mcg/actuation nasal spray USE 1 SPRAY INTO EACH NOSTRIL TWICE A DAY 48 mL 1 11/09/19 25 025 Discontinued(T herapy completed) losartan (Cozaar) 25 mg tabletIndicatio ns:Primary hypertension Take 1 tablet (25 mg total) by mouth at bedtime. 90 each 1 11/11/19 25 025 Discontinued Active Problems Problem Noted Date Diagnosed Date Osteoarthritis of cervical spine with myelopathy 09/03/2024 Normocytic anemia 09/03/2024 Assessment & Plan (11/12/2024 8:18 PM EST): Likely 2/2 CKD stage 3b. 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 No evidence of acute fracture or traumatic subluxation of the cervical spine. No evidence of acute fracture of the maxillofacial bones. Moderate underlying microangiopathy and generalized cerebral volume loss. Chronic lacunar infarcts in the right sided deep nuclei. Assessment & Plan (11/12/2024 8:18 PM EST): Likely due to underlying Moderate underlying microangiopathy and generalized cerebral volume loss. Referred to neurology Orders: Ambulatory referral to Neurology; Future Atherosclerosis of both carotid arteries 024 Sensorineural hearing loss (SNHL) of both ears 0 01/20/2024 Prediabetes 07/17/2023 Underweight 07/17/2023 Gastroesophageal reflux disease 05/05/2023 History of VA (myocardial infarction) 05/23/2022 Overview (08/26/2024): Hx 2 stents Assessment & Plan (11/12/2024 8:18 PM EST): Continue aspirin and atorvastatin 80mg IBS (irritable bowel syndrome) 11/06/2020 Aneurysm of middle cerebral artery 12/14/2018 CKD (chronic kidney disease) stage 3, GFR 30-59 ml/min 10/14/2014 Overview (08/26/2024): GFR 43 on 07/24/14. Assessment & Plan (11/12/2024 8:18 PM EST): She is now amenable to seeing A byproduct engineer. Counselled on the importance of this Orders: Ambulatory referral to Nephrology; Future Osteoporosis 09/18/2013 Sebaceous cyst 07/03/2012 CAD (coronary artery disease) 11/16/2011 Dyslipidemia 11/16/2011 Myocardial infarction 06/23/2011 Overview (08/26/2024): 2 stents; 06/09 Distal radial fracture 08/10/2010 Overview (08/26/2024): Mindess Calculus of kidney 10/02/2006 Diverticulitis of colon without hemorrhage 10/02 Senile osteoporosis 10/02/2006 Unspecified sinusitis (chronic) 10/02/2006 Overview (08/26/2024): IMO update Hypertension 08/03/2006 Assessment & Plan (11/12/2024 8:18 PM EST): BP today is stable but labile and mostly elevated at home. Goal BP is < 130/80. She will continue metoprolol 50mg BID and start decreased dose of losartan Monitor BP at home Report readings via [employer] after a month to determine need for medication adjustment Orders: losartan (Cozaar) 25 mg tablet; Take 1 tablet (25 mg total) by mouth at bedtime. Comprehensive metabolic panel; Future Encounters Date Type Department Care Team Description 12/02/2024 Telephone Adult Medicine [address] [phone] Markus Hopper MD 12/02/2024 Telephone Adult Medicine [address] [phone] Markus Hopper MD Hypertension 11/15/2024 Billing Patient Not Present Adult Medicine [address] [phone] Markus Hopper MD Dehydration (Primary Dx); Unspecified injury of head, subsequent encounter; Hypertensive chronic kidney disease with stage 1 through stage 4 chronic kidney disease, or unspecified chronic kidney disease; Chronic kidney disease, stage 4 (severe) (CMS/HCC); Hyperlipidemia, unspecified hyperlipidemia type; Atherosclerosis of [place] coronary artery without angina pectoris, unspecified whether [place] or transplanted heart; Old myocardial infarction; Gastro-esophageal reflux disease without esophagitis; Other spondylosis, cervical region; Age-related osteoporosis without current pathological fracture; Fall on same level from slipping, tripping and stumbling without subsequent striking against object, subsequent encounter; Personal history of nicotine dependence; residential (current) use of aspirin 11/13/2024 2:15 PM EST Consult Orthopedic Surgery - [address] [phone] Placido Marinelli DPM Dermatophytosis of nail (Primary Dx); Onychomycosis; Hyperkeratosis of nail; Acquired hammer toe of right foot; Hammer toe of left foot; Pain in toe of right foot; Pain in toe of left foot; Tinea pedis of both feet; Difficulty walking; Bilateral femoral artery stenosis (CMS/HCC) 11/11/2024 12:12 PM EST - 11/11/2024 11:59 PM EST Hospital Encounter [address] [phone] Acute pain of left knee Discharge Disposition: Home or Self Care 11/11/2024 10:30 AM EST Office Visit Adult Medicine [address] [phone] Markus Hopper MD Hospital discharge follow-up (Primary Dx); Colitis; Normocytic anemia; History of VA (myocardial infarction); Primary hypertension; Ischemic cardiomyopathy; Mild vascular dementia without behavioral disturbance, psychotic disturbance, mood disturbance, or anxiety ([facility]/HCC); Elevated lipase; Acute pain of left knee; Leg swelling; Thyroid condition; Stage 3b chronic kidney disease ([facility]/HCC) 10/31/2024 Telephone Adult Medicine [address] [phone] Markus Hopper MD Hypertension (See previous encounter 10-31-24 8:48am) 10/31/2024 Telephone Adult Medicine [address] [phone] Markus Hopper MD Hypertension 10/18/2024 Telephone Adult Medicine [address] [phone] Ezio Kern LPN Hospital Follow-up 10/14/2024 Telephone Adult [address] [phone] Lydia Stephens RN 10/08/[address] [phone] Markus Hopper MD provider call back 10/07/2024 Telephone Adult [address] [phone] Ezio Kern LPN vna from Last 3 Months Immunizations Name Administration Dates Next Due Pneumococcal polysaccharide 23 valent (Pneumovax 23) 2yo and older 08/10/2010 Surgical History Surgery Date Site/Laterality Comments APPENDECTOMY PROCEDURE: UT APPENDECTOMY OTHER SURGICAL HISTORY 02/06/13 PROCEDURE: RENAL ARTERY DUPLEX; COMMENT: Normal Medical History Medical History Date Comments Calculus of kidney 10/02/2006 DX:Calculus o f kidney Senile osteoporosis 10/02/2006 DX:Senile os teoporosis Diverticulosis of colon (wit hout mention of hemorrhage) 10/02/2006 DX:Diverticulosis of colon ( without mention of hemorrhage) Essential hypertension, benign 08/03/2006 D X:Essential hypertension, benign Personal history of colonic polyps 10/02/2006 DX:Personal history of colonic polyps Distal radial fracture 08/10/2010 DX:Distal radial fracture Osteoporosis 09/18/2013 DX:Osteoporosis Family History Medical History Relation Name Comments Other: dvt Father Other: bleeding ulcers Mother Relation Name Status Comments Father Mother Social History Tobacco Use Types Packs/Day Years [...] on file Sexual Orientation Not on file Obstetrics History Last Filed Vital Signs Vital Sign Reading Time Taken Comments Blood Pressure 135/80 11/11/2024 10:42 AM EST Pulse 80 11/11/2024 10:42 AM EST Temperature 36.4 ??C (97.5 ??F) 11/11/2024 10:[address] Respiratory Rate 15 11/11/2024 10:42 AM EST Oxygen Saturation - - Inhaled Oxygen Concentration - - Weight 35.8 kg (79 lb) 11/13/2024 2:26 PM EST Height 144.8 cm (4' 9 ) 11/11/2024 10:42 AM EST Body Mass Index 17.1 11/11/2024 10:42 AM EST Plan of Treatment Upcoming Encounters Date Type Department Care Team (Late st Contact Info) Description 12/20/2024 2:15 PM EST Appointment Radiology Department - [address] [phone] 01/03/2025 12:30 PM EST Office Visit Adult Medicine [address] [phone] Markus Hopper MD [address] [place] [phone] 01/21/2025 11:00 AM EDT Ancillary Procedure [facility] [address] [facility] [address] [place] [phone] 02/11/2025 3:45 PM EDT Office Visit Orthopedic Surgery - [place] [address] [phone] Placido Marinelli DPFrancine [address] [phone] Health Maintenance Due Date Last Done Comments Colorectal Cancer Screening: Stool Based Tests (FOBT/FIT) 10/08/2022 Osteoporosis Screening (Bone Density Screening) 10/08/2022 Social Influencers of Health Screening 10/08/2022 Depression Screening 01/18/2025 01/19/2024 Medicare Annual Wellness Visit 01/18/2025 01/19/2024 Falls Risk Assessment 09/02/2025 09/02/2024 RSV Immunization Patients 60+ Years Old (1 - 1-dose 75+ series) 09/03/2025 Postponed from 01/26/2015 (Patient Refused) Hypertension/CHF/CAD Annual BMP Blood Test 11/11/2025 11/11/2024, 10/24/2024, 10/14/2024, Additional history exists Cholesterol Screening (Lipid Panel) 01/22/2029 01/23/2024, 01/23/2024 Pneumococcal Vaccine: 50+ Years Discontinued 08/10/2010 COVID-19 Vaccine Discontinued DTaP,Tdap,and Td Vaccines Discontinued HIB Vaccines Aged Out No longer eligi ble based on patient's age to complete this topic HPV Vaccines Aged Out No longer eligi ble based on patient's age to complete this topic Hepatitis A Vaccines Aged Out No long er eligible based on patient's age to complete this topic Hepatitis B Vaccines Aged Out No long er eligible based on patient's age to complete this topic IPV Vaccines Aged Out No longer eligi ble based on patient's age to complete this topic Influenza Vaccine Discontinued MMR Vaccines Aged Out No longer eligi ble based on patient's age to complete this topic Meningococcal ACWY Vaccine Aged Out N o longer eligible based on patient's age to complete this topic RSV Immunization Patients Under 20 months Aged Out No longer eligible based on patient's age to complete this topic Varicella Vaccines Aged Out No longer eligible based on patient's age to complete this topic Zoster Vaccines Discontinued Procedures Procedure Name Priority Date/Time Associated Diagnosis Comments XR KNEE 4+ VIEWS LEFT Routine 11/11/2024 12:25 PM EST Acute pain of left knee THYROID STIMULATING HORMONE WITH REFLEX TO FREE T4 AND FREE T3 Routine 11/11/2024 12:01 PM EST Thyroid condition CBC WITH AUTO DIFFERENTIAL Routine 11/11/2024 12:01 PM EST Normocytic anemia CBC AND DIFFERENTIAL Routine 11/11/2024 12:01 PM EST Normocytic anemia COMPREHENSIVE METABOLIC PANEL Routine 11/11/2024 12:01 PM EST Primary hypertension B-TYPE NATRIURETIC PEPTIDE Routine 11/11/2024 12:01 PM EST Ischemic cardiomyopathy LIPASE Routine 11/11/2024 12:01 PM EST Elevated lipase LIPID PANEL Routine 01/23/2024 HM DEPRESSION SCREENING Routine 01/19/2024 from Last 3 Months or Most Recently Relevant to Health Maintenance Results * XR Knee 4+ Views Left (11/11/2024 12:25 PM EST) Anatomical Region Laterality Modality Lower Extremities, Knee Left [facility] 11/11/2024 5:43 PM EST Impressions 11/11/2024 5:43 PM EST No fracture or dislocation. -------- FINAL REPORT -------- Dictated By: Dakota Miranda Dictated Date: 11/11/2024 17:43 ET Assigned Physician: Dakota Miranda Reviewed and Electronically Signed By: Dakota Miranda Signed Date: 11/11/2024 17:43 ET Workstation ID: [id number] Transcribed By: Self Edit Transcribed Date: 11/11/2024 [...] Signed Date: 11/11/2024 17:43 ET Workstation ID: [id number] Transcribed By: Self Edit Transcribed Date: 11/11/2024 17:43 ET Markus Hopper MD IMG XR PROCEDURE S Final Result * Thyroid stimulating hormone with reflex to free t4 and free t3 (11/11/2024 12:01 PM EST) Pathologist [facility] TSH 0.61 0.40 - 4.00 mcIU/mL LAB CHEMISTRY METHOD 11/15/2024 10:54 AM [facility] Blood Venous blood specimen / Unknown Venipuncture / Unknown 11/11/2024 12:01 PM EST 11/11/2024 12:01 PM EST Markus Hopper MD LAB BLOOD ORDERA BLES Final Result [facility] [address] [place] [address], * (ABNORMAL) CBC auto differential (11/11/2024 12:01 PM EST) [facility] WBC 8.8 4.8 - 10.8 K/mcL LAB HEMETOLOGY METHOD 11/11/2024 2:29 PM [facility] RBC 3.10(L) 3.80 - 4.80 M/mcL LAB HEMETOLOGY METHOD 11/11/2024 2:29 PM [facility] Hemoglobin 9.8(L) 11.5 - 16.0 g/dL LAB HEMETOLOGY METHOD 11/11/2024 2:29 PM [facility] Hematocrit 31.9(L) 35.0 - 47.0 % LAB HEMETOLOGY METHOD 11/11/2024 2:29 PM [facility] MCV 102.6(H) 79.0 - 98.0 FL LAB HEMETOLOGY METHOD 11/11/2024 2:29 PM [facility] MCH 31.5 27.0 - 32.0 pcg LAB HEMETOLOGY METHOD 11/11/2024 2:29 PM [facility] MCHC 30.7(L) 32.0 - 37.0 g/dL LAB HEMETOLOGY METHOD 11/11/2024 2:29 PM [facility] RDW 13.3 11.0 - 15.0 % LAB HEMETOLOGY METHOD 11/11/2024 2:29 PM [facility] Platelets 347 130 - 400 K/mcL LAB HEMETOLOGY METHOD 11/11/2024 2:29 PM [facility] MPV 11.6(H) 7.0 - 11.0 FL LAB HEMETOLOGY METHOD 11/11/2024 2:29 PM [facility] NRBC 0.0 <1.0 % LAB HEMETOLOGY METHOD 11/11/2024 2:29 PM [facility] NRBC Absolute 0.00 <0.10 K/mcL LAB HEMETOLOGY METHOD 11/11/2024 2:29 PM [facility] Neutrophils Relative 65.6 % LAB HEMETOLOGY METHOD 11/11/2024 2:29 PM [facility] Lymphocytes Relative 19.6 % LAB HEMETOLOGY METHOD 11/11/2024 2:29 PM [facility] Monocytes Relative 10.4 % LAB HEMETOLOGY METHOD 11/11/2024 2:29 PM [facility] Eosinophils Relative 3.1 % LAB HEMETOLOGY METHOD 11/11/2024 2:29 PM [facility] Basophils Relative 0.8 % LAB HEMETOLOGY METHOD 11/11/2024 2:29 PM [facility] Immature Granulocytes Relative 0.5 % LAB HEMETOLOGY METHOD 11/11/2024 2:29 PM [facility] Neutrophils Absolute 5.79 1.50 - 7.00 K/mcL LAB HEMETOLOGY METHOD 11/11/2024 2:29 PM EST [facility] Lymphocytes Absolute 1.73 1.00 - 5.00 K/[facility] LAB HEMETOLOGY METHOD 11/11/2024 2:29 PM EST [facility] Monocytes Absolute 0.92 0.20 - 1.00 K/[facility] LAB HEMETOLOGY METHOD 11/11/2024 2:29 PM EST [facility] Eosinophils Absolute 0.27 0.00 - 0.50 K/[facility] LAB HEMETOLOGY METHOD 11/11/2024 2:29 PM EST [facility] Basophils Absolute 0.07 0.00 - 0.20 K/[facility] LAB HEMETOLOGY METHOD 11/11/2024 2:29 PM EST [facility] Immature Granulocytes Absolute 0.04(H) 0.00 - 0.03 K/[facility] LAB HEMETOLOGY METHOD 11/11/2024 2:29 PM EST [facility] Blood Venous blood specimen / Unknown Venipuncture / Unknown 11/11/2024 12:01 PM EST 11/11/2024 12:01 PM EST Markus Hopper MD LAB BLOOD ORDERA BLES Final Result [facility] [address] [place] [address], * (ABNORMAL) B-type natriuretic peptide (11/11/2024 12:01 PM EST) BNP 158(H) <=100 pcg/mL LAB CHEMISTRY METHOD 11/11/2024 3:43 PM EST [facility] Blood Venous blood specimen / Unknown Venipuncture / Unknown 11/11/2024 12:01 PM EST 11/11/2024 12:01 PM EST Markus Hopper MD LAB BLOOD ORDERA BLES Final Result Performing Organization Address City/[facility]/ZIP Co de Phone Number [facility] [address] [place] [address], * (ABNORMAL) Lipase (11/11/2024 12:01 PM EST) Lipase 87(H) 13 - 75 unit/L LAB CHEMISTRY METHOD 11/11/2024 4:35 PM [facility] Blood Venous blood specimen / Unknown Venipuncture / Unknown 11/11/2024 12:01 PM EST 11/11/2024 12:01 PM EST Markus Hopper MD LAB BLOOD ORDERA BLES Final Result Performing Organization Address [facility]/ZIP Co de Phone Number [facility] [address] [place] [address], [place] [phone] * (ABNORMAL) Comprehensive metabolic panel (11/11/2024 12:01 PM EST) Pathologist [facility] Sodium 141 133 - 145 mmol/L LAB CHEMISTRY METHOD 11/11/2024 4:35 PM [facility] Potassium 4.8 3.5 - 5.5 mmol/L LAB CHEMISTRY METHOD 11/11/2024 4:35 PM [facility] Chloride 111(H) 96 - 110 mmol/L LAB CHEMISTRY METHOD 11/11/2024 4:35 PM [facility] CO2 20(L) 21 - 32 mmol/L LAB CHEMISTRY METHOD 11/11/2024 4:35 PM [facility] Anion Gap 10 3 - 11 LAB CHEMISTRY METHOD 11/11/2024 4:35 PM [facility] Glucose 96 70 - 100 mg/dL LAB CHEMISTRY METHOD 11/11/2024 4:35 PM [facility] BUN 31(H) 5 - 25 mg/dL LAB CHEMISTRY METHOD 11/11/2024 4:35 PM [facility] Creatinine 1.66(H) 0.50 - 1.10 mg/dL LAB CHEMISTRY METHOD 11/11/2024 4:35 PM [facility] eGFR 30(L) >=60 mL/min/1. 73m2 LAB CHEMISTRY METHOD 11/11/2024 4:35 PM [facility] Comment:Calculation based on the??Chronic Kidney Disease Epidemiology Collaboration (CKD-EPI) equation refit??without adjustment for race. BUN/Creatinine Ratio 18.7 LAB CHEMISTRY METHOD 11/11/2024 4:35 PM [facility] Calcium 9.0 8.5 - 10.5 mg/dL LAB CHEMISTRY METHOD 11/11/2024 4:35 PM [facility] AST (SGOT) 21 10 - 42 unit/L LAB CHEMISTRY METHOD 11/11/2024 4:35 PM [facility] ALT (SGPT) 23 10 - 60 unit/L LAB CHEMISTRY METHOD 11/11/2024 4:35 PM [facility] Alkaline Phosphatase 93 42 - 121 unit/L LAB CHEMISTRY METHOD 11/11/2024 4:35 PM [facility] Total Protein 6.9 6.0 - 8.0 g/dL LAB CHEMISTRY METHOD 11/11/2024 4:35 PM [facility] Albumin 3.7 3.2 - 5.0 g/dL LAB CHEMISTRY METHOD 11/11/2024 4:35 PM [facility] Total Bilirubin 0.3 0.0 - 1.4 mg/dL LAB CHEMISTRY METHOD 11/11/2024 4:35 PM [facility] Blood Venous blood specimen / Unknown Venipuncture / Unknown 11/11/2024 12:01 PM EST 11/11/2024 12:01 PM EST Markus Hopper MD LAB BLOOD ORDERA BLES Final Result [facility] [address] [place] [address], * Lipid panel (01/23/2024) LDL/HDL Ratio 2 0 - 4 Triglycerides 93 0 - 150 mg/dL Cholesterol 147 0 - 200 mg/dL HDL 81 >=40 mg/dL LDL Cholesterol 48 0 - 100 mg/dL Blood Venous blood specimen / Unknown Historical Provider LAB BLOOD ORDERABLES Linn l Result * Depression Screening (01/19/2024) Pathologist [facility] Depression Screening Abstracted Historical Provider HEALTH MAINTENANCE Final Result from Last 3 Months or Most Recently Relevant to Health Maintenance Insurance MEDICARE Care Teams Sanitary Chemist Relationship Specialty Start Date End Date Markus Hopper MD [address] [place] [phone] PCP - General 12/23/22
[2024-12-08 12:14] VITALS: BP 164/79; PULSE 77; RESP 18; TEMP 36.6; O2SAT 100
== END 2024-12-08 12:15 | disposition home or self-care (01) ==
PROVIDERS: Emergency Provider Emergency Medicine; PCP Family Medicine
DX: S00.83XA Contusion of other part of head, initial encounter (principal); R51.9 Headache, unspecified; M54.2 Cervicalgia; W07.XXXA Fall from chair, initial encounter; Y93.9 Activity, unspecified; Y92.009 Unspecified place in unspecified non-institutional (private) residence as the place of occurrence of the external cause; Y99.8 Other external cause status; Z79.899 Other long term (current) drug therapy; Z87.891 Personal history of nicotine dependence
CPT/HCPCS: 70450; 72125; 99282; 99284

== ENCOUNTER → 2024-12-08 09:40 | Outpatient (BNV) | payer MEDICARE, SELFPAY | PROVIDERS: Emergency Provider Emergency Medicine; PCP Family Medicine; Visit Provider Radiology Diagnostic Radiology | DX: S09.90XA Unspecified injury of head, initial encounter (principal) | CPT/HCPCS: 70450; 72125 ==

== ENCOUNTER 2025-01-09 18:39 | Emergency (ER) | payer MEDICARE, SELFPAY ==
--- NOTE | ~2025-01-09 | CT_ITS ---
CLINICAL HISTORY: fall, + head strike CT cervical spine without contrast Comparison: CT/SR - CT CERVICAL SPINE WO IV CON - 12/08/24 09:47 EST Findings: Examination limited by positioning factors. Vertebral alignment is within normal limits. Multilevel disc space narrowing and endplate osteophyte formation, as well as facet hypertrophy. No acute fractures or dislocations. No acute findings on limited view of the intracranial contents. Soft tissues of the neck are normal. No consolidation or effusion at the lung apices. IMPRESSION: No acute findings. This document has been electronically signed by: Bryan Lim MD on 01/09/2025 19:59:16
--- NOTE | ~2025-01-09 | CT_ITS ---
CLINICAL HISTORY: fall, +head strike CT head without contrast Comparison: CT/SR - CT HEAD/BRAIN WO IV CON - 12/08/24 09:47 EST Findings: No intra-axial mass, midline shift, hydrocephalus, or acute hemorrhage. Mild diffuse cerebral volume loss. Mild degree of patchy low-density within the periventricular and subcortical white matter. Left parietal scalp hematoma. There is no sinus or mastoid fluid. The orbits are unremarkable. No skull fracture. IMPRESSION: 1. No acute intracranial findings. This document has been electronically signed by: Bryan Lim MD on 01/09/2025 19:58:50
[2025-01-09 18:49] VITALS: BP 171/72; PULSE 88; RESP 16; TEMP 36.5; O2SAT 100; BMI 16.5
--- NOTE | 2025-01-09 18:56 | ECG_ITS ---
Test Reason : FALL Blood Pressure : */* mmHG Vent. Rate : 103 BPM Atrial Rate : 103 BPM P-R Int : 122 ms QRS Dur : 74 ms QT Int : 328 ms P-R-T Axes : 47 11 38 degrees QTcB Int : 429 ms Sinus tachycardia Otherwise normal ECG When compared with ECG of 06-Oct-2024 06:13, Vent. rate has increased by 37 bpm Referred By: Jazzy Jean Baptiste Electronically Signed By: SOMMER DEWITT
--- NOTE | 2025-01-09 20:13 | ED_ITS ---
HPI - Fall General Chief Complaint: Fall Stated Complaint: HEAD INJURY LUMP FROM FALL Time Seen by Provider: 01/10/25 00:03 Source: patient and family Mode of arrival: ambulatory Limitations: no limitations History of Present Illness ED Provider: HPI Narrative: patient is 84 years old walks with walker lives alone family watched her on the camera apparently patient had to open the door and walked swiftly left the walker to the side to open the door and lost balance and fell backward hitting her head to the ground no loss of consciousness does have a lump on the occipital area patient is on baby aspirin Related Data Home Medications ?Medication ?Instructions ?Recorded ?Confirmed amlodipine 5 mg tablet 5 mg PO DAILY 08/22/24 10/06/24 atorvastatin 80 mg tablet 80 mg PO DAILY 08/22/24 10/06/24 losartan 100 mg tablet 100 mg PO DAILY 08/22/24 10/06/24 metoprolol tartrate 50 mg tablet 50 mg PO BID 08/22/24 10/06/24 famotidine 20 mg tablet 20 mg PO BID PRN heartburn 10/06/24 10/06/24 fluticasone propionate 50 1 spray intranasal DAILY 10/06/24 10/06/24 mcg/actuation nasal spray,suspension Allergies Allergy/AdvReac Type Severity Reaction Status Date / Time nut - unspecified [NUTS] Allergy Severe ANAPHYLAXIS Verified 01/09/25 18:53 nitrofurantoin Allergy Unknown ITCHING Verified 01/09/25 18:53 [From MACROBID] Review of Systems 2 Review of Systems: Yes all other systems are reviewed and are negative PMFSH Past Medical History Medical History Chronic anemia CKD (chronic kidney disease) stage 4, GFR 15-29 ml/min GERD (gastroesophageal reflux disease) Hyperlipidemia HTN (hypertension) Social History Social History Patient Tobacco Use Status: Former Tobacco user Smoked in Last 30 Days: No Use of substances other than those prescribed or required for medical reasons: No Advance Directives: Yes Advance Directives on File: Yes Advance Directives Date on File: 10/11/24 Do you have a plan to hurt others: No Plan service: No Physical Exam 2 Vital Signs: Vital Signs: Last Vital Signs Temp 98.6 F 01/10/25 00:34 Pulse 69 01/10/25 00:34 Resp 16 01/10/25 00:34 BP 124/79 01/10/25 00:34 Pulse Ox 96 01/10/25 00:34 O2 Del Method Room Air 01/10/25 00:34 BMI result Body Mass Index 16.5 Appearance: Alert. Oriented X3. No acute distress. Eyes: PERRLA, No Nystagmus HEENT: Pharynx normal. Oral Mucosa moist soft tissue swelling of the occipital area Neck: Normal inspection. Neck supple. no midline tenderness CVS: Normal heart rate and rhythm. Pulses normal. Respiratory: No respiratory distress. Equal air entry bilateral, no wheezing/rales/rhonchi Abdomen: Soft and nontender. Bowel sounds are present, no mass palpable, no CVA tenderness Skin: Skin warm and dry. Normal skin color. Normal skin turgor. Extremities: No lower extremity edema. No calf tenderness Neuro: Oriented X 3. No motor deficit. No sensory deficit.No cerebellar signs , cranial nerves II-XII intact Course Course Course Narrative: This is an RME: Additional HPI, ROS, PE not included below will be deferred to primary provider. RME assessment and note performed by: Jazzy Jean Baptiste PA-C This is a 84-year-old female who presents emergency department complaints of left scalp hematoma. Patient had a unwitnessed fall. Patient states that she was using her walker to walk towards the door and then fell?. She thinks that she tripped however she was unclear what had specifically happened. Patient with left scalp hematoma. Tender to palpation. She is alert and oriented, no focal deficits on examination. Plan: Labs, EKG, CT head and neck, further ER evaluation needed. Medications Administered Discontinued Medications Generic Name Dose Route Start Last Admin Trade Name Freq PRN Reason Stop Dose Admin Acetaminophen 650 mg 01/10/25 00:11 01/10/25 00:21 Acetaminophen 325 Mg Tablet PO 01/10/25 00:12 650 mg ONCE ONE Administration Medical Decision Making Medical Decision Making [facility] Narrative: patient is status post mechanical fall with minor head injury CT scan of the head and C-spine negative for acute Lab Data [facility] Lab Attestation statement: I reviewed the patient's lab results. 01/09/25 20:52 01/09/25 20:52 Labs: Lab Results 01/09/25 Range/Units 20:52 WBC 7.9 (4.8-10.8) X10*3/uL RBC 3.30 L (4.20-5.50) X10*6/uL Hgb 10.4 L (12.0-16.0) g/dl Hct 31.5 L (37.0-47.0) % MCV 95.5 (80.0-98.0) fL MCH 31.5 (27.0-33.0) pg MCHC 33.0 (31.0-35.0) g/dl RDW 14.9 (11.0-16.0) % Plt Count 311 D (160-400) X10*3/uL MPV 10.3 (9.4-12.3) fL Immature Gran % (Auto) 0.3 (0.0-0.4) % Neut % (Auto) 69.9 (45-73) % Lymph % (Auto) 17.2 L (20-40) % Swisher % (Auto) 9.8 (2-11) % Eos % (Auto) 2.4 (0-4) % Baso % (Auto) 0.4 (0-2) % Lymph # (Auto) 1.4 (1.2-4.9) X10*3/uL Swisher # (Auto) 0.8 (0.1-1.2) X10*3/uL Eos # (Auto) 0.2 (0.0-0.4) X10*3/uL Baso # (Auto) 0.0 (0.0-0.2) X10*3/uL Abs Immat Gran (auto) 0.02 (0.00-0.03) X10*3/uL Absolute Neuts (auto) 5.5 (2.0-8.3) x10*3/uL Absolute Nucleated RBC 0.000 (0.0-0.012) X10*3/uL Nucleated RBC % (auto) 0.0 (0.0-0.2) /100WBC Sodium 144 (135-145) mmol/L Potassium 5.0 (3.3-5.1) mmol/L Chloride 116 H (96-108) mmol/L Carbon Dioxide 19 L (22-29) mmol/L Anion Gap 14 (12-20) BUN 44 H (9-16) mg/dL Creatinine 1.76 H (0.5-1.4) mg/dL Estim Creat Clear Calc 13.4 Estimated GFR 28 Random Glucose 99 (60-115) mg/dL Calcium 9.4 (8.4-10.2) mg/dL Magnesium 2.2 (1.6-2.6) mg/dL Total Bilirubin 0.2 (0.0-1.0) mg/dL AST 26 (5-31) U/L ALT 21 (0-31) U/L Alkaline Phosphatase 143 H (39-117) U/L Troponin I High Sens 6.4 D (<3.5-17.0) ng/L Total Protein 7.4 (6.5-8.0) g/dL Albumin 4.1 (3.5-5.0) g/dL Independent Interpretation I performed an independent interpretation of an: CT Scan Interpretation: no intra cranial injury Radiology Impression Discussion of test interpretation with radiology: I have reviewed the radiologist's reading. Discharge Plan Discharge Clinical Impression: Fall Patient Disposition: Home, Self-Care Instructions: Fall Prevention for Older Adults (ED) Additional Instructions: care and cautions as advised your CT scan of the head and cervical spine is negative for fracture or any acute Tylenol for pain Prescriptions: No Action atorvastatin 80 mg tablet 80 mg PO DAILY amlodipine 5 mg tablet 5 mg PO DAILY metoprolol tartrate 50 mg tablet 50 mg PO BID losartan 100 mg tablet 100 mg PO DAILY famotidine 20 mg tablet 20 mg PO BID PRN (Reason: heartburn) fluticasone propionate 50 mcg/actuation spray,suspension 1 spray intranasal DAILY Interventions: ED Discharge Assessment Last Done: 01/10/25 00:34 Discharge Date/Time: 01/10/25 00:35 Print Language: Gibraltarian
--- OUTSIDE RECORDS SUMMARY | 2025-01-09 20:44 | XMS_ITS | Encounter Summary ---
Author Organization [facility] Address [address] [place] [address] Care Team Providers Care Seo Expert Name Role Phone Markus Hopper MD Primary Care Pr ovider Encounter Details Date Type Department Care Team (Late Contact Info) Description 12/25/2024 Billing Patient Not Present Adult Medicine [address] [phone] Markus Hopper MD [address] [place] [phone] Social History Tobacco Use Types Packs/Day Years [...] as of this encounter Plan of Treatment Upcoming Encounters Date Type Department Care Team (Late Contact Info) Description 01/21/2025 11:00 AM EDT Ancillary Procedure [facility] - [address] [place] [address] 01/29/2025 10:00 AM EDT Consult Adult Medicine [facility] [address] [place] [address] Markus Hopper MD [address] [place] [phone] 02/11/2025 3:45 PM EDT Office Visit Orthopedic Surgery - [place] [address] [phone] Placido Marinelli, DPM [address] [address] documented as of this encounter Visit Diagnoses Not on filedocumented in this encounter Care Teams Seo Expert Relationship Specialty Start Date End Date Markus Hopper MD [address] [place] [phone] PCP - General 12/23/22 documented as of this encounter
--- OUTSIDE RECORDS SUMMARY | 2025-01-09 20:44 | XMS_ITS | Encounter Summary ---
Author Organization [facility] Address [address] [place] [address] Care Team Providers Care Toxicology Teacher Name Role Phone Markus Hopper MD Primary Care Pr ovider Reason for Referral * Imaging (Emergency) - Authorized Specialty Diagnoses / Procedures Referred By Atiya padron Referred To Contact Diagnoses Leg swelling Procedures Vascular US duplex lower extremity venous left Markus Hopper MD [address] [place] [phone] Phone: tel: fax: [facility] Referral ID Status Reason Start Date Expiration Date V isits Requested Visits Authorized [id number] Authorized 01/03/2025 01/03/2026 1 1 Reason for Visit * Imaging (Emergency) - Authorized Specialty Diagnoses / Procedures Referred By Atiya padron Referred To Contact Diagnoses Leg swelling Procedures Vascular US duplex lower extremity venous left Markus Hopper MD [address] [place] [address] Phone: tel: fax: [facility] Referral ID Status Reason Start Date Expiration Date V isits Requested Visits Authorized [id number] Authorized 01/03/2025 01/03/2026 1 1 Encounter Details Date Type Department Care Team (Latest Contact Info) Description 01/07/2025 2:22 PM EDT - 01/07/2025 11:59 PM EDT Hospital Encounter Radiology Department - [address] [phone] Leg swelling Discharge Disposition: Home or Self Care Social [...] Take 1 Tab by mouth daily. 06/15/2011 atorvastatin (LIPITOR) 80 mg tabletIndications :Atherosclerotic heart disease of [place] coronary artery without angina pectoris,Hyperlip idemia, unspecified TAKE 1 TABLET BY MOUTH EVERY DAY 90 tablet 1 12/04/2024 cholecalciferol (VITAMIN D-3) 25 mcg (1,000 unit) capsule None Entered famotidine (Pepcid) 20 mg tablet Take 1 tablet (20 mg total) by mouth 2 (two) times a day if needed for heartburn. 180 each 1 09/02/2024 losartan (COZAAR) 100 mg tablet Take 1 tablet (100 mg total) by mouth 1 (one) time each day. 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 01/19/2024 triamcinolone (KENALOG) 0.1 % ointment Apply small amounts to affected area every 12 hours. Do not use for more than 14 days at a time 01/19/2024 Vitamin C tablet Take 1 Tablet by mouth daily. documented as of this encounter Discharge Disposition Disposition Code Departure Means Destination Home or Self Care documented in this encounter Plan of Treatment Upcoming Encounters Date Type Department Care Team (Late st Contact Info) Description 01/21/2025 11:00 AM EDT Ancillary Procedure [facility] - [facility] [address] [facility] [address] [place] [address] 01/29/2025 10:00 AM EDT Consult Adult Medicine [address] [phone] Markus Hopper MD [address] [place] [phone] 02/11/2025 3:45 PM EDT Office Visit Orthopedic Surgery - [place] [address] [phone] Placido Marinelli, DPM [address] [address] documented as of this encounter Procedures Procedure Name Priority Date/Time Associated Diagnosis Comments VAS US DUPLEX LOWER EXT VENOUS LEFT STAT 01/07/2025 2:45 PM EDT Leg swelling documented in this encounter Results * Vascular US duplex lower extremity venous left (01/07/2025 2:45 PM EDT) Anatomical Region Laterality Modality Vascular, Abdomen Ultrasound 01/07/2025 4:13 PM EDT Impressions 01/07/2025 4:15 PM EDT No ultrasound evidence of deep venous thrombus in left leg from the upper groin throughout the calf. -------- FINAL REPORT -------- Dictated By: Malika King Dictated Date: 01/07/2025 16:13 ET Assigned Physician: Malika King Reviewed and Electronically Signed By: Malika King Signed Date: 01/07/2025 16:15 ET Workstation ID: [id number] Transcribed By: Self Edit Transcribed Date: 01/07/2025 16:13 ET Narrative 01/07/2025 4:15 PM EDT VAS US DUPLEX LEFT LOWER EXT VENOUS LEFT Left LOWER EXTREMITY VENOUS ULTRASOUND. HISTORY: ??Left leg pain. TECHNIQUE: Venous ultrasound of the left legs was performed from the upper groin throughout the calf. FINDINGS: ??No echogenic thrombus was seen. ??The deep venous system throughout the left leg was compressible. ??There was normal waveform respiratory phasicity. ??There was normal augmentation of color flow and duplex Doppler wave form throughout the deep venous system during compression at the ankle. No fluid or cysts are seen in either popliteal fossa. Procedure Note Malika King MD - 01/07/2025 VAS US DUPLEX LEFT LOWER EXT VENOUS LEFT Left LOWER EXTREMITY VENOUS ULTRASOUND. HISTORY: Left leg pain. TECHNIQUE: Venous ultrasound of the left legs was performed from the uppergroin throughout the calf. FINDINGS: No echogenic thrombus was seen. The deep venous systemthroughout the left leg was compressible. There was normal waveformrespiratory phasicity. There was normal augmentation of color flow andduplex Doppler wave form throughout the deep venous system duringcompression at the ankle. No fluid or cysts are seen in either poplitealfossa. IMPRESSION: No ultrasound evidence of deep venous thrombus in left leg from the uppergroin throughout the calf. -------- FINAL REPORT -------- Dictated By: Malika King Dictated Date: 01/07/2025 16:13 ET Assigned Physician: Malika King Reviewed and Electronically Signed By: Malika King Signed Date: 01/07/2025 16:15 ET Workstation ID: [id number] Transcribed By: Self Edit Transcribed Date: 01/07/2025 16:13 ET us Markus Hopper MD CV VASCULAR PROC EDURES Final Result documented in this encounter Visit Diagnoses Diagnosis Leg swelling Swelling of limb documented in this encounter Care Teams Toxicology Teacher Relationship Specialty Start Date End Date Markus Hopper MD [address] [place] [phone] PCP - General 12/23/22 documented as of this encounter
--- OUTSIDE RECORDS SUMMARY | 2025-01-09 20:44 | XMS_ITS | Encounter Summary ---
Author Organization [facility] Address [address] [place] [address] Care Team Providers Care Procurement Agent Name Role Phone Markus Hopper MD Primary Care Pr ovid Reason for Referral * Imaging (Routine) - Authorized Specialty Diagnoses / Procedures Referred By Atiya padron Referred To Contact Radiology Diagnoses Abnormal thyroid scan Procedures US Head Neck Soft Tissue US Head Neck Soft Tissue Markus Hopper MD [address] [place] [address] Phone: tel: fax: [address] [phone] Phone: tel: Referral ID Status Reason Start Date Expiration Date V isits Requested Visits Authorized [id number] Authorized 01/03/2025 01/03/2026 1 1 * Imaging (Emergency) - Authorized Specialty Diagnoses / Procedures Referred By Atiya padron Referred To Contact Diagnoses Leg swelling Procedures Vascular US duplex lower extremity venous left Markus Hopper MD [address] [place] [address] Phone: tel: fax: [facility] Referral ID Status Reason Start Date Expiration Date V isits Requested Visits Authorized [id number] Authorized 01/03/2025 01/03/2026 1 1 Reason for Visit * Reason Comments Hypertension Encounter Details Date Type Department Care Team (Late st Contact Info) Description 01/03/2025 12:30 PM EST Office Visit Adult Medicine [facility] [address] [place] [address] Markus Hopper MD [address] [place] [address] Primary hypertension (Primary Dx); Leg swelling; Stage 3b chronic kidney disease (CMS/HCC); Normocytic anemia; Dyspnea on exertion; Abnormal thyroid scan Social History Tobacco Use Types Packs/Day Years [...] Sign Reading Time Taken Comments Blood Pressure 162/63 01/03/2025 12:33 PM EST a Pulse 66 01/03/2025 12:30 PM EST Temperature 36.3 ??C (97.4 ??F) 01/03/2025 12:[address] Respiratory Rate - - Oxygen Saturation 96% 01/03/2025 12:30 PM EST Inhaled Oxygen Concentration - - Weight 36.2 kg (79 lb 14.4 oz) 01/03/2025 12:30 PM EST Height 147.3 cm (4' 9.99 ) 01/03/2025 12:[address] Body Mass Index 16.7 01/03/2025 12:30 PM EST documented in this encounter Ordered Prescriptions Prescription Sig Dispense Quantity Refills Last Filled Start Date End Date losartan (COZAAR) 100 mg tablet Take 1 tablet (100 mg total) by mouth 1 (one) time each day. 90 each 1 01/03/2025 07/02/2025 documented in this encounter Progress Notes * Markus Hopper MD - 01/03/2025 12:30 PM ESTAssociated Problem(s): Hypertension Still poorly controlled. Will increase losartan from 50 mg to 100 mg daily. Continue metoprolol 50 mg twice daily. Given her history of CAD, her goal blood pressure is less than 130/80 * Markus Hopper MD - 01/03/2025 12:30 PM ESTAssociated Problem(s): CKD (chronic kidney disease) stage 3, GFR 30-59 ml/min ([facility]) Provided with the referral information for nephrology and her daughter is advised to call to help her schedule the appointment. Will update BMP to ensure there is no acute worsening Orders: B-type natriuretic peptide; Future * Markus Hopper MD - 01/03/2025 12:30 PM ESTAssociated Problem(s): Normocytic anemia Will update CBC to ensure stability as well as anemia panel Orders: CBC and differential; Future Iron and TIBC; Future Ferritin; Future Vitamin B12; Future * Markus Christi Hopper MD - 01/03/2025 12:30 PM EST Images from the original note were [...] Where can you learn more? Scan the youmag code or Go to [email or web address] Enter X567 in the search box to learn more about High Blood Pressure: Care Instructions. Current as of: August 22, 2023 Content Version: 14.2 ?? 2023 [facility] Anonymous You. Care instructions adapted under license by your healthcare professional. If you have questions about a medical condition or this instruction, always ask your healthcare professional. [employer] disclaims any warranty or liability for your use of this information. * Markus Hopper MD - 01/03/2025 12:30 PM EST Images from the original note were not included. Chief Complaint Concha Cheng is a 84 y.o. female presenting for Hypertension Subjective She presents today with her daughter She was last seen by me on 11/11/2024 for hospital discharge follow-up. See visit notes. Hypertension: Continues on losartan 50 mg daily and metoprolol 50 mg twice daily Initial blood pressure reading today was 156/72. 5-minute average 162/63 Home BP readings range from 159/85 to 166/84 in the morning and 153/73 to 172/81 in the evening. Her blood pressures have not been normal at home. They have persistently been elevated. Denies chest pain States she has SOB sometimes . It comes and goes. This is typically with walking or exerting herself. She has echo scheduled for 01/21/25 She quit tobacco use about 60 years ago Notes some swelling in her ankles that have been ongoing for a few weeks. She was seen by colleaguelast month for left lower extremity pain. X-rays done of the femur/knee showed no acute findings She was prescribed a Medrol Dosepak by colleague which significantly helped her pain Denies any more falls since her last visit. Her primary goal is to get her cataract surgery done which is scheduled for January. She has an appointment with me for preop in January Still with CKD stage IIIb. Pending appointment for evaluation by nephrology. Referral paperwork wasprinted so that daughter can call to schedule an appointment for her. Heterogenous hyperattenuation of the thyroid lobe. Was noted on CT scan done in the hospital. She has not completed a thyroid ultrasound which was scheduled She was referred to GI given colitis from her last hospitalization. She was scheduled for an appointment last month but did not go. She does not want to see GI at this time nor is she interested in getting any colonoscopies at this point The following portions of the patient's history were reviewed by a provider in this encounter and updated as appropriate: Allergies: She is allergic to lorazepam and nitrofurantoin. Medications: Current Outpatient Medications Medication Instructions acetaminophen (TYLENOL 8 HOUR) 650 mg, oral, Every 8 hours PRN, Do not crush, chew, or split. aspirin 81 mg EC tablet Take 1 Tab by mouth daily. atorvastatin (LIPITOR) 80 mg, oral, Daily cholecalciferol (VITAMIN D-3) 25 mcg (1,000 unit) capsule None Entered famotidine (PEPCID) 20 mg, oral, 2 times daily PRN losartan (COZAAR) 100 mg, oral, Daily metoprolol tartrate (LOPRESSOR) 50 mg tablet TAKE [...] tablet Take 1 Tablet by mouth daily. Depression Screening (PHQ2/9): Anxiety Screening: Social Influencer of Health (SIOH): Review of Systems: Review of Systems As noted in HPI Objective BP (!) 162/63 Comment: a Pulse 66 Temp 36.3 ??C (97.4 ??F) (Temporal) Ht 1.473 m (57.99 ) Wt (!) 36.2 kg (79 lb 14.4 oz) BMI 16.70 kg/m?? SpO2: 96 % Physical Exam Constitutional: General: She is not in acute distress. Appearance: Normal appearance. She is not toxic-appearing. HENT: Head: Normocephalic. Cardiovascular: Rate and Rhythm: Normal rate and regular rhythm. Pulses: Normal pulses. Heart sounds: Normal heart sounds. Comments: Non pitting bl ankle edema Pulmonary: Effort: Pulmonary effort is normal. No respiratory distress. Breath sounds: Normal breath sounds. Abdominal: Palpations: Abdomen is soft. Tenderness: There is no abdominal tenderness. Musculoskeletal: Comments: Minimal tenderness to palpation along the left ankle. No pretibial or calf tenderness to palpation bilaterally. No erythema in both legs Neurological: Mental Status: She is alert. Comments: Sitting comfortably in wheelchair Psychiatric: Mood and Affect: Mood normal. Behavior: Behavior normal. Thought Content: Thought content normal. Lab Results Component Value Date WBC 8.8 11/11/2024 HGB 9.8 (L) 11/11/2024 HCT 31.9 (L) 11/11/2024 PLT 347 11/11/2024 CHOL 147 01/23/2024 TRIG 93 01/23/2024 HDL 81 01/23/2024 ALT 23 11/11/2024 AST 21 11/11/2024 NA 141 11/11/2024 K 4.8 11/11/2024 CL 111 (H) 11/11/2024 CREATININE 1.66 (H) 11/11/2024 BUN 31 (H) 11/11/2024 CO2 20 (L) 11/11/2024 TSH 0.61 11/11/2024 HGBA1C 6.2 09/02/2024 Assessment/Plan Assessment & Plan Primary hypertension Still poorly controlled. Will increase losartan from 50 mg to 100 mg daily. Continue metoprolol 50 mg twice daily. Given her history of CAD, her goal blood pressure is less than 130/80 Leg swelling Likely related to the CKD stage IIIb/ischemic cardiomyopathy. She is pending an echocardiogram later this month and is strongly advised to keep that appointment Given the left leg pain/ankle swelling, will obtain ultrasound to rule out DVT Orders: B-type natriuretic peptide; Future Vascular US duplex lower extremity venous left; Future Stage 3b chronic kidney disease (CMS/HCC) Provided with the referral information for nephrology and her daughter is advised to call to help her schedule the appointment. Will update BMP to ensure there is no acute worsening Orders: B-type natriuretic peptide; Future Normocytic anemia Will update CBC to ensure stability as well as anemia panel Orders: CBC and differential; Future Iron and TIBC; Future Ferritin; Future Vitamin B12; Future Dyspnea on exertion Will obtain chest x-ray given reports of dyspnea on exertion and minimal cough. Will also update BMP Orders: XR Chest 2 Views; Future Basic metabolic panel; Future Abnormal thyroid scan Heterogenous hyperattenuation of the thyroid lobe. Was noted on CT scan done in the hospital. She has not completed a thyroid ultrasound which was scheduled Advised to schedule the appt for this today Orders: US Head Neck Soft Tissue; Future Markus Hopper MD ADULT MEDICINE [address] Dept: [phone] Dept Date of Visit: 01/03/2025 documented in this encounter Plan of Treatment Upcoming Encounters Date Type Department Care Team (Late st Contact Info) Description 01/21/2025 11:00 AM EDT Ancillary Procedure [facility] 101 300 [facility] 101 [place] [address] 01/29/2025 10:00 AM EDT Consult Adult Medicine [address] [phone] Markus Hopper MD [address] [place] [address] 02/11/2025 3:45 PM EDT Office Visit Orthopedic Surgery - [place] [address] [phone] MarinelliPlacido DPM 175 [facility] [address] [place] [address] Scheduled Orders Name Type Priority Associated Diagnoses Orde r Schedule US Head Neck Soft Tissue Imaging Routine Abnormal thyroid scan Expected: 01/03/2025, Expires: 01/03/2026 documented as of this encounter Results * XR Chest 2 Views (01/07/2025 2:54 PM EDT) Anatomical Region Laterality Modality Body Radiographic Marialuisa ging 01/07/2025 4:30 PM EDT Impressions 01/07/2025 4:37 PM EDT No acute pulmonary pathology. COPD. -------- FINAL REPORT -------- Dictated By: Charlene Bailey Dictated Date: 01/07/2025 16:30 ET Assigned Physician: Charlene Bailey Reviewed and Electronically Signed By: Charlene Bailey Signed Date: 01/07/2025 16:37 ET Workstation ID: [id number] Transcribed By: Self Edit Transcribed Date: 01/07/2025 16:30 ET Narrative 01/07/2025 4:37 PM EDT CHEST, TWO VIEWS HISTORY: ?? Dyspnea on exertion. TECHNIQUE: Frontal and lateral views of the chest. PRIOR: None. FINDINGS: The lungs are hyperinflated. The lungs are clear. No pleural effusion is seen. No pneumothorax is seen. The cardiac diameter is within normal limits. No acute or aggressive appearing bony abnormalities are seen. ??Is curvature of the spine. Procedure Note Charlene Bailey MD - 01/07/2025 CHEST, TWO VIEWS HISTORY: Dyspnea on exertion. TECHNIQUE: Frontal and lateral views of the chest. PRIOR: None. FINDINGS: The lungs are hyperinflated. The lungs are clear. No pleural effusion is seen. No pneumothorax is seen. The cardiac diameter is within normal limits. No acute or aggressive appearing bony abnormalities are seen. Iscurvature of the spine. IMPRESSION: No acute pulmonary pathology. COPD. -------- FINAL REPORT -------- Dictated By: Charlene Bailey Dictated Date: 01/07/2025 16:30 ET Assigned Physician: Charlene Bailey Reviewed and Electronically Signed By: Charlene Bailey Signed Date: 01/07/2025 16:37 ET Workstation ID: [id number] Transcribed By: Self Edit Transcribed Date: 01/07/2025 16:30 ET us Markus Hopper MD IMG XR PROCEDURE S Final Result * Vascular US duplex lower extremity venous [...] Signed Date: 01/07/2025 16:15 ET Workstation ID: [id number] Transcribed By: Self Edit Transcribed Date: 01/07/2025 [...] Signed Date: 01/07/2025 16:15 ET Workstation ID: [id number] Transcribed By: Self Edit Transcribed Date: 01/07/2025 16:13 ET Markus Hopper MD CV VASCULAR PROC EDURES Final Result * Vitamin B12 (01/03/2025 1:26 PM EST) [facility] Vitamin B-12 734 250 - 900 pcg/mL LAB CHEMISTRY METHOD 01/03/2025 7:34 PM EST [facility] Blood Venous blood specimen / Unknown Venipuncture / Unknown 01/03/2025 1:26 PM EST 01/03/2025 1:26 PM EST Markus Hopper MD LAB BLOOD ORDERA BLES Final Result [facility] [address] [place] [address], [place] [phone] * Ferritin (01/03/2025 1:26 PM EST) [facility] Ferritin 20 8 - 252 ng/mL LAB CHEMISTRY METHOD 01/03/2025 7:34 PM EST [facility] Blood Venous blood specimen / Unknown Venipuncture / Unknown 01/03/2025 1:26 PM EST 01/03/2025 1:26 PM EST Markus Hopper MD LAB BLOOD ORDERA BLES Final Result Performing Organization Address City/[facility]/ZIP Co de Phone Number [facility] [address] [place] [address], [place] [phone] * Iron and TIBC (01/03/2025 1:26 PM EST) Pathologist [facility] Iron 149 40 - 150 mcg/dL LAB CHEMISTRY METHOD 01/03/2025 7:03 PM EST [facility] TIBC 427 250 - 450 mcg/dL LAB CHEMISTRY METHOD 01/03/2025 7:03 PM EST [facility] Iron Saturation 35 15 - 50 % LAB CHEMISTRY METHOD 01/03/2025 7:03 PM [facility] Blood Venous blood specimen / Unknown Venipuncture / Unknown 01/03/2025 1:26 PM EST 01/03/2025 1:26 PM EST Markus Hopper MD LAB BLOOD ORDERA BLES Final Result Performing Organization Address [facility] Co de Phone Number [facility] [address] [place] [address], [place] [phone] * (ABNORMAL) Basic metabolic panel (01/03/2025 1:26 PM EST) [facility] Sodium 144 133 - 145 mmol/L LAB CHEMISTRY METHOD 01/03/2025 7:03 PM EST [facility] Potassium 4.8 3.5 - 5.5 mmol/L LAB CHEMISTRY METHOD 01/03/2025 7:03 PM [facility] Chloride 115(H) 96 - 110 mmol/L LAB CHEMISTRY METHOD 01/03/2025 7:03 PM [facility] CO2 21 21 - 32 mmol/L LAB CHEMISTRY METHOD 01/03/2025 7:03 PM [facility] Anion Gap 8 3 - 11 LAB CHEMISTRY METHOD 01/03/2025 7:03 PM [facility] Glucose 114(H) 70 - 100 mg/dL LAB CHEMISTRY METHOD 01/03/2025 7:03 PM [facility] BUN 40(H) 5 - 25 mg/dL LAB CHEMISTRY METHOD 01/03/2025 7:03 PM [facility] Creatinine 1.74(H) 0.50 - 1.10 mg/dL LAB CHEMISTRY METHOD 01/03/2025 7:03 PM [facility] eGFR 29(L) >=60 mL/min/1. 73m2 LAB CHEMISTRY METHOD 01/03/2025 7:03 PM [facility] Comment:Calculation based on the??Chronic Kidney Disease Epidemiology Collaboration (CKD-EPI) equation refit??without adjustment for race. BUN/Creatinine Ratio 23.0 LAB CHEMISTRY METHOD 01/03/2025 7:03 PM [facility] Calcium 9.2 8.5 - 10.5 mg/dL LAB CHEMISTRY METHOD 01/03/2025 7:03 PM [facility] Blood Venous blood specimen / Unknown Venipuncture / Unknown 01/03/2025 1:26 PM EST 01/03/2025 1:26 PM EST Markus Hopper MD LAB BLOOD ORDERA BLES Final Result [facility] [address] [place] [address], * B-type natriuretic peptide (01/03/2025 1:26 PM EST) BNP 100 <=100 pcg/mL LAB CHEMISTRY METHOD 01/03/2025 7:00 PM [facility] Blood Venous blood specimen / Unknown Venipuncture / Unknown 01/03/2025 1:26 PM EST 01/03/2025 1:26 PM EST Markus Hopper MD LAB BLOOD ORDERA BLES Final Result [facility] [address] [place] [address], documented in this encounter Visit Diagnoses Diagnosis Primary hypertension- Primary Unspecified essential hypertension Leg swelling Swelling of limb Stage 3b chronic kidney disease (CMS/HCC) Normocytic anemia Unspecified anemia Dyspnea on exertion Other dyspnea and respiratory abnormality Abnormal thyroid scan Nonspecific abnormal results of thyroid function study Leg swelling Swelling of limb Dyspnea on exertion Other dyspnea and respiratory abnormality documented in this encounter Discontinued Medications Medication Sig Discontinue Reason Start Date End Da te losartan (Cozaar) 50 mg tabletIndications:Primary hypertension Take 1 tablet (50 mg total) by mouth 1 (one) time each day. 12/02/2024 01/03/2025 documented as of this encounter Care Teams Procurement Agent Relationship Specialty Start Date End Date Markus Hopper MD [address] [place] [address] PCP - General 12/23/22 documented as of this encounter
--- OUTSIDE RECORDS SUMMARY | 2025-01-09 20:44 | XMS_ITS | Encounter Summary ---
Author Organization [employer] Address [address] [place] [address] Care Team Providers Care Punch Operator Name Role Phone Markus Hopper MD Primary Care Pr ovider Reason for Visit * Reason Onset Date Comments Fitting for DME 12/16/2024 Encounter Details Date Type Department Care Team (Late Contact Info) Description 12/16/2024 Telephone Adult Medicine [address] [phone] Maral Meadows LPN Fitting for DME Social History Tobacco Use Types Packs/Day Years [...] as of this encounter Progress Notes * Maral Meadows LPN - 12/19/2024 8:40 AM EST Rx and medicare form signed and faxed to [facility] @ [phone] * ERIC Agarwal - 12/17/2024 8:59 AM EST Orders signed Dot phrase added to plan section of note Thanks Maral * Maral Meadows LPN - 12/16/2024 9:53 AM EST Received request from Diana Escamilla pt needs wheelchair Rx to Diana to sign Diana can you add the dme dotwheelchair SmartPhrase to your note Thank you Maral BAUTISTA documented in this encounter Plan of Treatment Upcoming Encounters Date Type Department Care Team (Late st Contact Info) Description 01/21/2025 11:00 AM EDT Ancillary Procedure [facility] [address] [address] 01/29/2025 10:00 AM EDT Consult Adult Medicine [address] [phone] Markus Hopper MD [address] [place] [address] 02/11/2025 3:45 PM EDT Office Visit Orthopedic Surgery - [place] [address] [phone] Placido Marinelli, DPM [address] [address] documented as of this encounter Visit Diagnoses Diagnosis Recurrent falls- Primary Mild vascular dementia without behavioral disturbance, psychotic disturbance, mood disturbance, or anxiety (CMS/HCC) Age-related osteoporosis without current pathological fracture Fall from slip, trip, or stumble, initial encounter documented in this encounter Orders General Supply Count Last Ordered Date First Or dered Date WHEELCHAIR 1 12/16/2024 documented in this encounter Care Teams Punch Operator Relationship Specialty Start Date End Date Markus Hopper MD [address] [place] [address] PCP - General 12/23/22 documented as of this encounter
--- OUTSIDE RECORDS SUMMARY | 2025-01-09 20:44 | XMS_ITS | Encounter Summary ---
Author Organization [employer] Address [address] [place] [address] Care Team Providers Care Drapery Operator Name Role Phone Markus Hopper MD Primary Care Pr ovider Encounter Details Date Type Department Care Team (Latest Contact Info) Description 01/07/2025 2:39 PM EDT - 01/07/2025 11:59 PM EDT Hospital Encounter [facility] [address] [place] [address] Dyspnea on exertion Discharge Disposition: Home or Self Care Social [...] 80 mg tabletIndications :Atherosclerotic heart disease of [place] coronary artery without angina pectoris,Hyperlip idemia, unspecified TAKE 1 TABLET BY MOUTH EVERY DAY 90 tablet 1 12/04/2024 cholecalciferol (VITAMIN D-3) 25 mcg (1,000 unit) capsule None Entered famotidine (Pepcid) 20 mg tablet Take 1 tablet (20 mg total) by mouth 2 (two) times a day if needed for heartburn. 180 each 1 09/02/2024 5 losartan (COZAAR) 100 mg tablet Take 1 tablet (100 mg total) by mouth 1 (one) time each day. 90 each 1 01/03/2025 5 metoprolol tartrate (LOPRESSOR) 50 mg tabletIndications :Essential (primary) hypertension,Athe rosclerotic heart disease of [place] coronary artery without angina pectoris TAKE 1 [...] Description 01/21/2025 11:00 AM EDT Ancillary Procedure [facility] 101 300 [facility] 101 [place] [address] 01/29/2025 10:00 AM EDT Consult Adult Medicine [address] [phone] Markus Hopper MD [address] [place] [address] 02/11/2025 3:45 PM EDT Office Visit Orthopedic Surgery - [address] [phone] Placido Marinelli, DPM 175 [facility] [address] [place] [address] documented as of this encounter Procedures Procedure Name Priority Date/Time Associated Diagnosis Comments XR CHEST 2 VIEWS Routine 01/07/2025 2:54 PM EDT Dyspnea on exertion documented in this encounter Results * XR Chest 2 [...] Signed Date: 01/07/2025 16:37 ET Workstation ID: [id number] Transcribed By: Self Edit Transcribed Date: 01/07/2025 [...] Signed Date: 01/07/2025 16:37 ET Workstation ID: [id number] Transcribed By: Self Edit Transcribed Date: 01/07/2025 16:30 ET Markus Hopper MD IMG XR PROCEDURE S Final Result documented in this encounter Visit Diagnoses Diagnosis Dyspnea on exertion Other dyspnea and respiratory abnormality documented in this encounter Care Teams Drapery Operator Relationship Specialty Start Date End Date Markus Hopper MD [address] [place] [address] PCP - General 12/23/22 documented as of this encounter
--- OUTSIDE RECORDS SUMMARY | 2025-01-09 20:45 | XMS_ITS | Encounter Summary ---
Author Organization [facility] Address [address] [place] [address] Care Team Providers Care Traffic Signal Technician Name Role Phone Markus Hopper MD Primary Care Pr ovider Reason for Visit * Reason Comments [place] follow [place] [facility] En[place] Details Date Type Department Care Team ([facility] Contact Info) Description 12/11/2024 11:30 AM EST Office Visit Adult Medicine [address] [phone] Diana Sheridan PA [address] [place] [phone] Left leg pain (Primary Dx); Fall from slip, trip, or stumble, initial encounter; Stage 3b chronic kidney disease (CMS/HCC); Primary hypertension Social History Tobacco Use Types Packs/Day Years [...] Sign Reading Time Taken Comments Blood Pressure 148/83 12/11/2024 11:27 AM EST Pulse 88 12/11/2024 11:27 AM EST Temperature 36.3 ??C (97.3 ??F) 12/11/2024 11:[address] Respiratory Rate 14 12/11/2024 11:27 AM EST Oxygen Saturation 98% 12/11/2024 11:27 AM EST Inhaled Oxygen Concentration - - Weight 36.7 kg (81 lb) 12/11/2024 11:27 AM EST Height 147.3 cm (4' 10 ) 12/11/2024 11:27 AM EST Body Mass Index 16.93 12/11/2024 11:27 AM EST documented in this encounter Ordered Prescriptions Prescription Sig Dispense Quantity Refills Last Filled Start Date End Date methylPREDNISolon e (Medrol, Wilber,) 4 mg tablet Follow schedule on package instructions 21 tablet 12/11/2024 documented in this encounter Progress Notes * ERIC Agarwal - 12/11/2024 11:30 AM EST Send some more blood pressure readings over [facility] in ~2 weeks And we can decide what to do about blood pressure medications * ERIC Agarwal - 12/11/2024 11:30 AM EST CHIEF COMPLAINT: ER follow up [place] IDENTIFIER: Concha Cheng is a 84 y.o. old female. HPI: 84-year-old female presents to office today for ER follow-up. She is accompanied by her daughter, Gabrielle, today and her other daughter, Paty, is also present over speaker phone during some of thevisit [facility] 11/21/24 Patient presented for evaluation of left hip pain and low back pain following a fall the night prior where she fell into her lower back from a standing position when she was trying to ambulate with her walker, denied head injury, denied neck pain, able to bear weight and ambulate with walker. Well in the ER, patient had x-ray of the left hip, pelvis and lumbar spine/sacrum that were negative for a cute fracture and she was discharged home [facility] 12/08/24 Patient presented for evaluation following a fall, per HPI, patient had been on the phone with her daughter and daughter heard patient yelling I fell over the phone, patient apparently fell off of a chair. No LOC. Daughter called 911 and patient was brought to the hospital, patient was noted to have obvious bruising to the left upper lip with no mental status change per HPI, while in the ER. Dena orozco underwent CT of the head and cervical spine that were negative per provider note, she did not seem to show any other signs of injury. She was discharged home Today, patient is reporting pain over her left thigh, denies pain at rest, but states when she is walking or sitting down from a standing position she notices pain. Pain does not radiate, is located over the front of her leg. Pain is been increasingly bothersome since her visit to [facility] on fall. She has been taking Tylenol with mild relief. Daughter states that they have even be en giving her some ibuprofen as this seems to help, but they are worried to continue this given patient's history of CKD Patient lives on a first floor apartment, apartment itself is 1 floor and a [place]+ community, she doesreside there alone. Daughter states that she has [employer] eldercare coming in Mondays, Tuesdaysand Wednesdays from 12 to 2 PM. She states that her and her sister also go over there to cover times that [employer] [facility] is not there, they are trying to get patient more services. She currently has home PT and OT through [facility] (she has been having services since hospital discharge in September, was admitted to [facility] in September and discharged to rehab subsequently - see 11/11/24 OV note with PCP) Hypertension-BP in office today 148/83, patient has been compliant with her metoprolol 50 mg twice daily and losartan 50 mg daily. At visit in September, losartan was decreased to 25 and amlodipine had been discontinued. She had been noticing elevated blood pressures, so per 2/3 telephone encounter,losartan was increased back up to 50 mg. Home log with similar readings to today's, they are unsureif patient's pain is contributing to her blood pressures recently ROS: GENERAL: No malaise or fever HEENT: No changes in hearing or vision RESPIRATORY: No cough, wheezing or shortness of breath CARDIOVASCULAR: No chest pain, leg swelling GI: No abdominal pain, diarrhea, constipation MUSCULOSKELETAL: SEE HPI NEURO: No syncope, numbness All other systems reviewed and negative. PAST MEDICAL HISTORY: Patient Active Problem List Diagnosis Date Noted Osteoarthritis of cervical spine with myelopathy 09/03/2024 Normocytic anemia 09/03/2024 Mild vascular dementia without behavioral disturbance, psychotic disturbance, mood disturbance, or anxiety ([facility]) 09/03/2024 Atherosclerosis of both carotid arteries 09/03/2024 Sensorineural hearing loss (SNHL) of both ears 01/20/2024 Prediabetes 07/17/2023 Underweight 07/17/2023 Gastroesophageal reflux disease 05/05/2023 History of RI (myocardial infarction) 05/23/2022 IBS (irritable bowel syndrome) 11/06/2020 Aneurysm of middle cerebral artery 12/14/2018 CKD (chronic kidney disease) stage 3, GFR 30-59 ml/min ([facility]) 10/14/2014 Osteoporosis 09/18/2013 Sebaceous cyst 07/03/2012 CAD (coronary artery disease) 11/16/2011 Dyslipidemia 11/16/2011 Myocardial infarction ([facility]) 06/23/2011 Distal radial fracture 08/10/2010 Calculus of kidney 10/02/2006 Diverticulitis of colon without hemorrhage 10/02/2006 Senile osteoporosis 10/02/2006 Unspecified sinusitis (chronic) 10/02/2006 Hypertension 08/03/2006 ACTIVE MEDICATIONS: Current Outpatient Medications Medication Instructions acetaminophen (TYLENOL 8 HOUR) 650 mg, oral, Every 8 hours PRN, Do not crush, chew, or split. aspirin 81 mg EC tablet Take 1 Tab by mouth daily. atorvastatin (LIPITOR) 80 mg, oral, Daily cholecalciferol (VITAMIN D-3) 25 mcg (1,000 unit) capsule None Entered famotidine (PEPCID) 20 mg, oral, 2 times daily PRN losartan (COZAAR) 50 mg, oral, Daily methylPREDNISolone (Medrol, Wilber,) 4 mg tablet Follow schedule on package instructions metoprolol tartrate (LOPRESSOR) 50 mg tablet TAKE [...] tablet Take 1 Tablet by mouth daily. ALLERGIES: Allergies Allergen Reactions Lorazepam Agitation, confusion Nitrofurantoin Hives PHYSICAL EXAM: Blood pressure (!) 148/83, pulse 88, temperature 36.3 ??C (97.3 ??F), temperature source Temporal, resp. rate 14, height 1.473 m (58 ), weight (!) 36.7 kg (81 lb), SpO2 98%. Body mass index is 16.93 kg/m??. APPEARANCE: Alert and in no acute distress EYES: Conjunctiva and sclera normal. HEART: RRR with normal S1 and S2 LUNG: clear to auscultation, no wheezing, rales, or rhonchi EXTREMITIES: Extremities warm and well perfused without clubbing, cyanosis, or edema. Normal activeflexion and extension L knee, normal hip flexion. Patient is ambulatory in exam room from chair to walker NEURO: Awake, alert and oriented x 3 IMPRESSION: 1. Left leg pain 2. Fall from slip, trip, or stumble, initial encounter 3. Stage 3b chronic kidney disease (CMS/HCC) 4. Primary hypertension PLAN: Patient reporting pain over her left distal thigh following fall 12/08. She had been evaluated for left hip pain and lower back pain at [facility] following a fall end of October, she did have negativex-rays of her left hip and lower back. Given pain increase since recent fall, will obtain x-ray of the left femur and left knee. Given CKD, advised against use of NSAIDs. Discussed could trial Medrolpack for anti-inflammatory properties. Patient has had bad reaction to lorazepam in the past, givenage, falls and that she lives alone, concern to try pain medications given potential for drowisness. Continue Tylenol. If x-rays negative, could consider focused PT for leg pain HTN - BP elevated, could be related to leg pain. Will have daughters sent BP readings over [facility] in ~1-2 weeks to see if losartan needs to be increased further Keep December appt with PCP Patient and daughter verbalized understanding and are in agreement with plan Daughter is requesting wheelchair for patient Wheelchair Supportive Documentation On 12/11/2024, I evaluated Ms. Cheng for her mobility limitation due to osteoarthritis. Thisissue significantly impairs her ability to participate in one or more mobility-related activities of daily living (MRADLs) such as toileting, feeding, dressing, grooming, and bathing in customary locations in the home. The mobility limitation cannot be sufficiently resolved by the use of an appropriately fitted cane or walker since the patient is not able to ambulate long distances. The home provides adequate access between rooms, maneuvering space and surfaces for the use of the standard, manual wheelchair that is proposed. Use of a standard, manual wheelchair will significantly improve the patients ability toparticipate in their MARDL's. The patient will use it on a regular basis in the home. The patient has expressed a willingness to utilize this standard, manual wheelchair and has the ability to self-propel the wheelchair while engaging in activities within the home. ERIC Agarwal ADDITIONAL ORDERS: Orders Placed This Encounter Procedures XR Femur 2+ Views Left XR Knee 4+ Views Left None ERIC Agarwal on 12/11/2024 at 1:45 PM EST Today's documentation was made using voice recognition software.This note may contain grammatical errors secondary to this software. documented in this encounter Plan of Treatment Upcoming Encounters Date Type Department Care Team (Late st Contact Info) Description 01/21/2025 11:00 AM EDT Ancillary Procedure [facility] [address] [address] 01/29/2025 10:00 AM EDT Consult Adult Medicine [address] [address] Markus Hopper MD [address] [place] [phone] 02/11/2025 3:45 PM EDT Office Visit Orthopedic Surgery [place] [id number] [address] Placido Marinelli, TAMEKA [address] [address] documented as of this encounter Results * XR Femur 2+ Views Left (12/11/2024 12:32 PM EST) Anatomical Region Laterality Modality Lower Extremities, Femur Left Radiogr aphic Imaging 12/11/2024 4:03 PM EST Impressions 12/11/2024 4:06 PM EST No acute findings. -------- FINAL REPORT -------- Dictated By: Charlene Bailey Dictated Date: 12/11/2024 16:03 ET Assigned Physician: Charlene Bailey Reviewed and Electronically Signed By: Charlene Bailey Signed Date: 12/11/2024 16:06 ET Workstation ID: [id number] Transcribed By: Self Edit Transcribed Date: 12/11/2024 16:03 ET Narrative 12/11/2024 4:06 PM EST LEFT FEMUR-4 VIEWS; LEFT KNEE-4 VIEWS HISTORY: Left thigh pain. FINDINGS: There is no fracture or dislocation. There is advanced atherosclerosis. Procedure Note Charlene Bailey MD - 12/11/2024 LEFT FEMUR-4 VIEWS; LEFT KNEE-4 VIEWS HISTORY: Left thigh pain. FINDINGS: There is no fracture or dislocation. There is advanced atherosclerosis. IMPRESSION: No acute findings. -------- FINAL REPORT -------- Dictated By: Charlene Bailey Dictated Date: 12/11/2024 16:03 ET Assigned Physician: Charlene Bailey Reviewed and Electronically Signed By: Charlene Bailey Signed Date: 12/11/2024 16:06 ET Workstation ID: [id number] Transcribed By: Self Edit Transcribed Date: 12/11/2024 16:03 ET Diana REYES IMG XR PROCEDURES Final Resul t * XR Knee 4+ Views Left (12/11/2024 12:32 PM EST) Anatomical Region Laterality Modality Lower Extremities, Knee Left Radiogra phic Imaging 12/11/2024 4:03 PM EST Impressions 12/11/2024 4:06 PM EST No acute findings. -------- FINAL REPORT -------- Dictated By: Charlene Bailey Dictated Date: 12/11/2024 16:03 ET Assigned Physician: Charlene Bailey Reviewed and Electronically Signed By: Charlene Bailey Signed Date: 12/11/2024 16:06 ET Workstation ID: [id number] Transcribed By: Self Edit Transcribed Date: 12/11/2024 16:03 ET Narrative 12/11/2024 4:06 PM EST LEFT FEMUR-4 VIEWS; LEFT KNEE-4 VIEWS HISTORY: Left thigh pain. FINDINGS: There is no fracture or dislocation. There is advanced atherosclerosis. Procedure Note Charlene Bailey MD - 12/11/2024 LEFT FEMUR-4 VIEWS; LEFT KNEE-4 VIEWS HISTORY: Left thigh pain. FINDINGS: There is no fracture or dislocation. There is advanced atherosclerosis. IMPRESSION: No acute findings. -------- FINAL REPORT -------- Dictated By: Charlene Bailey Dictated Date: 12/11/2024 16:03 ET Assigned Physician: Charlene Bailey Reviewed and Electronically Signed By: Charlene Bailey Signed Date: 12/11/2024 16:06 ET Workstation ID: [id number] Transcribed By: Self Edit Transcribed Date: 12/11/2024 16:03 ET Diana REYES IMG XR PROCEDURES Final Resul t documented in this encounter Visit Diagnoses Diagnosis Left leg pain- Primary Pain in soft tissues of limb Fall from slip, trip, or stumble, initial encounter Stage 3b chronic kidney disease (CMS/HCC) Primary hypertension Unspecified essential hypertension Left leg pain Pain in soft tissues of limb Left leg pain Pain in soft tissues of limb documented in this encounter Care Teams Traffic Signal Technician Relationship Specialty Start Date End Date Markus Hopper MD [address] [place] [id number] PCP - General 12/23/22 documented as of this encounter
--- OUTSIDE RECORDS SUMMARY | 2025-01-09 20:45 | XMS_ITS | Clinical Summary ---
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 Active aspirin 81 mg EC tablet Take 1 Tab by mouth daily. 06/15/20 11 Active cholecalciferol (VITAMIN D-3) 25 mcg (1,000 unit) capsule None Entered Act val triamcinolone (KENALOG) 0.1 % ointment Apply small amounts to affected area every 12 hours. Do not use for more than 14 days at a time 01/19/20 24 2024 Active nutritional drink (Ensure MAX Protein) liquid [...] for heartburn. 180 each 1 09/02/20 24 2024 Active atorvastatin (LIPITOR) 80 mg tabletIndicatio ns:Atherosclero tic heart disease of shoalwater coronary artery without angina pectoris,Hyperl ipidemia, unspecified TAKE 1 TABLET BY MOUTH EVERY DAY 90 tablet 1 12/04/19 25 Active metoprolol tartrate (LOPRESSOR) 50 mg tabletIndicatio ns:Essential (primary) hypertension,At herosclerotic heart disease of shoal[place] coronary artery without angina pectoris TAKE 1 TABLET BY MOUTH TWICE A DAY 180 tablet 1 12/25/19 25 Active losartan (COZAAR) 100 mg tablet Take 1 tablet (100 mg total) by mouth 1 (one) time each day. 90 each 1 01/04/20 25 2024 Active metoprolol tartrate (LOPRESSOR) 50 mg tablet TAKE 1 TABLET BY MOUTH TWICE A DAY 06/24/20 24 2024 Discontinued losartan (Cozaar) 50 mg tabletIndicatio ns:Primary hypertension Take 1 tablet (50 mg total) by mouth 1 (one) time each day. 90 each 1 12/02/19 25 2024 Discontinued methylPREDNISol one (Medrol, Wilber,) 4 mg tablet Follow schedule on package instructions 21 tablet 12/11/19 25 2024 Active Problems Problem Noted Date Diagnosed Date Osteoarthritis of cervical spine with myelopathy 09/03/2024 Normocytic anemia 09/03/2024 Assessment & Plan (01/03/2025 1:28 PM EST): Will update CBC to ensure stability as well as anemia panel Orders: CBC and differential; Future Iron and TIBC; Future Ferritin; Future Vitamin B12; Future Assessment & Plan (11/12/2024 8:18 PM EST): Likely 2/2 CKD stage 3b. She has agreed to establish care with a sanitarian inspector and a referral is placed Will update [...] 07/17/2023 Gastroesophageal reflux disease 05/05/2023 History of LA (myocardial infarction) 05/23/2022 Overview (08/26/2024): Hx 2 stents Assessment & Plan (11/12/2024 8:18 PM EST): Continue aspirin and atorvastatin 80mg IBS (irritable bowel syndrome) 11/06/2020 Aneurysm of middle cerebral artery 12/14/2018 CKD (chronic kidney disease) stage 3, GFR 30-59 ml/min 10/14/2014 Overview (08/26/2024): GFR 43 on 07/24/14. Assessment & Plan (01/03/2025 1:28 PM EST): Provided with the referral information for nephrology and her daughter is advised to call to help her schedule the appointment. Will update BMP to ensure there is no acute worsening Orders: B-type natriuretic peptide; Future Assessment & Plan (11/12/2024 8:18 PM EST): She is now amenable to seeing A sanitarian inspector. Counselled on the importance of this Orders: [...] IMO update Hypertension 08/03/2006 Assessment & Plan (01/03/2025 1:28 PM EST): Still poorly controlled. Will increase losartan from 50 mg to 100 mg daily. Continue metoprolol 50 mg twice daily. Given her history of CAD, her goal blood pressure is less than 130/80 Assessment & Plan (11/12/2024 8:18 PM EST): BP today is stable but labile and mostly elevated at home. Goal BP is < 130/80. She will continue metoprolol 50mg BID and start decreased dose of losartan Monitor BP at home Report readings via Solicorehart after a month to determine need for medication adjustment Orders: losartan (Cozaar) 25 mg tablet; Take 1 tablet (25 mg total) by mouth at bedtime. Comprehensive metabolic panel; Future Encounters Date Type Department Care Team Description 01/07/2025 2:39 PM EDT - 01/07/2025 11:59 PM EDT Hospital Encounter XRAY - [address] [phone] Dyspnea on exertion Discharge Disposition: Home or Self Care 01/07/2025 2:22 PM EDT - 01/07/2025 11:59 PM EDT Hospital Encounter Radiology Department - [address] [phone] Leg swelling Discharge Disposition: Home or Self Care 01/03/2025 12:30 PM EST Office Visit Adult Medicine [address] [phone] Markus Hopper MD Primary hypertension (Primary Dx); Leg swelling; Stage 3b chronic kidney disease (CMS/HCC); Normocytic anemia; Dyspnea on exertion; Abnormal thyroid scan 12/25/2024 Billing Patient Not Present Adult Medicine [address] [phone] Markus Hopper MD 12/16/2024 Telephone Adult Medicine [address] [phone] Maral Meadows LPN Fitting for DME 12/11/2024 12:12 PM EST - 12/11/2024 11:59 PM EST Hospital Encounter X[address] [phone] Left leg pain Discharge Disposition: Home or Self Care 12/11/2024 12:12 PM EST - 12/11/2024 11:59 PM EST Hospital Encounter [address] [phone] Left leg pain Discharge Disposition: Home or Self Care 12/11/2024 11:30 AM EST Office Visit Adult [address] [phone] Diana Sheridan PA Left leg pain (Primary Dx); Fall from slip, trip, or stumble, initial encounter; Stage 3b chronic kidney disease (CMS/HCC); Primary hypertension 12/02/2024 Telephone Adult Medicine [address] [phone] Markus Hopper MD 12/02/2024 Telephone Adult Medicine [address] [phone] Markus Hopper MD Hypertension 11/15/2024 Billing Patient Not Present Adult Medicine [address] [phone] Markus Hopper MD Dehydration (Primary Dx); Unspecified injury of head, subsequent encounter; Hypertensive chronic kidney disease with stage 1 through stage 4 chronic kidney disease, or unspecified chronic kidney disease; Chronic kidney disease, stage 4 (severe) ([facility]/HCC); Hyperlipidemia, unspecified hyperlipidemia type; Atherosclerosis of shoalwater coronary artery without angina pectoris, unspecified whether shoalwater or transplanted heart; Old myocardial infarction; Gastro-esophageal reflux disease without esophagitis; Other spondylosis, cervical region; Age-related osteoporosis without current pathological fracture; Fall on same level from slipping, tripping and stumbling without subsequent striking against object, subsequent encounter; Personal history of nicotine dependence; 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 11/13/2024 2:15 PM EST Consult Orthopedic Surgery - [address] [phone] Placido Marinelli DPM Dermatophytosis of nail (Primary Dx); Onychomycosis; Hyperkeratosis of nail; Acquired hammer toe of right foot; Hammer toe of left foot; Pain in toe of right foot; Pain in toe of left foot; Tinea pedis of both feet; Difficulty walking; Bilateral femoral artery stenosis ([facility]/HCC) 11/11/2024 12:12 PM EST - 11/11/2024 11:59 PM EST Hospital Encounter [address] [phone] Acute pain of left knee Discharge Disposition: Home or Self Care 11/11/2024 10:30 AM EST Office Visit Adult Medicine [address] [phone] Markus Hopper MD Hospital discharge follow-up (Primary Dx); Colitis; Normocytic anemia; History of LA (myocardial infarction); Primary hypertension; Ischemic cardiomyopathy; Mild vascular dementia without behavioral disturbance, psychotic disturbance, mood disturbance, or anxiety ([facility]); Elevated lipase; Acute pain of left knee; Leg swelling; Thyroid condition; Stage 3b chronic kidney disease ([facility]/HCC) 10/31/2024 Telephone Adult Medicine [address] [phone] Markus Hopper MD Hypertension (See previous encounter 10-31-24 8:48am) 10/31/2024 Telephone Adult Medicine [address] [phone] Markus Hopper MD Hypertension 10/18/2024 Telephone Adult Medicine [address] [phone] Ezio Kern LPN [facility] Follow-up 10/14/2024 Telephone Adult Medicine [address] [phone] Lydia Stephens RN from Last 3 Months Immunizations Name Administration Dates Next Due Pneumococcal polysaccharide 23 valent (Pneumovax 23) 2yo and older 08/10/2010 Surgical History Surgery Date Site/Laterality Comments APPENDECTOMY PROCEDURE: [place] APPENDECTOMY OTHER SURGICAL HISTORY 02/06/13 PROCEDURE: RENAL [...] 01/03/2025 12:[address] Respiratory Rate 14 12/11/2024 11:27 AM EST Oxygen Saturation 96% 01/03/2025 12:30 PM EST Inhaled Oxygen Concentration - - Weight 36.2 kg (79 lb 14.4 oz) 01/03/2025 12:30 PM EST Height 147.3 cm (4' 9.99 ) 01/03/2025 12:[address] Body Mass Index 16.7 01/03/2025 12:30 PM EST Plan of Treatment Upcoming Encounters Date Type Department Care Team (Late st Contact Info) Description 01/21/2025 11:00 AM EDT Ancillary Procedure [facility] [address] [facility] [address] [place] [address] 01/29/2025 10:00 AM EDT Consult Adult Medicine [address] [phone] Markus Hopper MD [address] [place] [phone] 02/11/2025 3:45 PM EDT Office Visit Orthopedic Surgery - [place] [address] [phone] Placido Marinelli DPM [address] [phone] Health Maintenance Due Date Last Done Comments [...] (Patient Refused) Hypertension/CHF/CAD Annual BMP Blood Test 01/03/2026 01/03/2025, 11/11/2024, 10/24/2024, Additional history exists Cholesterol Screening (Lipid Panel) [...] patient's age to complete this topic Meningococcal B Vacine Aged Out No lo nger eligible based on patient's age to complete [...] 01/07/2025 2:54 PM EDT Dyspnea on exertion VAS US DUPLEX LOWER EXT VENOUS LEFT STAT 01/07/2025 2:45 PM EDT Leg swelling CBC WITH AUTO DIFFERENTIAL Routine 01/03/2025 1:26 PM EST Normocytic anemia B-TYPE NATRIURETIC PEPTIDE Routine 01/03/2025 1:26 PM EST Leg swelling Stage 3b chronic kidney disease (CMS/HCC) BASIC METABOLIC PANEL Routine 01/03/2025 1:26 PM EST Dyspnea on exertion CBC AND DIFFERENTIAL Routine 01/03/2025 1:26 PM EST Normocytic anemia IRON AND TIBC Routine 01/03/2025 1:26 PM EST Normocytic anemia FERRITIN Routine 01/03/2025 1:26 PM EST Normocytic anemia VITAMIN B12 Routine 01/03/2025 1:26 PM EST Normocytic anemia XR FEMUR 2+ VIEWS LEFT Routine 12/11/2024 12:32 PM EST Left leg pain XR KNEE 4+ VIEWS LEFT Routine 12/11/2024 12:32 PM EST Left leg pain XR KNEE 4+ VIEWS LEFT Routine 11/11/2024 [...] Relevant to Health Maintenance Results * XR Chest 2 Views (01/07/2025 2:54 PM EDT) Anatomical Region Laterality Modality Body Radiographic Marialuisa ging 01/07/2025 4:30 PM EDT Impressions 01/07/2025 4:37 PM EDT No acute pulmonary pathology. COPD. -------- FINAL REPORT -------- Dictated By: Charlene Bailey Dictated Date: 01/07/2025 16:30 ET Assigned Physician: Charlene Bailey Reviewed and Electronically Signed By: Charlene Bailey Signed Date: 01/07/2025 16:37 ET Workstation ID: [id number] Transcribed By: Self Edit Transcribed Date: 01/07/2025 [...] Signed Date: 01/07/2025 16:37 ET Workstation ID: [id number] Transcribed By: Self Edit Transcribed Date: 01/07/2025 [...] Signed Date: 01/07/2025 16:15 ET Workstation ID: [id number] Transcribed By: Self Edit Transcribed Date: 01/07/2025 [...] Signed Date: 01/07/2025 16:15 ET Workstation ID: [id number] Transcribed By: Self Edit Transcribed Date: 01/07/2025 16:13 ET Markus Hopper MD CV VASCULAR PROC EDURES Final Result * (ABNORMAL) CBC auto differential (01/03/2025 1:26 PM EST) Only the most recent of2 resultswithin the time period is included. Pathologist [facility] WBC 5.3 4.8 - 10.8 K/mcL LAB HEMETOLOGY METHOD 01/03/2025 4:41 PM [facility] RBC 3.30(L) 3.80 - 4.80 M/mcL LAB HEMETOLOGY METHOD 01/03/2025 4:41 PM [facility] Hemoglobin 10.5(L) 11.5 - 16.0 g/dL LAB HEMETOLOGY METHOD 01/03/2025 4:41 PM [facility] Hematocrit 33.6(L) 35.0 - 47.0 % LAB HEMETOLOGY METHOD 01/03/2025 4:41 PM [facility] MCV 100.9(H) 79.0 - 98.0 FL LAB HEMETOLOGY METHOD 01/03/2025 4:41 PM [facility] MCH 31.5 27.0 - 32.0 pcg LAB HEMETOLOGY METHOD 01/03/2025 4:41 PM [facility] MCHC 31.3(L) 32.0 - 37.0 g/dL LAB HEMETOLOGY METHOD 01/03/2025 4:41 PM [facility] RDW 14.6 11.0 - 15.0 % LAB HEMETOLOGY METHOD 01/03/2025 4:41 PM [facility] Platelets 313 130 - 400 K/mcL LAB HEMETOLOGY METHOD 01/03/2025 4:41 PM [facility] MPV 11.3(H) 7.0 - 11.0 FL LAB HEMETOLOGY METHOD 01/03/2025 4:41 PM [facility] NRBC 0.0 <1.0 % LAB HEMETOLOGY METHOD 01/03/2025 4:41 PM [facility] NRBC Absolute 0.00 <0.10 K/mcL LAB HEMETOLOGY METHOD 01/03/2025 4:41 PM [facility] Neutrophils Relative 64.2 % LAB HEMETOLOGY METHOD 01/03/2025 4:41 PM [facility] Lymphocytes Relative 22.4 % LAB HEMETOLOGY METHOD 01/03/2025 4:41 PM [facility] Monocytes Relative 8.6 % LAB HEMETOLOGY METHOD 01/03/2025 4:41 PM [facility] Eosinophils Relative 3.8 % LAB HEMETOLOGY METHOD 01/03/2025 4:41 PM [facility] Basophils Relative 0.8 % LAB HEMETOLOGY METHOD 01/03/2025 4:41 PM [facility] Immature Granulocytes Relative 0.2 % LAB HEMETOLOGY METHOD 01/03/2025 4:41 PM [facility] Neutrophils Absolute 3.38 1.50 - 7.00 K/mcL LAB HEMETOLOGY METHOD 01/03/2025 4:41 PM [facility] Lymphocytes Absolute 1.18 1.00 - 5.00 K/mcL LAB HEMETOLOGY METHOD 01/03/2025 4:41 PM [facility] Monocytes Absolute 0.45 0.20 - 1.00 K/mcL LAB HEMETOLOGY METHOD 01/03/2025 4:41 PM [facility] Eosinophils Absolute 0.20 0.00 - 0.50 K/mcL LAB HEMETOLOGY METHOD 01/03/2025 4:41 PM EST [facility] Basophils Absolute 0.04 0.00 - 0.20 K/mcL LAB HEMETOLOGY METHOD 01/03/2025 4:41 PM EST [facility] Immature Granulocytes Absolute 0.01 0.00 - 0.03 K/mcL LAB HEMETOLOGY METHOD 01/03/2025 4:41 PM EST [facility] Blood Venous blood specimen / Unknown Venipuncture / Unknown 01/03/2025 1:26 PM EST 01/03/2025 1:26 PM EST us Markus Hopper MD LAB BLOOD ORDERA BLES Final Result Performing Organization Address [facility]/ZIP Co de Phone Number [facility] [address] [place] [address], [place] [phone] * Iron and TIBC (01/03/2025 1:26 PM EST) Iron 149 40 - 150 mcg/dL LAB CHEMISTRY METHOD 01/03/2025 7:03 PM EST [facility] TIBC 427 250 - 450 mcg/dL LAB CHEMISTRY METHOD 01/03/2025 7:03 PM [facility] Iron Saturation 35 15 - 50 % LAB CHEMISTRY METHOD 01/03/2025 7:03 PM EST [facility] Blood Venous blood specimen / Unknown Venipuncture / Unknown 01/03/2025 1:26 PM EST 01/03/2025 1:26 PM EST us Markus Hopper MD LAB BLOOD ORDERA BLES Final Result Performing Organization Address City/[facility]/ZIP Co de Phone Number [facility] [address] [place] [address], [place] [phone] * B-type natriuretic peptide (01/03/2025 1:26 PM EST) Only the most recent of2 resultswithin the time period is included. BNP 100 <=100 pcg/mL LAB CHEMISTRY METHOD 01/03/2025 7:00 PM EST [facility] Blood Venous blood specimen / Unknown Venipuncture / Unknown 01/03/2025 1:26 PM EST 01/03/2025 1:26 PM EST Markus Hopper MD LAB BLOOD ORDERA BLES Final Result [facility] [address] [place] [address], [place] [phone] * Ferritin (01/03/2025 1:26 PM EST) [facility] Ferritin 20 8 - 252 ng/mL LAB CHEMISTRY METHOD 01/03/2025 7:34 PM EST [facility] Blood Venous blood specimen / Unknown Venipuncture / Unknown 01/03/2025 1:26 PM EST 01/03/2025 1:26 PM EST Markus Hopper MD LAB BLOOD ORDERA BLES Final Result Performing Organization Address City/[facility]/ZIP Co de Phone Number [facility] [address] [place] [address], [place] [phone] * Vitamin B12 (01/03/2025 1:26 PM EST) [facility] Vitamin B-12 734 250 - 900 pcg/mL LAB CHEMISTRY METHOD 01/03/2025 7:34 PM EST [facility] Blood Venous blood specimen / Unknown Venipuncture / Unknown 01/03/2025 1:26 PM EST 01/03/2025 1:26 PM EST us Markus Hopper MD LAB BLOOD ORDERA BLES Final Result [facility] [address] [place] [address], * (ABNORMAL) Basic metabolic panel (01/03/2025 1:26 PM EST) Sodium 144 133 - 145 mmol/L LAB CHEMISTRY METHOD 01/03/2025 7:03 PM [facility] Potassium 4.8 3.5 - 5.5 mmol/L LAB CHEMISTRY METHOD 01/03/2025 7:03 PM [facility] Chloride 115(H) 96 - 110 mmol/L LAB CHEMISTRY METHOD 01/03/2025 7:03 PM [facility] CO2 21 21 - 32 mmol/L LAB CHEMISTRY METHOD 01/03/2025 7:03 PM [facility] Anion Gap 8 3 - 11 LAB CHEMISTRY METHOD 01/03/2025 7:03 PM [facility] Glucose 114(H) 70 - 100 mg/dL LAB CHEMISTRY METHOD 01/03/2025 7:03 PM [facility] BUN 40(H) 5 - 25 mg/dL LAB CHEMISTRY METHOD 01/03/2025 7:03 PM [facility] Creatinine 1.74(H) 0.50 - 1.10 mg/dL LAB CHEMISTRY METHOD 01/03/2025 7:03 PM [facility] eGFR 29(L) >=60 mL/min/1. 73m2 LAB CHEMISTRY METHOD 01/03/2025 7:03 PM [facility] Comment:Calculation based on the??Chronic Kidney Disease Epidemiology Collaboration (CKD-EPI) equation refit??without adjustment for race. BUN/Creatinine Ratio 23.0 LAB CHEMISTRY METHOD 01/03/2025 7:03 PM [facility] Calcium 9.2 8.5 - 10.5 mg/dL LAB CHEMISTRY METHOD 01/03/2025 7:03 PM [facility] Blood Venous blood specimen / Unknown Venipuncture / Unknown 01/03/2025 1:26 PM EST 01/03/2025 1:26 PM EST Markus Hopper MD LAB BLOOD ORDERA BLES Final Result [facility]) [facility] [address] [place] [address], * XR Femur 2+ Views Left (12/11/2024 [...] Signed Date: 12/11/2024 16:06 ET Workstation ID: [id number] Transcribed By: Self Edit Transcribed Date: 12/11/2024 [...] Signed Date: 12/11/2024 16:06 ET Workstation ID: [id number] Transcribed By: Self Edit Transcribed Date: 12/11/2024 16:03 ET Diana REYES IMG XR PROCEDURES Final Resul t * XR Knee 4+ Views Left (12/11/2024 12:32 PM EST) Only the most recent of2 resultswithin the time period is included. Anatomical Region Laterality Modality Lower Extremities, Knee Left Radiogra [facility] 12/11/2024 4:03 PM EST Impressions 12/11/2024 4:06 PM EST No acute findings. -------- FINAL REPORT -------- Dictated By: Charlene Bailey Dictated Date: 12/11/2024 16:03 ET Assigned Physician: Charlene Bailey Reviewed and Electronically Signed By: Charlene Bailey Signed Date: 12/11/2024 16:06 ET Workstation ID: [id number] Transcribed By: Self Edit Transcribed Date: 12/11/2024 [...] Signed Date: 12/11/2024 16:06 ET Workstation ID: [id number] Transcribed By: Self Edit Transcribed Date: 12/11/2024 16:03 ET Diana REYES IMG XR PROCEDURES Final Resul t * Thyroid stimulating hormone with reflex to free t4 and free t3 (11/11/2024 12:01 PM EST) TSH 0.61 0.40 - 4.00 mcIU/mL LAB CHEMISTRY METHOD 11/15/2024 10:54 AM EST [facility] Blood Venous blood specimen / Unknown Venipuncture / Unknown 11/11/2024 12:01 PM EST 11/11/2024 12:01 PM EST Markus Hopper MD LAB BLOOD ORDERA BLES Final Result Performing Organization Address [facility]/ZIP Co de Phone Number [facility] [address] [place] [address], [place] [phone] * (ABNORMAL) Lipase (11/11/2024 12:01 PM EST) Pathologist [facility] Lipase 87(H) 13 - 75 unit/L LAB CHEMISTRY METHOD 11/11/2024 4:35 PM EST [facility] Blood Venous blood specimen / Unknown Venipuncture / Unknown 11/11/2024 12:01 PM EST 11/11/2024 12:01 PM EST Markus Hopper MD LAB BLOOD ORDERA BLES Final Result Performing Organization Address City/[facility]/ZIP Co de Phone Number [facility] [address] [place] [address], [place] [phone] * (ABNORMAL) Comprehensive metabolic panel (11/11/2024 12:01 PM EST) Pathologist [facility] Sodium 141 133 - 145 mmol/L LAB CHEMISTRY METHOD 11/11/2024 4:35 PM EST [facility] Potassium 4.8 3.5 - 5.5 mmol/L LAB CHEMISTRY METHOD 11/11/2024 4:35 PM EST [facility] Chloride 111(H) 96 - 110 mmol/L LAB CHEMISTRY METHOD 11/11/2024 4:35 PM EST [facility] CO2 20(L) 21 - 32 mmol/L LAB CHEMISTRY METHOD 11/11/2024 4:35 PM [facility] Anion Gap 10 3 - 11 LAB CHEMISTRY METHOD 11/11/2024 4:35 PM [facility] Glucose 96 70 - 100 mg/dL LAB CHEMISTRY METHOD 11/11/2024 4:35 PM [facility] BUN 31(H) 5 - 25 mg/dL LAB CHEMISTRY METHOD 11/11/2024 4:35 PM [facility] Creatinine 1.66(H) 0.50 - 1.10 mg/dL LAB CHEMISTRY METHOD 11/11/2024 4:35 PM [facility] eGFR 30(L) >=60 mL/min/1. 73m2 LAB CHEMISTRY METHOD 11/11/2024 4:35 PM [facility] Comment:Calculation based on the??Chronic Kidney Disease Epidemiology Collaboration (CKD-EPI) equation refit??without adjustment for race. BUN/Creatinine Ratio 18.7 LAB CHEMISTRY METHOD 11/11/2024 4:35 PM [facility] Calcium 9.0 8.5 - 10.5 mg/dL LAB CHEMISTRY METHOD 11/11/2024 4:35 PM [facility] AST (SGOT) 21 10 - 42 unit/L LAB CHEMISTRY METHOD 11/11/2024 4:35 PM [facility] ALT (SGPT) 23 10 - 60 unit/L LAB CHEMISTRY METHOD 11/11/2024 4:35 PM [facility] Alkaline Phosphatase 93 42 - 121 unit/L LAB CHEMISTRY METHOD 11/11/2024 4:35 PM [facility] Total Protein 6.9 6.0 - 8.0 g/dL LAB CHEMISTRY METHOD 11/11/2024 4:35 PM [facility] Albumin 3.7 3.2 - 5.0 g/dL LAB CHEMISTRY METHOD 11/11/2024 4:35 PM [facility] Total Bilirubin 0.3 0.0 - 1.4 mg/dL LAB CHEMISTRY METHOD 11/11/2024 4:35 PM EST [facility] Blood Venous blood specimen / Unknown Venipuncture / Unknown 11/11/2024 12:01 PM EST 11/11/2024 12:01 PM EST Markus Hopper MD LAB BLOOD ORDERA BLES Final Result [facility] ([facility]) [facility] [address] [place] [address], [place] [phone] * Lipid panel (01/23/2024) LDL/HDL Ratio 2 0 - 4 Triglycerides 93 0 - 150 mg/dL Cholesterol 147 0 - 200 mg/dL HDL 81 >=40 mg/dL LDL Cholesterol 48 0 - 100 mg/dL Blood Venous blood specimen / Unknown Historical Provider LAB BLOOD ORDERABLES Linn l Result * Depression Screening (01/19/2024) Pathologist [facility] Depression Screening Abstracted Historical Provider HEALTH MAINTENANCE Final Result from Last 3 Months or Most Recently Relevant to Health Maintenance Insurance MEDICARE Care Teams 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 - General 12/23/22
--- OUTSIDE RECORDS SUMMARY | 2025-01-09 20:45 | XMS_ITS | Encounter Summary ---
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
--- OUTSIDE RECORDS SUMMARY | 2025-01-09 20:45 | XMS_ITS | Clinical Summary ---
Author Organization [facility], Address [address] [place] [address] [place] [address] Phone Care Team Providers Care Manager Regulatory Name Role Phone Markus Hopper Primary Care [...] complete this topic Insurance ., [address] [place] [address] MEDICARE , [address] [place] [id number] , [address] [place] [phone] Care Teams Manager Regulatory Relationship Specialty Start Date End Date Markus Hopper PCP - General 07/26/23
--- OUTSIDE RECORDS SUMMARY | 2025-01-09 20:45 | XMS_ITS | Encounter Summary ---
Author Organization [employer] Address [address] [place] [address] Care Team Providers Care Powered Bridge Specialist Name Role Phone Markus Hopper MD Primary Care Pr ovider Encounter Details Date Type Department Care Team (Latest Contact Info) Description 12/11/2024 12:12 PM EST - 12/11/2024 11:59 PM [facility] Hospital Encounter XRYUAN - [address] [place] [address] Left leg pain Discharge Disposition: Home or Self Care Social [...] 80 mg tabletIndications :Atherosclerotic heart disease of [place] coronary artery without angina pectoris,Hyperlip idemia, unspecified TAKE 1 TABLET BY MOUTH EVERY DAY 90 tablet 1 12/04/2024 cholecalciferol (VITAMIN D-3) 25 mcg (1,000 unit) capsule None Entered famotidine (Pepcid) 20 mg tablet Take 1 tablet (20 mg total) by mouth 2 (two) times a day if needed for heartburn. 180 each 1 09/02/2024 nutritional drink (Ensure MAX Protein) liquid Take 1 Bottle by mouth 3 times daily (with meals). 01/19/2024 triamcinolone (KENALOG) 0.1 % ointment Apply small amounts to affected area every 12 hours. Do not use for more than 14 days at a time 01/19/2024 Vitamin C tablet Take 1 Tablet by mouth daily. methylPREDNISolon e (Medrol, Wilber,) 4 mg tablet Follow schedule on package instructions 21 tablet 12/11/2024 5 losartan (Cozaar) 50 mg tabletIndications :Primary hypertension Take 1 tablet (50 mg total) by mouth 1 (one) time each day. 90 each 1 12/02/2024 5 metoprolol tartrate (LOPRESSOR) 50 mg tablet TAKE 1 TABLET BY MOUTH TWICE A DAY 06/24/2024 5 documented as of this encounter Discharge Disposition Disposition Code Departure Means Destination Home or Self Care documented in this encounter Plan of Treatment Upcoming Encounters Date Type Department Care Team (Late st Contact Info) Description 01/21/2025 11:00 AM EDT Ancillary Procedure [facility] [address] [facility] [address] [place] [address] 01/29/2025 10:00 AM EDT Consult Adult Medicine [address] [address] Markus Hopper MD [address] [place] [address] 02/11/2025 3:45 PM EDT Office Visit Orthopedic Surgery [address] [place] [phone] Placido Marinelli, DPM [address] [facility] [address] [place] [address] documented as of this encounter Procedures Procedure Name Priority Date/Time Associated Diagnosis Comments XR FEMUR 2+ VIEWS LEFT Routine 12/11/2024 12:32 PM EST Left leg pain documented in this encounter Results * XR Femur 2+ [...] Signed Date: 12/11/2024 16:06 ET Workstation ID: [id number] Transcribed By: Self Edit Transcribed Date: 12/11/2024 [...] Signed Date: 12/11/2024 16:06 ET Workstation ID: [id number] Transcribed By: Self Edit Transcribed Date: 12/11/2024 16:03 ET Diana REYES IMG XR PROCEDURES Final Resul t documented in this encounter Visit Diagnoses Diagnosis Left leg pain Pain in soft tissues of limb documented in this encounter Care Teams Powered Bridge Specialist Relationship Specialty Start Date End Date Markus Hopper MD [address] [place] [address] PCP - General 12/23/22 documented as of this encounter
--- OUTSIDE RECORDS SUMMARY | 2025-01-09 20:45 | XMS_ITS | Clinical Summary ---
Author Organization [facility] Address [address] [place] [address] Care Team Providers Care Photographic Laboratory Technician Name Role Phone Unavailable Primary Care Provider Unavailabl e Social History Tobacco Use Types Packs/Day Years Used Date Smoking Tobacco: Never Assessed Sex and Gender Information Value Date Recorded Sex Assigned at Not on file Gender Identity Not on file Sexual Orientation Not on file Plan of Treatment Not on file
--- OUTSIDE RECORDS SUMMARY | 2025-01-09 20:45 | XMS_ITS | Encounter Summary ---
Author Organization [employer] Address [address] [place] [address] Care Team Providers Care Auto Appraiser Name Role Phone Markus Hopper MD Primary Care Pr ovider Encounter Details Date Type Department Care Team (Latest Contact Info) Description 12/11/2024 12:12 PM EST - 12/11/2024 11:[address] [facility] Hospital Encounter XRYUAN - [address] [place] [address] Left leg pain Discharge Disposition: Home or [...] 80 mg tabletIndications :Atherosclerotic heart disease of [place] coronary artery without angina pectoris,Hyperlip idemia, unspecified [...] Description 01/21/2025 11:00 AM EDT Ancillary Procedure [facility] [address] [facility] [address] [place] [address] 01/29/2025 10:00 AM EDT Consult Adult Medicine [address] [phone] Markus Hopper MD [address] [place] [address] 02/11/2025 3:45 PM EDT Office Visit Orthopedic Surgery [address] [place] [phone] Placido Marinelli, DPM [address] [facility] [address] [place] [address] documented as of this encounter Procedures Procedure Name Priority Date/Time Associated Diagnosis Comments XR KNEE 4+ VIEWS LEFT Routine 12/11/2024 12:32 PM EST Left leg pain documented in this encounter Results * XR Knee 4+ Views Left (12/11/2024 [...] Signed Date: 12/11/2024 16:06 ET Workstation ID: [id number] Transcribed By: Self Edit Transcribed Date: 12/11/2024 [...] Signed Date: 12/11/2024 16:06 ET Workstation ID: [id number] Transcribed By: Self Edit Transcribed Date: 12/11/2024 16:03 ET Diana REYES IMG XR PROCEDURES Final Resul t documented in this encounter Visit Diagnoses Diagnosis Left leg pain Pain in soft tissues of limb documented in this encounter Care Teams Auto Appraiser Relationship Specialty Start Date End Date Markus Hopper MD [address] [place] [address] PCP - General 12/23/22 documented as of this encounter
[2025-01-09 20:57] LABS: MANUAL DIFF FLAG NO
[2025-01-09 20:59] LABS: Basophils Percent Auto 0.4 % (0-2); Eosinophils Absolute Auto 0.2 X10*3/uL (0.0-0.4); Eosinophils Percent Auto 2.4 % (0-4); Hematocrit 31.5 % (37.0-47.0); Hemoglobin 10.4 g/dl (12.0-16.0); Imm Gran Abs Auto 0.02 X10*3/uL (0.00-0.03); Imm Gran Pct Auto 0.3 % (0.0-0.4); Lymphocytes Absolute Auto 1.4 X10*3/uL (1.2-4.9); Lymphocytes Percent Auto 17.2 % (20-40); Mean Corpuscular Hemoglobin 31.5 pg (27.0-33.0); Mean Corpuscular Volume 95.5 fL (80.0-98.0); Mean Platelet Volume 10.3 fL (9.4-12.3); Monocytes Absolute Auto 0.8 X10*3/uL (0.1-1.2); Monocytes Percent Auto 9.8 % (2-11); Neutrophils Absolute Auto 5.5 x10*3/uL (2.0-8.3); Neutrophils Percent Auto 69.9 % (45-73); Platelet Count 311 X10*3/uL (160-400); Red Cell Distribution Width 14.9 % (11.0-16.0); White Blood Count 7.9 X10*3/uL (4.8-10.8)
[2025-01-09 21:13] LABS: Alanine Aminotransferase 21 U/L (0-31); Albumin Level 4.1 g/dL (3.5-5.0); Alkaline Phosphatase 143 U/L (39-117); Anion Gap 14 (12-20); Aspartate Amino Transferase 26 U/L (5-31); Bilirubin Total 0.2 mg/dL (0.0-1.0); Blood Urea Nitrogen 44 mg/dL (9-16); Calcium 9.4 mg/dL (8.4-10.2); Carbon Dioxide 19 mmol/L (22-29); Chloride 116 mmol/L (96-108); Creatinine Clr Calc Pharmacy 13.4; Estimated Glomerular Filt Rate 28; Glucose Random 99 mg/dL (60-115); Magnesium 2.2 mg/dL (1.6-2.6); Sodium 144 mmol/L (135-145); Total Protein 7.4 g/dL (6.5-8.0)
[2025-01-09 21:21] LABS: Troponin-I High Sensitivity 6.4 ng/L (<3.5-17.0)
[2025-01-09 22:28] VITALS: BP 117/70; PULSE 102; RESP 16; TEMP 36.4; O2SAT 96
[2025-01-10] MEDS: Acetaminophen 325 MG TABLET 650 MG PO (00:21)
[2025-01-10 00:34] VITALS: BP 124/79; PULSE 69; RESP 16; TEMP 37; O2SAT 96
== END 2025-01-10 00:35 | disposition home or self-care (01) ==
PROVIDERS: Physician Assistant Medical; Emergency Provider Internal Medicine; PCP Family Medicine
DX: S09.90XA Unspecified injury of head, initial encounter (principal); R00.0 Tachycardia, unspecified; R51.9 Headache, unspecified; M54.2 Cervicalgia; W19.XXXA Unspecified fall, initial encounter; Y93.9 Activity, unspecified; Y92.9 Unspecified place or not applicable; Y99.8 Other external cause status; Z79.899 Other long term (current) drug therapy; Z87.891 Personal history of nicotine dependence
CPT/HCPCS: 36415; 70450; 72125; 80053; 83735; 84484; 85025; 93005; 99284; 99285

== ENCOUNTER → 2025-01-09 18:56 | Outpatient (BNV) | payer MEDICARE, SELFPAY | PROVIDERS: Emergency Provider Internal Medicine; PCP Family Medicine; Visit Provider Internal Medicine | DX: R00.0 Tachycardia, unspecified (principal) | CPT/HCPCS: 93010 ==

== ENCOUNTER → 2025-01-09 19:00 | Outpatient (BNV) | payer MEDICARE, SELFPAY | PROVIDERS: PCP Family Medicine; Visit Provider Radiology Diagnostic Radiology | DX: S09.90XA Unspecified injury of head, initial encounter (principal) | CPT/HCPCS: 70450; 72125 ==

== ENCOUNTER 2025-05-10 11:38 | Inpatient (IN) | payer OTHER, SELFPAY ==
[2025-05-10 11:48] VITALS: BP 127/80
[2025-05-10 11:49] VITALS: BP 121/54; PULSE 118; RESP 12; TEMP 37.2; O2SAT 94; BMI 17.0
--- NOTE | 2025-05-10 12:06 | PC.NURSE ---
From home currently on hospice, has not eaten in 2-3 days, family attempting to medicate with liquid medications however stating patient unable to swallow. Upon arrival patient calm, does not appear to be in any pain or distress. Turned and repositioned with pillow placed between knees.
--- NOTE | 2025-05-10 13:06 | ED.GENADULT ---
HPI - General Adult General Chief complaint: General Medical Stated complaint: FAMILY UNABLE TO CARE FOR HOSPICE ANYMORE PER EMS Time Seen by Provider: 05/10/25 12:38 Source: patient, RN notes reviewed, old records reviewed and other (outpatient VNA services) Mode of arrival: EMS Limitations: language barrier and altered mental status History of Present Illness ED Provider: Vipin ESPAÑA narrative: 85-year-old female with past medical history significant for dementia, physical deconditioning presents for evaluation of ?hospice care. ? The patient is a patient of [facility]. Apparently she has had increased agitation over last 2 weeks. She has not been tolerating her oral morphine for comfort She was sent in by the hospice VNA, Rachell salvador to be admitted for IV comfort measures. The patient appears quite cachectic but in no obvious distress. She is afebrile Related Data Home Medications ?Medication ?Instructions ?Recorded ?Confirmed amlodipine 5 mg tablet 5 mg PO DAILY 08/22/24 10/06/24 atorvastatin 80 mg tablet 80 mg PO DAILY 08/22/24 10/06/24 losartan 100 mg tablet 100 mg PO DAILY 08/22/24 10/06/24 metoprolol tartrate 50 mg tablet 50 mg PO BID 08/22/24 10/06/24 famotidine 20 mg tablet 20 mg PO BID PRN heartburn 10/06/24 10/06/24 fluticasone propionate 50 1 spray intranasal DAILY 10/06/24 10/06/24 mcg/actuation nasal spray,suspension Allergies Allergy/AdvReac Type Severity Reaction Status Date / Time nut - unspecified (NUTS) Allergy Severe ANAPHYLAXIS Verified 05/10/25 11:50 nitrofurantoin (From Allergy Unknown ITCHING Verified 05/10/25 11:50 MACROBID) Review of Systems Review of Systems: The patient does not contribute to review of systems Yes Unobtainable due to mental status PMFSH Past Medical History Medical History Chronic anemia CKD (chronic kidney disease) stage 4, GFR 15-29 ml/min GERD (gastroesophageal reflux disease) Hyperlipidemia HTN (hypertension) Social History Social History Patient Tobacco Use Status: Former Tobacco user Advance Directives: Yes Advance Directives on File: Yes Advance Directives Date on File: 10/11/24 service: No Physical Exam ED Vital Signs: Vital Signs - 24 hr 05/10/25 11:49 Temperature 98.9 F Pulse Rate 118 H Respiratory Rate 12 Blood Pressure 121/54 L Pulse Oximetry 94 Oxygen Delivery Method Room Air BMI result Body Mass Index 17.0 Const General: no acute distress Nutritional Appearance: cachectic HENMT Head: Yes normocephalic and Yes atraumatic Eyes Eyelids: Yes eyelids normal Conjunctivae: conjunctivae normal Sclerae: sclerae normal Corneas: corneas normal Pupils: Equal, round and reactive pupils present EOM: EOMs intact bilaterally Neck Neck: Yes full ROM Resp Effort & Inspection: normal respiratory effort, able to speak in complete sentences and not labored Cardio Rate: regular rate Rhythm: regular rhythm GI Inspection: No distended Palpation (GI): Soft to palpation, not firm, nontender, no guarding and not rigid Skin General skin exam: elasticity normal Neuro Cranial nerves: Yes Equal, round and reactive pupils present and Yes Bilaterally intact EOM present Medical Decision Making Medical Decision Making MDM Narrative: 85-year-old female presents for evaluation from [facility] for comfort measures only. The patient does not appear to be any acute distress during my evaluation, but she does not contribute to review of systems or much of exam. I touched base with Rachell salvador from [facility] and hospice care who recommends admission for comfort measures only. Discussed with the hospitalist who will admit the patient Differential Diagnosis Differential Diagnoses: The differential diagnosis associated with the presentation includes End of life care Physical deconditioning Failure to thrive Dementia Admission/Observation Consideration of admission/observation: Escalation of care including admission/observation considered Consult Healthcare Provider Management of the patient was discussed with: Hospitalist (The patient will be admitted to the hospitalist service) and Digital Media Analyst (Hospice VNA) Discharge Plan Discharge Clinical Impression: Admission for hospice care Patient Disposition: Admitted As Inpatient
--- NOTE | 2025-05-10 13:28 | P.HPHOSP_ITS ---
History of Present Illness Date of Service: 05/10/25 Attending physician on admission: Jm Cole Chief Complaint: Per family - not eating or drinking Concha Garcia is 85 y/o woman w/ PMHx significant for advanced dementia with behavioral disturbances on home hospice, essential hypertension, CKD and hyperlipidemia was brought to the emergency department from home due to agitation. Patient has been receiving hospice services and was sent to the hospital for GIP admission by hospice VNA for better control of her terminal agitation and inability to drink or eat. According to the daughter, Paty, patient has been hallucinating, had an event of prolonged apnea and looking very scared at times. This has been happening for the last 2 days. Also, patient's daughter expressed distress. Patient is bed-bound and nonverbal. In the ED, she was found to have tachycardia. She is currently on room and satting 84%. Blood pressure stable and there is no fever. Review of Systems Review of Systems: Yes Unobtainable due to mental status PMFSH Medical History Chronic anemia CKD (chronic kidney disease) stage 4, GFR 15-29 ml/min GERD (gastroesophageal reflux disease) Hyperlipidemia HTN (hypertension) Social History Patient Tobacco Use Status: Former Tobacco user Advance Directives: Yes Advance Directives on File: Yes Advance Directives Date on File: 10/11/24 service: No Meds Allergies Allergy/AdvReac Type Severity Reaction Status Date / Time nut - unspecified (NUTS) Allergy Severe ANAPHYLAXIS Verified 05/10/25 11:50 nitrofurantoin (From Allergy Unknown ITCHING Verified 05/10/25 11:50 MACROBID) Active Medications: Current Medications Glycopyrrolate (Glycopyrrolate 0.2 Mg/Ml Vial) 0.2 mg IVPUSH Q6H PRN PRN Reason: Respiratory secretions Haloperidol Lactate (Haloperidol Lactate 5 Mg/Ml Vial) 0.5 mg IVPUSH Q4H PRN PRN Reason: Delirium Lorazepam (Lorazepam 2 Mg/Ml Vial) 0.5 mg IVPUSH Q4H PRN PRN Reason: Myoclonic twitching/anxiety Morphine Sulfate (Morphine Sulfate 2 Mg/Ml Cartridge) 2 mg IVPUSH Q1H PRN PRN Reason: Pain, Severe (7-10)/ RR>/=24 Ondansetron HCl (Ondansetron Hcl 4 Mg/2 Ml Vial) 4 mg IVPUSH Q8H PRN PRN Reason: Nausea and Vomiting Home Medications ?Medication ?Instructions ?Recorded ?Confirmed ?Last Taken ?Type amlodipine 5 mg tablet 5 mg PO DAILY 08/22/2410/0610/05/24 History atorvastatin 80 mg tablet 80 mg PO DAILY 08/22/24 1206/2210/05/24 History losartan 100 mg tablet 100 mg PO DAILY 08/22/2406/2210/05/24 History metoprolol tartrate 50 mg tablet 50 mg PO BID 08/22/24 10/06/24 10/05/24 History famotidine 20 mg tablet 20 mg PO BID PRN heartburn 1 12/07/23 10/06/24 Unknown History fluticasone propionate 50 1 spray intranasal DAILY 06/2210/06/24 10/05/24 History mcg/actuation nasal spray,suspension Physical Exam Vital Signs and Narrative: Vital Signs: Last Vital Signs Temp 98.9 F 05/10/25 11:49 Pulse 118 H 05/10/25 11:49 Resp 12 05/10/25 11:49 BP 121/54 L 05/10/25 11:49 Pulse Ox 94 05/10/25 11:49 O2 Del Method Room Air 05/10/25 11:49 BMI result Body Mass Index 17.0 Constitutional - Chronically ill, nonverbal. HEENT - PER, EOMI Heart - tachycardic, normal rhythm Lungs - Normal lung expansion, Normal respiratory effort, No respiratory distress, CTA bilaterally Abdomen - NT / ND; +BS Extremities - no calf tenderness bilaterally, no swelling Musculoskeletal - generalized muscular atrophy. Contracted extremities. Skin - Warm/Dry. No pallor. No jaundice. Neurological - Alert. Nonverbal. Psychological - No agitation. Assessment and Plan (1) Admission for hospice care: Status: Acute (2) Dementia: Qualifiers: Dementia type: unspecified type Dementia severity: severe Dementia behavioral or psychological symptom: with agitation Qualified Code(s): F03.C11 - Unspecified dementia, severe, with agitation Status: Acute (3) Dementia with agitation: Qualifiers: Dementia type: unspecified type Dementia severity: severe Qualified Code(s): F03.C11 - Unspecified dementia, severe, with agitation Status: Acute Plan Concha Garcia is 85 y/o woman w/ PMHx significant for advanced dementia with behavioral disturbances on home hospice, essential hypertension, CKD and hyperlipidemia presents with: Terminal agitation in the setting of advance dementia. Symptoms refractory to routine hospice care at home. * Admit to [facility] for acute symptom management and comfort care. * Initial comfort-focused measures: -morphine 2 mg IV every hour p.r.n. -scopolamine patch -Haldol 0.5 mg IV every 4 hours p.r.n. -artificial tears 2 drops both eyes every 4 hours p.r.n. -Zofran 4 mg IV every 8 hours p.r.n. -per daughter, pt cannot get lorazempam (unwanted reaction) -will discontinue nonessential medications. -no routine labs -no VS checks -monitor response to medication and just to ensure comfort -provide emotional aspirin pressure support to family -continue close communication with hospice interdisciplinary team Code status: TOOLS DEVELOPER/DNR/DNI Quality Stroke Does the patient have a stroke diagnosis?: No VTE Prior VTE?: No VTE Risk Level:: Medical - moderate - high VTE Device Contraindication: Treatment Not Indicated VTE Drug Contraindication: Treatment Not Indicated
--- NOTE | 2025-05-10 13:40 | PC.NURSE ---
Mouth care provided, scopolamine patch placed behind R Ear per DEC pt offers no complaints at this time
--- NOTE | 2025-05-10 14:12 | PHA.MEDREC ---
Addendum entered by Soha Kelley RPh 05/10/25 14:36: reviewed by [facility] Original Note: Pharmacy Consult ? Medication Reconciliation Pharmacy has completed the medication reconciliation. Spoke with patients daughter over the phone, Paty, and used med list from [facility]. Paty reports patient has only been taking morphine and haloperidol oral liquids due to difficulty swallowing, last had both meds this morning around 10 AM. As of 3 days ago, patient is no longer taking metoprolol due to same reason per Paty.
--- NOTE | 2025-05-10 14:17 | MHC.CM.PN ---
CM RECEIVED CALL FROM [facility] DIRECT[facility] THAT PATIENT WILL BE ADMITTED [facility] HOSPICE FOR PAIN CONTROL. CM WILL CONTINUE TO FOLLOW.
--- NOTE | 2025-05-10 14:40 | PC.NURSE ---
message sent to Emma [place] [facility]
[2025-05-11 05:38] VITALS: RESP 12
--- NOTE | 2025-05-11 07:15 | P.PNIM_ITS ---
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/hospice GIP, daughter at bedside, seems comfortable, Physical Exam Vital Signs: Vital Signs: Last Vital Signs Temp 98.9 F 05/10/25 11:49 Pulse 118 H 05/10/25 11:49 Resp 12 05/11/25 05:38 BP 121/54 L 05/10/25 11:49 Pulse Ox 94 05/10/25 11:49 O2 Del Method Room Air 05/10/25 11:49 BMI result Body Mass Index 17.0 Const: Other: unresponsive, breathing comfortably Objective Data Active Medications Acetaminophen (Acetaminophen Supp 650 Mg Supp.Rect) 650 mg MA Q4H PRN PRN Reason: Fever Artificial Tears (Artificial Tears 15 Ml Drops) 2 drop EYE-BOTH Q4H PRN PRN Reason: Dry Eyes Bisacodyl (Bisacodyl 10 Mg Supp.Rect) 10 mg MA BEDTIME PRN PRN Reason: Constipation Glycopyrrolate (Glycopyrrolate 0.2 Mg/Ml Vial) 0.2 mg IVPUSH Q6H PRN PRN Reason: Respiratory secretions Last Admin: 05/11/25 00:32 Dose: 0.2 mg Documented By: FRANCOISE Haloperidol Lactate (Haloperidol Lactate 5 Mg/Ml Vial) 0.5 mg IVPUSH Q4H PRN PRN Reason: Delirium Last Admin: 05/11/25 00:32 Dose: 0.5 mg Documented By: FRANCOISE Morphine Sulfate (Morphine Sulfate 2 Mg/Ml Cartridge) 2 mg IVPUSH Q1H PRN PRN Reason: Pain, Severe (7-10)/ RR>/=24 Last Admin: 05/11/25 04:28 Dose: 2 mg Documented By: FRANCOISE Ondansetron HCl (Ondansetron Hcl 4 Mg/2 Ml Vial) 4 mg IVPUSH Q8H PRN PRN Reason: Nausea and Vomiting Scopolamine (Scopolamine 1.5 Mg Patch.Td.3) 1.5 mg EAR-BEHIND Q72H CHILO Last Admin: 05/10/25 13:38 Dose: 1.5 mg Documented By: ILEANA Assessment and Plan (1) Dementia with agitation: Status: Acute Plan Conchaabby Garcia is 85 y/o woman w/ PMHx significant for advanced, terminal dementia with behavioral disturbances on home hospice, essential hypertension, CKD and hyperlipidemia on hospice at home admitted due to worsening agitations, not eating/drinking Terminal dementia with agitation on hospice at home but could not be controled. On GIP hospice for acute symptom management and comfort care. -morphine 2 mg IV every hour p.r.n. -scopolamine patch -Haldol 0.5 mg IV every 4 hours p.r.n. -artificial tears 2 drops both eyes every 4 hours p.r.n. -Zofran 4 mg IV every 8 hours p.r.n. -per daughter, pt cannot get lorazempam (unwanted reaction) -will discontinue nonessential medications. -no routine labs -no VS checks -monitor response to medication and just to ensure comfort -provide emotional and spiritual support to family -continue close communication with hospice interdisciplinary team Code status: TEA LEAF READER/DNR/DNI Quality Stroke Does the patient have a stroke diagnosis?: No VTE Prior VTE?: No VTE Risk Level:: Medical - moderate - high VTE Device Contraindication: Treatment Not Indicated VTE Drug Contraindication: Treatment Not Indicated
[2025-05-11 14:00] VITALS: RESP 14
--- NOTE | 2025-05-11 16:34 | MHC.CM.PN ---
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 [facility] WILL FAX A COPY OF PTS MOLST Original Note: PT ADMITTED GIP, ON SERVICE WITH [facility] HCP ON FILE, COPY OF MOLST NEEDED PCP: EDGAR SHIN
[2025-05-11 19:48] VITALS: RESP 12
[2025-05-12 06:00] VITALS: RESP 12
--- NOTE | 2025-05-12 12:17 | HO.PM.IMPN ---
Subjective Subjective Date of Service: 05/12/25 Interval History: Being seen in f/u for APPLE PACKING HEADER/hospice GIP, daughter at bedside, seems comfortable, but daughter reports intermittent episodes of agitation Physical Exam Vital Signs: Vital Signs: Last Vital Signs Temp 98.9 F 05/10/25 11:49 Pulse 118 H 05/10/25 11:49 Resp 12 05/12/25 06:00 BP 121/54 L 05/10/25 11:49 Pulse Ox 94 05/10/25 11:49 O2 Del Method Room Air 05/10/25 11:49 BMI result Body Mass Index 17.0 Const: Other: unresponsive, breathing comfortably Objective Data Active Medications Acetaminophen (Acetaminophen Supp 650 Mg Supp.Rect) 650 mg [place] Q4H PRN PRN Reason: Fever Artificial Tears (Artificial Tears 15 Ml Drops) 2 drop EYE-BOTH Q4H PRN PRN Reason: Dry Eyes Bisacodyl (Bisacodyl 10 Mg Supp.Rect) 10 mg [place] BEDTIME PRN PRN Reason: Constipation Glycopyrrolate (Glycopyrrolate 0.2 Mg/Ml Vial) 0.2 mg IVPUSH Q6H PRN PRN Reason: Respiratory secretions Last Admin: 05/11/25 00:32 Dose: 0.2 mg Documented By: FRANCOISE Haloperidol Lactate (Haloperidol Lactate 5 Mg/Ml Vial) 0.5 mg IVPUSH Q4H PRN PRN Reason: Delirium Last Admin: 05/12/25 08:54 Dose: 0.5 mg Documented By: JOEL Morphine Sulfate (Morphine Sulfate 2 Mg/Ml Cartridge) 2 mg IVPUSH Q1H PRN PRN Reason: Pain, Severe (7-10)/ RR>/=24 Last Admin: 05/12/25 08:54 Dose: 2 mg Documented By: JOEL Ondansetron HCl (Ondansetron Hcl 4 Mg/2 Ml Vial) 4 mg IVPUSH Q8H PRN PRN Reason: Nausea and Vomiting Scopolamine (Scopolamine 1.5 Mg Patch.Td.3) 1.5 mg EAR-BEHIND Q72H [facility]O Last Admin: 05/10/25 13:38 Dose: 1.5 mg Documented By: ILEANA Assessment and Plan (1) Dementia with agitation: Status: Acute Plan Concha Virgil Finch is 85 y/o woman w/ PMHx significant for advanced, terminal dementia with behavioral disturbances on home hospice, essential hypertension, CKD and hyperlipidemia on hospice at home admitted due to worsening agitations, not eating/drinking Terminal dementia with agitation on hospice at home but could not be controled. On [facility] hospice for acute symptom management and comfort care. -morphine 2 mg IV every hour p.r.n. -scopolamine patch -Haldol 0.5 mg IV every 4 hours p.r.n. -artificial tears 2 drops both eyes every 4 hours p.r.n. -Zofran 4 mg IV every 8 hours p.r.n. -per daughter, pt cannot get lorazempam (unwanted reaction) -will discontinue nonessential medications. -no routine labs -no VS checks -monitor response to medication and just to ensure comfort -provide emotional and spiritual support to family -continue close communication with hospice interdisciplinary team Try oral meds today and if does ok with that can go home with PO meds Code status: APPLE PACKING HEADER/DNR/DNI Quality Stroke Does the patient have a stroke diagnosis?: No VTE Prior VTE?: No VTE Risk Level:: Medical - moderate - high VTE Device Contraindication: Treatment Not Indicated VTE Drug Contraindication: Treatment Not Indicated
--- NOTE | 2025-05-12 12:52 | MHC.CLN ---
NUTRITION PATIENT STATUS IS COMFORT MEASURES ONLY. [facility] HOSPICE ADMISSION FOR PAIN CONTROL. NO DIET ORDER. RD AVAILABLE NEEDED.
--- NOTE | 2025-05-12 16:29 | MHC.CM.PN ---
Patient is active with [facility]. She is admitted GIP r/t uncontrolled symptoms of Agitation. DP per [facility]. If she is able to return home she will transport via BLS.
[2025-05-12 23:25] VITALS: RESP 12
[2025-05-12 23:55] VITALS: RESP 12
--- NOTE | 2025-05-13 09:40 | HO.PM.IMPN ---
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, daughter at bedside, seems comfortable, some agitation this morning before meds according to daughter Physical Exam Vital Signs: Vital Signs: Last Vital Signs Temp 98.9 F 05/10/25 11:49 Pulse 118 H 05/10/25 11:49 Resp 12 05/12/25 23:55 BP 121/54 L 05/10/25 11:49 Pulse Ox 94 05/10/25 11:49 O2 Del Method Room Air 05/10/25 11:49 BMI result Body Mass Index 17.0 Const: Other: unresponsive, breathing comfortably Objective Data Active Medications Acetaminophen (Acetaminophen Supp 650 Mg Supp.Rect) 650 mg [place] Q4H PRN PRN Reason: Fever Artificial Tears (Artificial Tears 15 Ml Drops) 2 drop EYE-BOTH Q4H PRN PRN Reason: Dry Eyes Bisacodyl (Bisacodyl 10 Mg Supp.Rect) 10 mg [place] BEDTIME PRN PRN Reason: Constipation Glycopyrrolate (Glycopyrrolate 0.2 Mg/Ml Vial) 0.2 mg IVPUSH Q6H PRN PRN Reason: Respiratory secretions Last Admin: 05/11/25 00:32 Dose: 0.2 mg Documented By: FRANCOISE Haloperidol Lactate (Haloperidol Lactate 5 Mg/Ml Vial) 0.5 mg IVPUSH Q4H PRN PRN Reason: Delirium Last Admin: 05/13/25 09:14 Dose: 0.5 mg Documented By: SUJATHA Morphine Sulfate (Morphine Sulfate 2 Mg/Ml Cartridge) 2 mg IVPUSH Q1H PRN PRN Reason: Pain, Severe (7-10)/ RR>/=24 Last Admin: 05/13/25 09:04 Dose: 2 mg Documented By: SUJATHA Ondansetron HCl (Ondansetron Hcl 4 Mg/2 Ml Vial) 4 mg IVPUSH Q8H PRN PRN Reason: Nausea and Vomiting Scopolamine (Scopolamine 1.5 Mg Patch.Td.3) 1.5 mg EAR-BEHIND Q72H [facility] Last Admin: 05/10/25 13:38 Dose: 1.5 mg Documented By: ILEANA Assessment and Plan (1) Dementia with agitation: Status: Acute Plan Conchaabby Garcia is 85 y/o woman w/ PMHx significant for advanced, terminal dementia with behavioral disturbances on home hospice, essential hypertension, CKD and hyperlipidemia on hospice at home admitted due to worsening agitations, not eating/drinking Terminal dementia with agitation on hospice at home but could not be controled. On [facility] hospice for acute symptom management and comfort care. -morphine 2 mg IV every hour p.r.n. -scopolamine patch -Haldol 0.5 mg IV every 4 hours p.r.n. -artificial tears 2 drops both eyes every 4 hours p.r.n. -Zofran 4 mg IV every 8 hours p.r.n. -per daughter, pt cannot get lorazempam (unwanted reaction) -will discontinue nonessential medications. -no routine labs -no VS checks -monitor response to medication and just to ensure comfort -provide emotional and spiritual support to family -continue close communication with hospice interdisciplinary team, and adjust meds as needed Try oral meds today and if does ok with that can go home with PO meds Code status: MANAGER EDUCATIONAL/DNR/DNI Quality Stroke Does the patient have a stroke diagnosis?: No VTE Prior VTE?: No VTE Risk Level:: Medical - moderate - high VTE Device Contraindication: Treatment Not Indicated VTE Drug Contraindication: Treatment Not Indicated
[2025-05-13] MEDS: Artificial Tears 15 ML DROPS 1 DROP EYE-BOTH ×2 (16:27→20:30)
[2025-05-14] MEDS: Artificial Tears 15 ML DROPS 1 DROP EYE-BOTH ×2 (06:27→15:28)
--- NOTE | 2025-05-14 09:33 | HO.PM.IMPN ---
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, daughter at bedside, seems comfortable, some periods of agitation according to daughter Physical Exam Vital Signs: Vital Signs: Last Vital Signs Temp 98.9 F 05/10/25 11:49 Pulse 118 H 05/10/25 11:49 Resp 12 05/12/25 23:55 BP 121/54 L 05/10/25 11:49 Pulse Ox 94 05/10/25 11:49 O2 Del Method Room Air 05/10/25 11:49 BMI result Body Mass Index 17.0 Const: Other: unresponsive, breathing comfortably Objective Data Active Medications Acetaminophen (Acetaminophen Supp 650 Mg Supp.Rect) 650 mg [place] Q4H PRN PRN Reason: Fever Artificial Tears (Artificial Tears 15 Ml Drops) 1 drop EYE-BOTH Q4H PRN PRN Reason: Dry Eyes Last Admin: 05/14/25 06:27 Dose: 1 drop Documented By: AMELIA Bisacodyl (Bisacodyl 10 Mg Supp.Rect) 10 mg IN BEDTIME PRN PRN Reason: Constipation Glycopyrrolate (Glycopyrrolate 0.2 Mg/Ml Vial) 0.2 mg IVPUSH Q6H PRN PRN Reason: Respiratory secretions Last Admin: 05/11/25 00:32 Dose: 0.2 mg Documented By: FRANCOISE Haloperidol Lactate (Haloperidol Lactate 5 Mg/Ml Vial) 0.5 mg IVPUSH Q4H PRN PRN Reason: Delirium Last Admin: 05/13/25 22:34 Dose: 0.5 mg Documented By: AMELIA Comments: pt's family requested for prevention of delirium. Morphine Sulfate (Morphine Sulfate 2 Mg/Ml Cartridge) 2 mg IVPUSH Q1H PRN PRN Reason: Pain, Severe (7-10)/ RR>/=24 Last Admin: 05/14/25 08:45 Dose: 2 mg Documented By: SUJATHA Ondansetron HCl (Ondansetron Hcl 4 Mg/2 Ml Vial) 4 mg IVPUSH Q8H PRN PRN Reason: Nausea and Vomiting Scopolamine (Scopolamine 1.5 Mg Patch.Td.3) 1.5 mg EAR-BEHIND Q72H [facility] Last Admin: 05/13/25 12:59 Dose: 1.5 mg Documented By: SUJATHA Assessment and Plan (1) Dementia with agitation: Status: Acute Plan Concha Garcia is 85 y/o woman w/ PMHx significant for advanced, terminal dementia with behavioral disturbances on home hospice, essential hypertension, CKD and hyperlipidemia on hospice at home admitted due to worsening agitations, not eating/drinking Terminal dementia with agitation on hospice at home but could not be controled. On [facility] hospice for acute symptom management and comfort care. -morphine 2 mg IV every hour p.r.n. and 2 mg scheduled Q6 -scopolamine patch -Haldol 0.5 mg IV every 4 hours p.r.n. -artificial tears 2 drops both eyes every 4 hours p.r.n. -Zofran 4 mg IV every 8 hours p.r.n. -per daughter, pt cannot get lorazempam (unwanted reaction) -will discontinue nonessential medications. 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
[2025-05-15] MEDS: Artificial Tears 15 ML DROPS 1 DROP EYE-BOTH (08:25)
--- NOTE | 2025-05-15 10:48 | P.PNIM_ITS ---
Subjective Subjective Date of Service: 05/15/25 Interval History: Per daughter less agitation Physical Exam Vital Signs: Vital Signs: Last Vital Signs Temp 98.9 F 05/10/25 11:49 Pulse 118 H 05/10/25 11:49 Resp 12 05/12/25 23:55 BP 121/54 L 05/10/25 11:49 Pulse Ox 94 05/10/25 11:49 O2 Del Method Room Air 05/10/25 11:49 BMI result Body Mass Index 17.0 Const: Other: unresponsive, breathing comfortably Objective Data Active Medications Acetaminophen (Acetaminophen Supp 650 Mg Supp.Rect) 650 mg [place] Q4H PRN PRN Reason: Fever Artificial Tears (Artificial Tears 15 Ml Drops) 1 drop EYE-BOTH Q4H PRN PRN Reason: Dry Eyes Last Admin: 05/15/25 08:25 Dose: 1 drop Documented By: GRISELDA Bisacodyl (Bisacodyl 10 Mg Supp.Rect) 10 mg [place] BEDTIME PRN PRN Reason: Constipation Glycopyrrolate (Glycopyrrolate 0.2 Mg/Ml Vial) 0.2 mg IVPUSH Q6H PRN PRN Reason: Respiratory secretions Last Admin: 05/11/25 00:32 Dose: 0.2 mg Documented By: FRANCOISE Haloperidol Lactate (Haloperidol Lactate 5 Mg/Ml Vial) 0.5 mg IVPUSH Q4H PRN PRN Reason: Delirium Last Admin: 05/13/25 22:34 Dose: 0.5 mg Documented By: AMELIA Comments: pt's family requested for prevention of delirium. Morphine Sulfate (Morphine Sulfate 2 Mg/Ml Cartridge) 2 mg IVPUSH Q1H PRN PRN Reason: Pain, Severe (7-10)/ RR>/=24 Last Admin: 05/15/25 08:22 Dose: 2 mg Documented By: GRISELDA Morphine Sulfate (Morphine Sulfate 2 Mg/Ml Cartridge) 2 mg IVPUSH Q6H CHILO; Protocol Last Admin: 05/15/25 10:33 Dose: 2 mg Documented By: GRISELDA Ondansetron HCl (Ondansetron Hcl 4 Mg/2 Ml Vial) 4 mg IVPUSH Q8H PRN PRN Reason: Nausea and Vomiting Scopolamine (Scopolamine 1.5 Mg Patch.Td.3) 1.5 mg EAR-BEHIND Q72H [facility] Last Admin: 05/13/25 12:59 Dose: 1.5 mg Documented By: SUJATHA Assessment and Plan (1) Dementia with agitation: Status: Acute Plan Concha Garcia is 85 y/o woman w/ PMHx significant for advanced, terminal dementia with behavioral disturbances on home hospice, essential hypertension, CKD and hyperlipidemia on hospice at home admitted due to worsening agitations, not eating/drinking Terminal dementia with agitation on hospice at home but could not be controled. On [facility] hospice for acute symptom management and comfort care. -morphine 2 mg IV every hour p.r.n. and 2 mg scheduled Q6 hrs -scopolamine patch -Haldol 0.5 mg IV every 4 hours p.r.n. -artificial tears 2 drops both eyes every 4 hours p.r.n. -Zofran 4 mg IV every 8 hours p.r.n. -per daughter, pt cannot get lorazempam (unwanted reaction) -will discontinue nonessential medications. -no routine labs -no VS checks -monitor response to medication and just to ensure comfort -provide emotional and spiritual support to family -continue close communication with hospice interdisciplinary team, and adjust meds as needed Code status: ACTIVITIES ASSISTANT/DNR/DNI Quality Stroke Does the patient have a stroke diagnosis?: No VTE Prior VTE?: No VTE Risk Level:: Medical - moderate - high VTE Device Contraindication: Treatment Not Indicated VTE Drug Contraindication: Treatment Not Indicated
--- NOTE | 2025-05-15 18:50 | PM.EVENT ---
Event Note Date of Service: 05/15/25 Event Note: 6:33 PM - I was called to patient's bedside to pronounce that Concha Garcia has . No spontaneous movement were present. There was no respond to verbal or tactile stimuli. Pupils were mid-dilated and fixed. No breath sounds were appreciated over either lung field. No carotid pulses were palpable. No heart sounds were auscultated over the entire pericardium. Patient pronounced at 05/15/2025-18:38. Family (daughter) was at bedside and informed Concha has . Time Spent With Patient Time: Total time managing care of this patient today ____ minutes.
--- NOTE | 2025-05-15 18:56 | P.DS_ITS ---
DS: Providers Provider Date of Service: 05/15/25 Date of admission: 05/10/25 13:11 Date of discharge: 05/15/25 Primary care physician: Markus Hopper MD Admitting clinician: Jm Cole Attending physician on admission: Jasbir White Consults: 05/10/25 13:13 Consult to Case Management Routine Comment: Consult to Hospice Routine Comment: 05/10/25 13:55 Consult to Landscape Architecture Teacher Routine Comment: Attending physician on discharge: [facility] Discharging clinician: Jm Cole DS: Diagnosis Discharge Diagnosis (1) Dementia with agitation: Status: Acute DS: Summary Hospital Course Hospital Course: HPI: Concha Garcia is 85 y/o woman w/ PMHx significant for advanced dementia with behavioral disturbances on home hospice, essential hypertension, CKD and hyperlipidemia was brought to the emergency department from home due to agitation. Patient has been receiving hospice services and was sent to the hospital for [facility] admission by hospice VNA for better control of her terminal agitation and inability to drink or eat. According to the daughter, Paty, patient has been hallucinating, had an event of prolonged apnea and looking very scared at times. This has been happening for the last 2 days. Also, patient's daughter expressed distress. Patient is bed-bound and nonverbal. In the ED, she was found to have tachycardia. She is currently on room and satting 84%. Blood pressure stable and there is no fever. The patient was admitted to [facility] floor STI admit for acute management of symptoms and comfort care for terminal agitation in the setting of advanced dementia. She was started on morphine 2 mg IV every 2 hours and scopolamine patch placed. Treatment with Haldol IV, artificial tears and and Zofran was ordered as well. Time Attestation Discharge Coordination Time (in mins): 30 mins Quality: Safe Use of Opioids Does Pt have an Active Cancer Diagnosis on the Problem List?: No Quality: Stroke Does the patient have a stroke diagnosis?: No Physical Exam Exam: Exam: No spontaneous movement were present. There was no respond to verbal or tactile stimuli. Pupils were mid-dilated and fixed. No breath sounds were appreciated over either lung field. No carotid pulses were palpable. No heart sounds were auscultated over the entire pericardium. Vital Signs: Vital Signs: Last Vital Signs Temp 98.9 F 05/10/25 11:49 Pulse 118 H 05/10/25 11:49 Resp 12 05/12/25 23:55 BP 121/54 L 05/10/25 11:49 Pulse Ox 94 05/10/25 11:49 O2 Del Method Room Air 05/10/25 11:49 BMI result Body Mass Index 17.0 Discharge Plan Discharge Patient Disposition: Discharge Diagnosis: Advanced dementia, terminal agitation Referrals: Markus Hopper MD [Primary Care Provider, Family Practice] - 1 Week Discharge Medications: No Action morphine concentrate 100 mg/5 mL (20 mg/mL) solution 10 mg PO Q1H PRN (Reason: pain or shortness of breath) acetaminophen [Tylenol Arthritis] 650 mg Tablet Extended Release 1,300 mg PO BID docusate sodium [Colace] 100 mg Capsule 100 mg PO DAILY polyethylene glycol 3350 [Miralax] 17 gram/dose Powder 17 g PO DAILY PRN (Reason: Constipation) Excedrin Extra Strength 250-250-65 mg Tablet 2 tab PO DAILY PRN (Reason: Headache) Rx Instructions: not to be given with tylenol haloperidol lactate 2 mg/mL Concentrate 2 mg PO Q1H PRN (Reason: agitation/hallucinations) Systane Ultra 0.4-0.3 % Drops 1 drp OPHTHALMIC (EYE) BID Discharge Orders: Discharge Order (Routine); Ordered 05/15/25 Ordered By: Jm Cole Print Language: Sudanese
== END 2025-05-15 18:38 | disposition expired | DRG 951 ==
LOC: HO.ED 13:13 → HO.EDOVER 13:25 → HO.S3 15:38
PROVIDERS: Admitting Provider Internal Medicine; Emergency Provider Emergency Medicine; PCP Family Medicine; Visit Provider Internal Medicine
DX: Z51.5 Encounter for palliative care (principal); F03.C11 Unspecified dementia, severe, with agitation; F03.90 Unspecified dementia, unspecified severity, without behavioral disturbance, psychotic disturbance, mood disturbance, and anxiety; E78.5 Hyperlipidemia, unspecified; I12.9 Hypertensive chronic kidney disease with stage 1 through stage 4 chronic kidney disease, or unspecified chronic kidney disease; Z74.01 Bed confinement status; N18.9 Chronic kidney disease, unspecified; Z79.899 Other long term (current) drug therapy
CPT/HCPCS: 99285; J1596; J1630; J2270

== ENCOUNTER → 2025-05-10 13:11 | Outpatient (BNV) | payer OTHER, SELFPAY | PROVIDERS: Admitting Provider Internal Medicine; Emergency Provider Emergency Medicine; PCP Family Medicine; Visit Provider Internal Medicine | DX: F03.C11 Unspecified dementia, severe, with agitation (principal) | CPT/HCPCS: 99232 ==